=== PATIENT | male | born 1955 | race Caucasian/White ===

== ENCOUNTER 2017-06-24 13:50 | Emergency (ER) | payer OTHER ==
[~2017-06-24] VITALS: Ht 170.2 cm; Wt 62.1 kg
[~2017-06-24 13:50] MED LIST: DLN100 PO
[2017-06-24 14:05] VITALS: Ht 170.2 cm; Wt 62.1 kg
[2017-06-24 16:35] VITALS: TEMP 37.1
[2017-06-24 16:38] LABS: INFLUENZA B ANTIGEN Neg for Influ B (NEG)
[2017-06-24 16:44] LABS: ALBUMIN 3.4 gm/dl (3.4-5.0); CALCIUM 8.2 mg/dl (8.5-10.1); CREATININE 0.87 mg/dl (0.60-1.40); POTASSIUM 4.3 mmol/L (3.5-5.1); TOTAL PROTEIN 6.9 gm/dl (6.4-8.2)
--- NOTE | 2017-06-24 17:00 | DIAGNOSTIC IMAGING REPORT ---
SINGLE VIEW CHEST CLINICAL HISTORY: Cough. FINDINGS: An AP, portable, upright chest radiograph is compared to study dated 03/05/2015. Correlation is made with chest CT dated 12/24/1714. The examination is degraded by portable technique, apical lordotic positioning, and patient rotation. The cardiomediastinal silhouette is unremarkable. There is atherosclerotic calcification of the thoracic aorta. Emphysema and chronic interstitial thickening are similar to previous. No large pleural effusion is identified. Patchy airspace opacities are questioned in the right lower lung. No pneumothorax is seen. The skeletal structures are osteopenic. Chronic posttraumatic deformity and postoperative change is present in the left proximal humerus. There are numerous healed right-sided rib fractures. IMPRESSION: 1. Patchy airspace opacities are questioned at the right lung base. Correlate clinically for evidence of pneumonia. Radiographic follow-up to resolution is recommended. 2. Emphysema. Electronically signed by: Franki Merritt M.D. 06/24/2017 4:59 PM Dictated Date/Time: 06/24/2017 4:56 PM
[2017-06-24 17:19] LABS: BASO % 0.6 %; BASO ABS # 0.03 K/uL (0-0.2); EOS ABS # 0.11 K/uL (0-0.5); HEMATOCRIT 38.9 % (42-52); HEMOGLOBIN 13.3 g/dL (14.0-18.0); IG# 0.01 K/uL (0.00-0.02); LYMPH % 34.7 %; LYMPH ABS # 1.89 K/uL (1.2-3.4); MEAN CELL VOLUME 94.9 fL (80-100); MEAN CORPUSCULAR HEMOGLOBIN 32.4 pg (25-34); MEAN CORPUSCULAR HGB CONC 34.2 g/dl (32-36); MEAN PLATELET VOLUME 9.6 fL (7.4-10.4); MONO % 10.5 %; MONO ABS # 0.57 K/uL (0.11-0.59); NEUT ABS # 2.84 K/uL (1.4-6.5); PLATELET COUNT 146 K/uL (130-400); RED CELL DISTRIBUTION WIDTH CV 12.8 % (11.5-14.5); RED CELL DISTRIBUTION WIDTH SD 44.7 fL (36.4-46.3); WHITE BLOOD COUNT 5.45 K/uL (4.8-10.8)
[2017-06-24 18:23] VITALS: BP 126/77; PULSE 77; O2SAT 95
[2017-06-24] MEDS ORDERED: AZITHROMYCIN 250 MG TAB PO STA (18:30)
[2017-06-24] MEDS ORDERED: AZIT-60 PO (18:31)
[2017-06-24] MEDS ORDERED: ALBUTEROL HFA 8 GM INHALER INH ONE (18:45)
--- NOTE | 2017-06-24 22:38 | EMERGENCY ROOM VISIT NOTE ---
History Report prepared by Rosario: Bon Farnsworth Under the Supervision of: Dr. Jason Wadsworth M.D. First contact with patient: 14:37 Chief Complaint: FLU LIKE SX Stated Complaint: FLU History of Present Illness The patient is a 62 year old male who presents to the Emergency Room from [place] with complaints of persistent flu-like symptoms. The patient denies any cough recently, but is coughing persistently on exam. Pt also denies LOC, headache, fevers, chills, diaphoresis, visual changes, neck pain, chest pain, breathing difficulties, nausea, vomiting, abdominal pain, back pain, melena, hematochezia, urinary symptoms, numbness, weakness, lymphadenopathy, rash, or other complaints. The patient has a history of traumatic brain injury, and has difficulty speaking. He takes Dilantin daily and would also like to get this level tested today. Source of History: patient Position: other (Global) Quality: other (Flu-like) Timing: other (persistent) Associated Symptoms: No chest pain, No SOB, No nausea, No vomiting, No abdominal pain Review of Systems See HPI for pertinent positives and negatives. A total of ten systems were reviewed and were otherwise negative. Past Medical & Surgical Medical Problems: (1) Seizures Surgical Problems: (1) Traumatic brain injury Family History Patient reports no known family medical history. Social History Smoking Status: Current Every Day Smoker Alcohol Use: none Drug Use: none Marital Status: single Housing Status: lives alone Occupation Status: disabled Current/Historical Medications Scheduled Azithromycin (Zithromax), 250 MG PO DAILY Phenytoin Sodium (Dilantin), 100 MG PO BID Allergies Coded Allergies: No Known Allergies (Unverified , 09/21/16) Physical Exam Vital Signs Date Time Temp Pulse Resp B/P (MAP) Pulse Ox O2 Delivery O2 Flow Rate FiO2 06/24/17 18:23 77 18 126/77 95 Room Air 06/24/17 16:35 37.1 73 18 111/70 95 Room Air 06/24/17 14:05 36.7 81 18 129/91 97 Room Air Physical Exam GENERAL: Awake, alert, well-appearing, in no distress HENT: Normocephalic, atraumatic. Oropharynx unremarkable. EYES: Normal conjunctiva. Sclera non-icteric. NECK: Supple. No nuchal rigidity. FROM. No JVD. RESPIRATORY: Clear to auscultation. CARDIAC: Regular rate, normal rhythm. Extremities warm and well perfused. Pulses equal. ABDOMEN: Soft, non-distended. No tenderness to palpation. No rebound or guarding. No masses. RECTAL: Deferred. MUSCULOSKELETAL: Chest examination reveals no tenderness. The back is symmetrical on inspection without obvious abnormality. There is no CVA tenderness to palpation. No joint edema. LOWER EXTREMITIES: Calves are equal size bilaterally and non-tender. No edema. No discoloration. NEURO: Normal sensorium. No sensory or motor deficits noted. SKIN: No rash or jaundice noted. Medical Decision & Procedures ER Provider Diagnostic Interpretation: Radiology results as stated below per my review and radiologist interpretation: SINGLE VIEW CHEST CLINICAL HISTORY: Cough. FINDINGS: An AP, portable, upright chest radiograph is compared to study dated 03/05/2015. Correlation is made with chest CT dated 12/24/1714. The examination is degraded by portable technique, apical lordotic positioning, and patient rotation. The cardiomediastinal silhouette is unremarkable. There is atherosclerotic calcification of the thoracic aorta. Emphysema and chronic interstitial thickening are similar to previous. No large pleural effusion is identified. Patchy airspace opacities are questioned in the right lower lung. No pneumothorax is seen. The skeletal structures are osteopenic. Chronic posttraumatic deformity and postoperative change is present in the left proximal humerus. There are numerous healed right-sided rib fractures. IMPRESSION: 1. Patchy airspace opacities are questioned at the right lung base. Correlate clinically for evidence of pneumonia. Radiographic follow-up to resolution is recommended. 2. Emphysema. Electronically signed by: Franki Merritt M.D. 06/24/2017 4:59 PM Dictated Date/Time: 06/24/2017 4:56 PM Laboratory Results 06/24/17 16:40 Red Blood Count 4.10, Mean Corpuscular Volume 94.9, Mean Corpuscular Hemoglobin 32.4, Mean Corpuscular Hemoglobin Concent 34.2, Mean Platelet Volume 9.6, Neutrophils (%) (Auto) 52.0, Lymphocytes (%) (Auto) 34.7, Monocytes (%) (Auto) 10.5, Eosinophils (%) (Auto) 2.0, Basophils (%) (Auto) 0.6, Neutrophils # (Auto ) 2.84, Lymphocytes # (Auto) 1.89, Monocytes # (Auto) 0.57, Eosinophils # (Auto ) 0.11, Basophils # (Auto) 0.03 06/24/17 16:10 Test 06/24/17 15:00 06/24/17 16:10 06/24/17 16:40 Influenza Type A Antigen Neg for Influ A (NEG) Influenza Type B Antigen Neg for Influ B (NEG) Anion Gap 5.0 mmol/L (3-11) Est Creatinine Clear Calc Drug Dose 76.3 ml/min Estimated GFR () 106.5 Estimated GFR (Non- 91.9 BUN/Creatinine Ratio 19.6 (10-20) Calcium Level 8.2 mg/dl (8.5-10.1) Total Bilirubin 0.3 mg/dl (0.2-1) Aspartate Amino Transf (AST/SGOT) 35 U/L (15-37) Alanine Aminotransferase (ALT/SGPT) 62 U/L (12-78) Alkaline Phosphatase 112 U/L (45-117) Total Protein 6.9 gm/dl (6.4-8.2) Albumin 3.4 gm/dl (3.4-5.0) Globulin 3.5 gm/dl (2.5-4.0) Albumin/Globulin Ratio 1.0 (0.9-2) Chemistry Specimen Hemolysis Phenytoin (Dilantin) Level 25.1 mcg/mL (10-20) White Blood Count 5.45 K/uL (4.8-10.8) Red Blood Count 4.10 M/uL (4.7-6.1) Hemoglobin 13.3 g/dL (14.0-18.0) Hematocrit 38.9 % (42-52) Mean Corpuscular Volume 94.9 fL (80-100) Mean Corpuscular Hemoglobin 32.4 pg (25-34) Mean Corpuscular Hemoglobin Concent 34.2 g/dl (32-36) Platelet Count 146 K/uL (130-400) Mean Platelet Volume 9.6 fL (7.4-10.4) Neutrophils (%) (Auto) 52.0 % Lymphocytes (%) (Auto) 34.7 % Monocytes (%) (Auto) 10.5 % Eosinophils (%) (Auto) 2.0 % Basophils (%) (Auto) 0.6 % Neutrophils # (Auto) 2.84 K/uL (1.4-6.5) Lymphocytes # (Auto) 1.89 K/uL (1.2-3.4) Monocytes # (Auto) 0.57 K/uL (0.11-0.59) Eosinophils # (Auto) 0.11 K/uL (0-0.5) Basophils # (Auto) 0.03 K/uL (0-0.2) RDW Standard Deviation 44.7 fL (36.4-46.3) RDW Coefficient of Variation 12.8 % (11.5-14.5) Immature Granulocyte % (Auto) 0.2 % Immature Granulocyte # (Auto) 0.01 K/uL (0.00-0.02) Laboratory results reviewed by me Medications Administered Medications (Trade) Dose Ordered Sig/Anita Route Start Time Stop Time Status Last Admin Dose Admin Azithromycin (Zithromax Tab) 500 mg NOW STAT PO 06/24/17 18:30 06/24/17 18:31 DC 06/24/17 18:40 500 MG Albuterol (Ventolin Hfa Inhaler) 2 puffs NOW ONCE INH 06/24/17 18:45 06/24/17 18:46 DC 06/24/17 18:40 2 PUFFS ED Course 1600: The patient was evaluated in room A7. A complete history and physical exam was performed. 1829: Ordered Zithromax 50 PO. 1838: I reevaluated the patient. Discussed results and discharge instructions: He verbalized understanding and agreement. The patient is ready for discharge. Medical Decision Triage Nursing notes reviewed. The patient's presentation and history were concerning for flulike symptoms. Etiologies such as pneumonia, COPD, reactive airway disease, CHF, cardiac ischemia, pulmonary embolism, pneumothorax, musculoskeletal, infections, gastrointestinal, mood disorder as well as others were entertained. The patient was evaluated. He was concerned about his Dilantin level. This was performed and was mildly elevated. He will hold tonight and tomorrow morning. He'll resume and then have his Dilantin level rechecked. He is not exhibiting any signs of Dilantin toxicity currently. The patient has a cough. He did complain of some flulike symptoms. He was evaluated by the psychiatric he archivist. The patient is not suicidal or homicidal. He has no active psychiatric issues. The patient was found to have a mild pneumonia on chest x- ray. Blood work was unremarkable otherwise. He was given Zithromax and an albuterol MDI. A prescription was written for additional antibiotics. He was given the discharge instructions. His personal care facility was notified. Close follow-up with his primary physician was advised. If he worsens he will come back.I gave my usual and customary discussion regarding this issue. By the evaluation outlined above other emergent etiologies such as those listed in the differential, as well as others, were deemed relatively unlikely. The patient was educated about the findings as listed above. All questions were answered and the patient was pleased with the treatment. Return instructions were outlined and the patient was discharged in stable condition. The patient was referred to his PCP for follow-up for a recheck of the current condition. Blood Pressure Screening Patient's blood pressure: Normal blood pressure Impression Primary Impression: Pneumonia Additional Impression: Subtherapeutic serum dilantin level Scribe Attestation The scribe's documentation has been prepared under my direction and personally reviewed by me in its entirety. I confirm that the note above accurately reflects all work, treatment, procedures, and medical decision making performed by me. Departure Information Dispostion Home / Self-Care Prescriptions Azithromycin (ZITHROMAX) 250 Mg Tab 250 MG PO DAILY, #4 TAB Prov: Jason Wadsworth MD 06/24/17 Referrals No Doctor, Assigned (PCP) Forms HOME CARE DOCUMENTATION FORM, IMPORTANT VISIT INFORMATION Patient Instructions My [facility] Additional Instructions PNEUMONIA INSTRUCTIONS: Azithromycin(Zithromax) 250mg: Take one a day for 4 additional days. All antibiotics can cause diarrhea. If this occurs and you feel worse or it does not resolve in 1-2 days follow up with your doctor or return to the Emergency Department as this could be signs of serious underlying problems. Any medication can cause an allergic reaction, stop the pills immediately and return to the ER for rash, hives, breathing difficulties, or swelling. Hold the Dilantin today and tomorrow morning. Resume tomorrow evening as normal. Have your level rechecked on Wednesday. Albuterol Inhaler: Take 2 puffs four times daily for seven days, then as needed. Acetaminophen(Tylenol) may be used for fever or pain. Use 1000mg every six hours as needed. Avoid using more than 4000mg in a 24 hour period. AND/OR Ibuprofen(Motrin, Advil) may be used for fever or pain. Use 600mg every six hours as needed. Take with food. Avoid using more than 2400mg in a 24 hour period. Do not use 2400mg per day for more than three consecutive days without physician direction. Prolonged inappropriate use can lead to stomach upset or ulcers. Controlling your fever with Tylenol and Ibuprofen as above will make you feel better. Rest and drink plenty of fluids. Avoid strenuous activity until your symptoms resolve and your breathing returns to normal. Return to the ER for chest pain, difficulty breathing, persistent fevers, vomiting, worsening of your condition, or as needed. Follow up with your primary physician in 2-3 days for a recheck of the current condition. Problem Qualifiers
== END 2017-06-24 18:44 | disposition home or self-care (01) ==
LOC: C.EDB 13:51 → C.EDA 18:44
DX: J18.9 Pneumonia, unspecified organism (principal); R89.2 Abnormal level of other drugs, medicaments and biological substances in specimens from other organs, systems and tissues; Z87.820 Personal history of traumatic brain injury; Z79.899 Other long term (current) drug therapy; R56.9 Unspecified convulsions; F17.210 Nicotine dependence, cigarettes, uncomplicated

== ENCOUNTER 2022-01-23 16:07 | Inpatient (IN) ==
[2022-01-23] MEDS ORDERED: ONDANSETRON INJ 2 MG/ML 2 ML VIAL IV STA (16:24)
[2022-01-23] MEDS ORDERED: MoRPHine SULFATE 4 MG/ML 1 ML CARP\\VIAL IV STA (16:24)
[2022-01-23] MEDS ORDERED: SODIUM CHLORIDE 0.9% 500 ML IV STA (16:24)
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
[2022-01-23 17:35] LABS: Basophils # (auto) 0.04 K/uL (0-0.2); Basophils % (auto) 0.3 %; Eosinophils # (auto) 0.02 K/uL (0-0.50); Eosinophils % (auto) 0.2 %; Hemoglobin 13.1 g/dl (14.0-18.0); Immature Granulocytes # (auto) 0.04 K/uL (0.00-0.02); Immature Granulocytes % (auto) 0.3 %; Lymphocytes # (auto) 1.17 K/uL (1.2-3.4); Lymphocytes % (auto) 9.7 %; Mean Corpuscular Hemoglobin 31.8 pg (25.0-34.0); Mean Corpuscular Hgb Conc 32.8 g/dL (32.0-36.0); Mean Corpuscular Volume 97.1 fL (80.0-100.0); Mean Platelet Volume 9.3 fL (9.4-12.4); Monocytes # (auto) 1.18 K/uL (0.24-0.82); Monocytes % (auto) 9.8 %; Neutrophils # (auto) 9.64 K/uL (1.4-6.5); Neutrophils % (auto) 79.7 %; Platelet Count 188 K/uL (130-400); RDW Coefficient of Variation 13.4 % (11.5-14.5); RDW Standard Deviation 48.2 fL (36.4-46.3); Red Blood Count 4.12 M/uL (4.63-6.08); White Blood Count 12.09 K/ul (4.8-10.8)
[2022-01-23 17:46] LABS: Partial Thromboplastin Ratio 0.9; Partial Thromboplastin Time 24.2 Seconds (21.0-31.0); Prothrombin Time 10.8 Seconds (9.0-12.0)
--- NOTE | 2022-01-23 17:53 | XRay Report ---
SINGLE VIEW PELVIS; 2 VIEWS RIGHT HIP CLINICAL HISTORY: Fall. Right hip pain. FINDINGS: An AP portable AP views of the pelvis with AP and frog-leg views of the right hip are corre lated with pelvic CT dated 12/05/2020. The skeletal structures are heterogeneously osteopenic. There is chronic posttraumatic deformity of the right pubic ring. There is a subtle nondisplaced acute fractu re through the greater trochanter of the right femur. No additional acute fracture seen involving the hips or bony pelvis. Mild joint space narrowing is present in the hips. Degenerative change is noted in the sacroiliac joints. The overlying soft tissues are within normal limits. Heterotopic bone form ation is again seen along the right femoral shaft. IMPRESSION: Subtle nondisplaced fracture through the greater trochanter of the right femur. Electronically signed by: Franki Merritt M.D. 01/23/2022 5:51 PM
[2022-01-23 17:56] LABS: Alanine Aminotransferase 24 U/L (7-52); Albumin Globulin Ratio 1.5 (0.9-2); Albumin Level 4.2 gm/dl (3.4-5.0); Alkaline Phosphatase 91 U/L (34-104); Anion Gap 5 (3-11); Aspartate Aminotransferase 22 U/L (13-39); BUN Creatinine Ratio 32.1 (10-20); Bilirubin,Total 0.4 mg/dl (0.2-1.0); Blood Urea Nitrogen 26 mg/dl (6-23); Calcium 9.2 mg/dl (8.5-10.1); Carbon Dioxide 28 mmol/L (21-32); Chloride 106 mmol/L (98-107); Est GFR (African American) 106.6 ml/min; Globulin 2.8 gm/dl (2.5-4.0); Glucose 125 mg/dl (70-99(Fasting)); Lipase 22 U/L (11-82); Potassium 4.5 mmol/L (3.5-5.1); Sodium 139 mmol/L (136-145)
[2022-01-23 18:02] LABS: Troponin I High Sensitivity 3.1 pg/ml (0-20)
--- NOTE | 2022-01-23 18:19 | XRay Report ---
SINGLE VIEW CHEST CLINICAL HISTORY: Atypical chest pain FINDINGS: An AP, portable, upright chest radiograph is compared to study dated 12/05/2020 and correlate d with chest CT dated 12/31/2014. The cardiomediastinal silhouette is unremarkable noting atherosclero tic calcification of the thoracic aorta. There is fullness of the left hilum. Emphysema and chronic i nterstitial thickening is similar to previous. Patchy airspace opacities are present in the lower fabian gs bilaterally, left greater than right. There are foci of parenchymal scarring seen throughout both lungs. No large pleural effusion or pneumothorax is seen. The skeletal structures are osteopenic. The re are healed bilateral rib fractures. Postoperative change is noted in the left proximal humerus. IMPRESSION: 1. Emphysema. 2. Patchy airspace opacities are noted in the lower lungs bilaterally, left greater than right. Corre late clinically for evidence of an infectious/inflammatory pneumonitis. Radiographic follow-up to res olution is recommended. 3. There is fullness of the left hilum which may represent dilatation of the pulmonary artery. A none mergent contrast-enhanced chest CT is recommended to assess for underlying mass lesion or adenopathy. ACT 112: Negative or not required by law. Electronically signed by: Franki Merritt M.D. 01/23/2022 6:17 PM
[2022-01-23] MEDS ORDERED: cefTRIAXone SODIUM 2,000 MG/70 ML BAG IV STA (18:50)
--- NOTE | 2022-01-23 22:17 | History and Physical Report ---
DATE OF ADMISSION: 01/23/2022. CHIEF COMPLAINT: Fall. HISTORY OF PRESENT ILLNESS: A 66-year-old male with past medical history significant for emphysema, ongoing tobacco abuse, history of head injury, repair of the windpipe, traumatic brain injury long time back, as per the patient 1980, history of posttraumatic seizure disorder; the patient says he did not have a seizure since 1987, history of falls, comes because of fall. The patient is somewhat difficult to understand because of his surgery to the windpipe, but this seemed to be like a mechanical fall. No loss of consciousness. No hitting of the head. He was able to get up and able to walk with limping. Currently, resting comfortably, hemodynamically stable. He has scratches all over his lower extremities and upper chest and upper back, he says from the bug bites. He lives alone. 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 He says he is eating and drinking okay, he swallows okay. Denies any fever, denies any headache, denies any neck pain. He has some back pain. 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 Denies any chest pain, no shortness of breath. He has a chronic cough from his smoking. He says he can ambulate fine 2-3 miles. No nausea, no abdominal pain. Normal bowel and bladder movements. ALLERGIES: No known drug allergies. PAST MEDICAL HISTORY: As mentioned above. PAST SURGICAL HISTORY: Colonoscopy, tonsillectomy, adenoidectomy, repair of the windpipe opening related to closed head injury. MEDICATIONS: The patient is on phenytoin 100 mg p.o. b.i.d. FAMILY HISTORY: Significant for father had diabetes; mother had COPD. SOCIAL HISTORY: Single, currently smoking 1 pack a day for 25 years. Alcohol, rarely. No drug use. REVIEW OF SYSTEMS: As per HPI. Rest of the review of systems is negative. PHYSICAL EXAMINATION: GENERAL: The patient is alert and awake, not in acute distress. VITAL SIGNS: Temperature 37.7, pulse 93, respiratory rate 22, blood pressure 127/74, oxygen 97% on 2 liters. HEENT: No pallor. No icterus. Pupils equal, round and reactive to light. Oral mucosa moist. NECK: No JVD. No neck masses. CARDIOVASCULAR: S1 and S2 heard. Regular rate and rhythm. No murmur, no gallop. RESPIRATORY SYSTEM: Normal AP diameter. No accessory muscle use. No wheezing, no crackles. ABDOMEN: Soft, bowel sounds present, nontender, no distention. CENTRAL NERVOUS SYSTEM: Alert and awake. No facial droop. Obeys simple commands. Moves extremities. EXTREMITIES: Bilateral scratches. No edema seen. No external rotation of the lower extremities. SKIN: Scratch bruises seen in the lower extremities, in the upper chest and upper trunk. LABORATORY DATA: WBC 12, hemoglobin 13.1, hematocrit 40, platelets 188. PT 10.8, INR 1, APTT 24.2. Sodium 139, potassium 4.5, chloride 106, bicarbonate 28, BUN 26, creatinine 0.8, serum glucose 125, calcium 9.2, total bilirubin 0.4, AST 22, ALT 24, alkaline phosphatase 91. Troponin I high sensitivity 3.1, lipase 22, phenytoin 19.1. SARS-CoV-2 rapid test negative. IMAGING DATA: Hip and pelvic x-ray, subtle nondisplaced fracture through the greater trochanter of the right femur. Chest x-ray, emphysema, patchy airspace opacities are noted in the lower lungs bilaterally, left greater than right. Correlate clinically for evidence of infectious, inflammatory pneumonitis. Fullness in the left hilum, which may represent dilatation of the pulmonary artery and nonemergent contrast-enhanced chest CT is recommended to assess for underlying mass lesion or adenopathy. ASSESSMENT AND PLAN: This is a 66-year-old male who presents with fall. 1. Fall: Hip x-ray showing subtle nondisplaced fracture of the greater trochanter of the right femur. The patient had nonsignificant pain. He is able to ambulate after all with limp. We will get a CT scan, we will keep n.p.o. after midnight. Consult orthopedics. Pain control. We will get an EKG. If the patient's EKG is okay, the patient should be at acceptable risk to proceed with procedure. 2. History of tobacco abuse: Needs counseling. 3. Questionable pneumonia: The patient had fever and white count. Chest x-ray showing possible pneumonitis versus atelectasis, and also possible adenopathy in the hilar region. We will follow CT chest. Empirically start on Rocephin and doxycycline. 4. History of seizures: On phenytoin. The patient likes to see a neurologist. 5. Questionable bedbug bites. Antibiotics as above. We will put him on triamcinolone cream as needed. 6. Deep venous thrombosis prophylaxis: Not getting anticoagulant for possible procedure. Could not place SCD because of femur fx. DISPOSITION: Admit to medical floor. Social service to help with discharge planning. Job ID: [id number] [facility]ENTERBety
[2022-01-24] MEDS ORDERED: POLYETHYLENE (MIRALAX) 17 GM PACK PO PRN (00:39)
[2022-01-24] MEDS ORDERED: ONDANSETRON INJ 2 MG/ML 2 ML VIAL IV PRN (00:39)
[2022-01-24] MEDS: D5W AND 1/2NSS 1,000 ML IV SCH ×3 (01:13→20:51)
[2022-01-24] MEDS: DOXYCYCLINE HYCLATE 100 MG in DEXTROSE 5% 100 ML IV SCH ×2 (01:19→13:54)
[2022-01-24] MEDS: PHENYTOIN SODIUM ER 100 MG CAP PO SCH ×3 (01:19→21:06)
[2022-01-24] MEDS: MoRPHine SULFATE 4 MG/ML 1 ML CARP\\VIAL IV PRN ×3 (01:30→16:14)
[2022-01-24 06:43] LABS: Basophils # (auto) 0.03 K/uL (0-0.2); Basophils % (auto) 0.4 %; Eosinophils # (auto) 0.15 K/uL (0-0.50); Hematocrit (blood only) 34.3 % (40.1-51.0); Hemoglobin 11.1 g/dl (14.0-18.0); Immature Granulocytes # (auto) 0.02 K/uL (0.00-0.02); Immature Granulocytes % (auto) 0.3 %; Lymphocytes # (auto) 1.74 K/uL (1.2-3.4); Lymphocytes % (auto) 23.6 %; Mean Corpuscular Hemoglobin 31.3 pg (25.0-34.0); Mean Corpuscular Hgb Conc 32.4 g/dL (32.0-36.0); Mean Corpuscular Volume 96.6 fL (80.0-100.0); Mean Platelet Volume 9.8 fL (9.4-12.4); Monocytes # (auto) 0.85 K/uL (0.24-0.82); Monocytes % (auto) 11.5 %; Neutrophils # (auto) 4.57 K/uL (1.4-6.5); Neutrophils % (auto) 62.2 %; Platelet Count 162 K/uL (130-400); RDW Coefficient of Variation 13.3 % (11.5-14.5); RDW Standard Deviation 47.8 fL (36.4-46.3); Red Blood Count 3.55 M/uL (4.63-6.08); White Blood Count 7.36 K/ul (4.8-10.8)
[2022-01-24 07:07] LABS: BUN Creatinine Ratio 30.3 (10-20); Calcium 8.2 mg/dl (8.5-10.1); Creatinine Clr Calc Pharmacy 76.4 ml/min; Magnesium 1.6 mg/dl (1.7-2.4)
[2022-01-24] MEDS ORDERED: TRIAMCINOLONE ACET 0.1% OINT 454 GM EXT PRN (07:55)
[2022-01-24] MEDS: ALBUTEROL 0.083% NEBU SOLN 3 ML VIAL NEB PRN (08:35)
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
--- NOTE | 2022-01-24 12:36 | CT Scan Report ---
CT SCAN OF THE RIGHT HIP WITHOUT IV CONTRAST CLINICAL HISTORY: Fall. Right femoral fracture seen by x-ray. COMPARISON STUDY: Pelvic CT dated 12/05/2020. Radiographs through the pelvis dated 01/23/2022. TECHNIQUE: CT scan of the right hip is performed from the bony pelvis to the femoral shaft. Images ar e reviewed in the axial, sagittal, and coronal planes. IV contrast was not administered for this exam ination. A dose lowering technique was utilized adhering to the principles of ALARA. FINDINGS: The skeletal structures are osteopenic. Again seen is a nondisplaced fracture through the g reater trochanter of the right proximal femur. Overlying soft tissue edema is noted. No intertrochant kristy extension is identified. No additional acute fracture is identified. There is chronic posttrauma tic deformity of the right pubic ring. No lytic or blastic lesion is seen. Heterotopic ossification i s partially visualized along the right femoral shaft. Mild arthritic change is noted in the right hip . The bladder and prostate are normal as visualized. No free fluid is seen in the pelvis. Moderate fe carly retention is noted in the rectosigmoid. There is no right pelvic sidewall or inguinal adenopathy. IMPRESSION: Nondisplaced fracture through the greater trochanter of the right proximal femur. ACT 112: Negative or not required by law. Electronically signed by: Kristy Merritt M.D. 01/24/2022 12:33 PM
--- NOTE | 2022-01-24 12:53 | CT Scan Report ---
CT SCAN OF THE CHEST WITHOUT IV CONTRAST CLINICAL HISTORY: Left hilar fullness. Left lung consolidation. COMPARISON STUDY: Chest x-ray dated 01/23/2022. Chest CT dated 12/31/2014. TECHNIQUE: CT scan of the thorax was performed from the thoracic inlet to the upper abdomen. Images are reviewed in the axial, sagittal, and coronal planes. IV contrast was not administered for this ex amination as per the referring clinician. A dose lowering technique was utilized adhering to the rojelio Sepulveda. FINDINGS: Thyroid: Imaged portions of the thyroid gland are normal in size and attenuation. Thoracic aorta: There is mild atherosclerotic calcification of the thoracic aorta, which is normal in caliber and demonstrates standard 3-vessel arch anatomy. Heart: The heart is normal in size and without pericardial effusion. There are coronary artery calcif ications. Lungs and pleural spaces there is moderate to advanced emphysema. Foci of parenchymal scarring are se en throughout both lungs. The trachea is clear. Intraluminal secretions/debris is seen in the lower l obes bilaterally with associated peribronchial thickening. Mild consolidative changes seen in these l eft upper lobe along the major fissure. There is trace right pleural effusion with dependent consolid ation at the right lung base. Mediastinum: There is no mediastinal lymphadenopathy. Clover: Not well assessed without IV contrast. Axillae: There is no axillary lymphadenopathy. Upper abdomen: Partially visualized upper abdominal viscera is within normal limits. Skeletal structures: The skeletal structures are osteopenic. Degenerative change and hyperkyphosis ar e noted throughout the thoracic spine. There are numerous chronic appearing thoracolumbar compression deformities. There is chronic posttraumatic deformity of both clavicles. There are numerous healed b ilateral rib fractures. A cortical lag screws noted in the left proximal femur. No lytic or blastic b laron lesions are seen. IMPRESSION: 1. Emphysema. 2. Intraluminal secretions/debris fill the lower lobe airways bilaterally with associated peribronchi al thickening. Correlate clinically for evidence of aspiration. 3. There is airspace consolidation in the left upper lobe. Additionally, there is trace right pleural effusion with dependent consolidation at the right lung base. Correlate clinically for evidence of p neumonia/aspiration pneumonitis. Radiographic follow-up to resolution is recommended. 4. No left hilar abnormality is seen on this unenhanced examination. The questioned radiographic abno rmality likely corresponds to prominence of the pulmonary artery. 5. Additional findings as above. ACT 112: Negative or not required by law. Electronically signed by: Franki Merritt M.D. 01/24/2022 12:51 PM
--- NOTE | 2022-01-24 14:13 | XRay Report ---
RIGHT FEMUR 3 VIEWS CLINICAL HISTORY: Right hip pain. FINDINGS: AP, frog-leg, and crosstable lateral views of the right femur are correlated with CT scan o f the right hip performed the same day 01/24/2022 and compared to radiographs of the right hip dated . The skeletal structures are osteopenic. Again seen is a nondisplaced fracture through the g reater trochanter of the right proximal femur. The remainder of the femur as well as the visualized r ight hemipelvis are intact. Degenerative change is noted in the right hip and knee joints. Chondrocal cinosis is noted in the knee. Heterotopic ossification along the lateral cortex of the proximal femor al shaft is unchanged from previous. The soft tissues of the thigh are otherwise normal as imaged. IMPRESSION: 1. Unchanged appearance of a fracture through the greater trochanter of the right proximal femur. 2. No additional femoral fracture is identified. 3. Heterotopic ossification along the lateral femoral shaft is unchanged from prior examinations. Electronically signed by: Franki Merritt M.D. 01/24/2022 2:10 PM
--- NOTE | 2022-01-24 16:02 | Hospitalist Progress Note ---
Date of Service January 24, 2022 Assessment & Plan (1) Closed fracture of greater trochanter of right femur: Plan: Status post mechanical fall CT of the right hip showed greater trochanteric fracture Appreciate Ortho input and recommendation (2) Fall: Plan: Mechanical fall No cardiac and respiratory symptoms prior to the fall (3) Traumatic brain injury: Plan: History of traumatic brain injury in 1980 Speech impairment and seizure disorder since then (4) Seizures: Plan: Posttraumatic seizure Continue current medications (5) COPD (chronic obstructive pulmonary disease): Plan: Continues to smoke Has chronic cough with emphysematous change on CAT scan Possible infiltration bilaterally could be secondary to aspiration Has been started on intravenous ceftriaxone and doxycycline Will get speech evaluation (6) Rash and nonspecific skin eruption: Plan: Bilateral leg rash with evidence of scratching No definite infection noted Could be secondary to bug bites bitee Plan History of repair of trachea Likely cause for the speech impairment We will get a speech evaluation DVT prophylaxis SCDs for now CODE STATUS Full Admission and Anticipated Discharge Date Admission Date: January 23, 2022 Subjective 01/24/2022 The patient was seen and examined in medical floor He complains to have pain in the right hip but denies any other significant symptoms History of significant brain injury in 1980 with seizure disorder and speech impairment Has had a mechanical fall with fracture of the right hip Review of Systems Review of Systems: All systems reviewed and are unremarkable except as noted below Neurologic: Significant speech impairment secondary to brain injury 1980 Physical Exam Physical Exam: Lying in bed comfortably Constitutional: + ill appearing and + thin Eyes: PERRL, conjunctivae normal, anicteric sclerae ENMT: external ear and nose normal, oropharynx normal Neck: trachea midline, no thyromegaly Respiratory: no respiratory distress Auscultation: + diminished lung sounds, + crackles (Minimal bibasilar crackles) and + wheezes (Minimal wheezing anteriorly) Cardiovascular: Rate/Rhythm: regular rate and regular rhythm; not tachycardic Heart Sounds: normal S1 and normal S2; no murmur Extremities: no edema Gastrointestinal (Abdomen): Inspection/Auscultation: normal bowel sounds; abdomen not distended Percussion/Palpation: abdomen soft; abdomen nontender Musculoskeletal: Any movement of the right lower extremity is painful at the hip Neurologic: Alert, awake and oriented x3. Generally weak. Significant speech impairment due to old brain injury Lymphatic: no cervical or axillary lymphadenopathy Results & Data Results & Data ([facility]) Vital Signs (Past 12 Hours) Vital Signs Temp Pulse Pulse Resp BP Pulse Ox O2 Del Method 01/24/22 14:00 37 C 71 20 105/66 93 Nasal Cannula 01/24/22 07:30 Nasal Cannula 01/24/22 08:35 73 18 95 Nasal Cannula 01/24/22 08:18 36.9 C 82 16 115/71 91 Nasal Cannula O2 Flow Rate 01/24/22 14:00 2 01/24/22 07:30 2 01/24/22 08:35 2 01/24/22 08:18 2 Laboratory Results Short CBC 01/23/22 01/24/22 Range/Units 17:05 05:29 WBC 12.09 H 7.36 (4.8-10.8) K/ul Hgb 13.1 L 11.1 L (14.0-18.0) g/dl Hct 40.0 L 34.3 L (40.1-51.0) % Plt Count 188 162 (130-400) K/uL BMP 01/23/22 01/24/22 17:05 05:29 Sodium 139 136 Potassium 4.5 4.0 Chloride 106 104 Carbon Dioxide 28 28 BUN 26 H 20 Creatinine 0.81 0.66 Glucose 125 H 92 Calcium 9.2 8.2 L Liver Function 01/23/22 Range/Units 17:05 Total Bilirubin 0.4 (0.2-1.0) mg/dl AST 22 (13-39) U/L ALT 24 (7-52) U/L Alkaline Phosphatase 91 (34-104) U/L Albumin 4.2 (3.4-5.0) gm/dl Medications Administered Current Inpatient Medications Acetaminophen (Acetaminophen 325 Mg Tab) 650 mg PO Q4H PRN PRN Reason: pain/fever Stop: 02/23/22 00:38 Albuterol (Albuterol 0.083% Nebu Soln 3 Ml Vial) 2.5 mg NEB Q6R PRN; Protocol PRN Reason: Shortness Of Breath Or Wheezing Stop: 02/23/22 07:57 Last Admin: 01/24/22 08:35 Dose: 2.5 mg Ceftriaxone Sodium 1,000 mg/ (Dextrose) 60 mls @ 100 mls/hr IV Q24H RAFAEL; Protocol Stop: 01/31/22 20:59 Doxycycline Hyclate 100 mg/ (Dextrose) 110 mls @ 50 mls/hr IV Q12H RAFAEL Stop: 01/31/22 00:59 Last Admin: 01/24/22 13:54 Dose: 50 mls/hr Dextrose/Sodium Chloride (D5w And 1/2nss) 1,000 mls @ 100 mls/hr IV .Q10H RAFAEL Stop: 02/23/22 00:38 Last Infusion: 01/24/22 11:33 Dose: 100 mls/hr Morphine Sulfate (Morphine Sulfate 4 Mg/Ml 1 Ml Carp\Vial) 3 mg IV Q4H PRN PRN Reason: Pain Stop: 02/07/22 00:38 Last Admin: 01/24/22 10:50 Dose: 3 mg Ondansetron HCl (Ondansetron Inj 2 Mg/Ml 2 Ml Vial) 4 mg IV Q6H PRN PRN Reason: Nausea Stop: 02/23/22 00:38 Phenytoin Sodium (Phenytoin Sodium Er 100 Mg Cap) 100 mg PO BID RAFAEL Stop: 02/23/22 00:38 Last Admin: 01/24/22 09:27 Dose: 100 mg Polyethylene Glycol (Polyethylene (Miralax) 17 Gm Pack) 17 gm PO DAILY PRN PRN Reason: Constipation Stop: 02/23/22 00:38 Triamcinolone Acetonide (Triamcinolone Acet 0.1% Oint 454 Gm) 1 appln EXT BID PRN PRN Reason: Itching Stop: 02/23/22 07:54 (1) Closed fracture of greater trochanter of right femur Encounter type: initial encounter Fracture alignment: displaced Qualified Code(s): S72.111A - Displaced fracture of greater trochanter of right femur, initial encounter for closed fracture (2) Fall Encounter type: initial encounter Qualified Code(s): W19.XXXA - Unspecified fall, initial encounter
--- NOTE | 2022-01-24 17:43 | Magnetic Resonance Report ---
MRI OF THE RIGHT HIP WITHOUT IV CONTRAST CLINICAL HISTORY: Trochanteric fracture of the right femur. COMPARISON STUDY: CT scan of the right hip dated 01/24/2022. Radiographs of the right hip dated 022. TECHNIQUE: MRI of the right hip and bony pelvis is performed utilizing various T1 and T2-weighted seq uences in the axial, sagittal, and coronal planes. IV contrast was not administered for this examinat ion. The examination is degraded by motion artifact. FINDINGS: There is significant marrow edema identified within the greater trochanter of the right fem ur with a nondisplaced comminuted greater trochanteric fracture. This extends inferiorly involving th e posterior cortex of the intertrochanteric femur as seen on axial image #20 and coronal image #18. T his involves approximately 50% of the cortical thickness of the intertrochanteric region. No addition al acute fracture is identified. The left proximal femur and the visualized bony pelvis appear intact . There is chronic posttraumatic deformity of the right pubic ring. Significant soft tissue edema and hemorrhage overlies the fracture and the right proximal femur. There is generalized atrophy of the r egional musculature. Intramuscular edema is seen within the right gluteus medius and minimus muscles. The gluteus medius tendon appears intact. There is also edema of the right proximal thigh musculatur e. The origin of the hamstrings tendons are maintained. Degenerative change is present both hips. The re are small hip joint effusions. There is no evidence of avascular necrosis of the femoral heads. Th e bladder, prostate, and seminal vesicles are normal as imaged. There is no free fluid in the pelvis. No pelvic sidewall or inguinal adenopathy is identified. Heterotopic ossification is partially visua lized on the lateral cortex of the right proximal femur. IMPRESSION: 1. Comminuted fracture of the greater trochanter of the right proximal femur as above with associated marrow edema. 2. Fracture extends inferiorly involving the posterior cortex of the intertrochanteric femur as above . 3. No additional fracture is seen. 4. Significant soft tissue and intramuscular edema overlies the right proximal femur as above. Electronically signed by: Franki Merritt M.D. 01/24/2022 5:41 PM
[2022-01-24] MEDS ORDERED: MoRPHine SULFATE 4 MG/ML 1 ML CARP\\VIAL IV PRN (18:02)
[2022-01-24] MEDS ORDERED: TRIAMCINOLONE ACET 0.1% OINT 15 GM TUBE EXT PRN (19:15)
[2022-01-24] MEDS ORDERED: MAGNESIUM SULFATE / D5W 1 GM/100 ML BAG IV ONE (19:21)
[2022-01-24] MEDS: cefTRIAXone SODIUM 1,000 MG in DEXTROSE 5% 50 ML IV SCH (20:51)
[2022-01-25] MEDS: DOXYCYCLINE HYCLATE 100 MG in DEXTROSE 5% 100 ML IV SCH ×2 (00:24→12:25)
[2022-01-25] MEDS: ACETAMINOPHEN 325 MG TAB PO PRN ×2 (00:36→14:21)
[2022-01-25] MEDS: D5W AND 1/2NSS 1,000 ML IV SCH (06:25)
[2022-01-25 06:27] LABS: Basophils # (auto) 0.03 K/uL (0-0.2); Basophils % (auto) 0.3 %; Eosinophils # (auto) 0.26 K/uL (0-0.50); Eosinophils % (auto) 2.7 %; Hematocrit (blood only) 38.3 % (40.1-51.0); Hemoglobin 12.5 g/dl (14.0-18.0); Immature Granulocytes # (auto) 0.03 K/uL (0.00-0.02); Immature Granulocytes % (auto) 0.3 %; Lymphocytes # (auto) 1.31 K/uL (1.2-3.4); Lymphocytes % (auto) 13.5 %; Mean Corpuscular Hemoglobin 31.4 pg (25.0-34.0); Mean Corpuscular Hgb Conc 32.6 g/dL (32.0-36.0); Mean Corpuscular Volume 96.2 fL (80.0-100.0); Mean Platelet Volume 9.1 fL (9.4-12.4); Monocytes # (auto) 1.12 K/uL (0.24-0.82); Monocytes % (auto) 11.6 %; Neutrophils # (auto) 6.94 K/uL (1.4-6.5); Neutrophils % (auto) 71.6 %; Platelet Count 159 K/uL (130-400); RDW Standard Deviation 46.4 fL (36.4-46.3); Red Blood Count 3.98 M/uL (4.63-6.08); White Blood Count 9.69 K/ul (4.8-10.8)
[2022-01-25 07:00] LABS: BUN Creatinine Ratio 25.8 (10-20); Calcium 8.9 mg/dl (8.5-10.1); Creatinine Clr Calc Pharmacy 76.4 ml/min; Magnesium 1.8 mg/dl (1.7-2.4); Potassium 4.3 mmol/L (3.5-5.1)
[2022-01-25] MEDS ORDERED: ePHEDrine sulfate 50 MG/ML AMP IV PRN (07:16)
[2022-01-25] MEDS ORDERED: ATROPINE SULFATE 0.1 MG/ML 10ML SYR IV PRN (07:16)
[2022-01-25] MEDS ORDERED: ONDANSETRON INJ 2 MG/ML 2 ML VIAL IV PRN (07:16)
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
[2022-01-25] MEDS ORDERED: MIDAZOLAM HCL 1 MG/ML 2ML VIAL ONE (07:19)
[2022-01-25] MEDS ORDERED: fentaNYL citrate 100 MCG/2 ML VIAL ONE ×2 (07:19→09:41)
--- NOTE | 2022-01-25 07:21 | Electrocardiogram Report ---
Test Reason : Blood Pressure : / mmHG Vent. Rate : 083 BPM Atrial Rate : 083 BPM P-R Int : 152 ms QRS Dur : 092 ms QT Int : 388 ms P-R-T Axes : 073 050 069 degrees QTc Int : 455 ms Normal sinus rhythm Normal ECG When compared with ECG of 08-AUG-2019 16:01, No significant change was found Confirmed by Jin Shetty ([id number]) on 01/25/2022 7:21:00 AM Referred By: REFERRED SELF Confirmed By:Jin Shetty
--- NOTE | 2022-01-25 07:51 | History & Physical Bridge Note ---
Date of Service January 25, 2022 History & Physical Bridge Note I have examined the patient, reviewed the History & Physical and in the interval since the performance of the History & Physical I have noted the following changes of clinical significance: no changes noted
[2022-01-25] MEDS ORDERED: BUPIVACAINE 0.5 % 5 MG/1 ML MPF 30ML VIAL ONE (08:17)
[2022-01-25] MEDS ORDERED: ceFAZolin 1000MG 1,000 MG/7.5 ML SYR IV ONE (08:43)
[2022-01-25] MEDS ORDERED: LIDOCAINE 2% MPF LOCAL 5 ML VIAL INFIL ONE (08:57)
[2022-01-25] MEDS ORDERED: PROPOFOL IV EMULSION 10 MG/ML 20 ML VIAL IV ONE (08:57)
[2022-01-25] MEDS ORDERED: ePHEDrine sulfate 50 MG/ML SYR ONE (08:57)
[2022-01-25] MEDS ORDERED: ONDANSETRON INJ 2 MG/ML 2 ML VIAL ONE (08:57)
[2022-01-25] MEDS ORDERED: ceFAZolin 330 MG/ML 1 GM VIAL ONE (08:57)
[2022-01-25] MEDS ORDERED: PHENYLEPHRINE 100MCG/ML 5ML SYR ONE (08:57)
--- NOTE | 2022-01-25 09:16 | Post Operative Brief Note ---
Immediate Post Op Note v1 Date of Surgery January 25, 2022 Pre & Post Diagnosis Operation Date: 01/25/22 10:00 Pre-Op Diagnosis: Right intertrochanteric hip fracture Post-Op Diagnosis: Right intertrochanteric hip fracture I identified the patient and participated in the time-out.: Yes Procedure Operation Date: 01/25/22 10:00 Actual Procedures p Open Reduction Internal Fixation Right Intertrochanteric Fracture with Synthes titanium cannulated trochanteric nail 12 mm x 130 degrees x 170 mm, 11 mm x 95 mm helical blade, 5 mm x 50 mm locking screw (Right) - Antonio Llanes DO Surgeon Antonio Llanes DO [employer] Williams Syed PA-C Estimated Blood Loss 5 Findings Consistent with Post-Op Diagnosis Drains Mireles Catheter Anesthesia Type General Regional Complications none Disposition Accompanied Patient To Recovery: No
[2022-01-25] MEDS: fentaNYL citrate 100 MCG/2 ML VIAL IV PRN ×2 (09:42→09:52)
--- NOTE | 2022-01-25 10:00 | Anesthesiology Progress Note ---
Date of Service January 25, 2022 Anesthesia Post Procedure Vital Signs Vital Signs: Temp Pulse Pulse Resp BP Pulse Ox O2 Del Method 01/25/22 09:30 95 H 18 113/65 98 Oxymask 01/25/22 09:22 97.5 F L 86 16 174/82 H 96 Oxymask 01/25/22 07:29 92 Nasal Cannula 01/25/22 07:08 98.2 F 81 18 120/80 90 Nasal Cannula 01/24/22 23:45 98.8 F 71 18 126/76 93 Nasal Cannula 01/24/22 19:45 Nasal Cannula 01/24/22 14:00 98.6 F 71 20 105/66 93 Nasal Cannula O2 Flow Rate 01/25/22 09:30 10 01/25/22 09:22 10 01/25/22 07:29 2.5 01/25/22 07:08 2.5 01/24/22 23:45 2 01/24/22 19:45 2 01/24/22 14:00 2 Pain Intensity Right Hip: Pain Intensity: 10 Transfer of Care Handoff Completed per policy Notes Mental Status: alert / awake / arousable and participated in evaluation Patient Amnestic to Procedure: Yes Nausea / Vomiting: adequately controlled Pain: adequately controlled Airway Patency, RR, SpO2: stable & adequate BP & HR: stable & adequate Hydration State: stable & adequate Anesthetic Complications: no major complications apparent and Pt Satisfied with anesthetic care
--- NOTE | 2022-01-25 10:03 | Fluoroscopy Report ---
FL hip RT 2-3V CLINICAL HISTORY: Right troch nail COMPARISON STUDY: MR right hip 01/24/2022. FLUOROSCOPY TIME: 1 minute and 9 seconds. FINDINGS: 4 fluoroscopic spot images of the right hip demonstrates internal fixation of a right inter trochanteric fracture with an intramedullary popeye and femoral neck pin. The hardware appears intact. A lignment appears anatomic. IMPRESSION: Fluoroscopic assistance provided for internal fixation of a right intertrochanteric femor al fracture. ACT 112: Negative or not required by law. Electronically signed by: Ganesh Chen M.D. 01/25/2022 10:00 AM
--- NOTE | 2022-01-25 10:04 | Operative Report (OR) ---
DATE OF PROCEDURE: 01/25/2022. PREOPERATIVE DIAGNOSIS: Right hip intertrochanteric fracture. POSTOPERATIVE DIAGNOSIS: Right hip intertrochanteric fracture. PROCEDURE: Open reduction and internal fixation of right intertrochanteric hip fracture with a Synth es titanium cannulated trochanteric nail, 12 mm x 130 degrees x 170 mm, 11 mm x 95 mm helical blade, 5 mm x 50 mm locking screw. SURGEON: Antonio Llanes DO. AQUATIC PHYSIOTHERAPIST: Williams Syed PA-C who was present for patient positioning, sterile prep and drape, m anagement of retractors and instruments. He was present through the critical portions of the case inc luding wound closure, application of sterile dressing and transport of the patient to recovery. ANESTHESIA: General, regional. SPECIMENS: None. DRAINS: None. COMPLICATIONS: None. BLOOD LOSS: 5 mL. PERTINENT HISTORY: This is a 66-year-old gentleman who sustained a fall onto his right hip. He was transferred to [facility] due to difficulty with ambulation. Pain in the hip. He was admitted to the hospitalist service. Radiographs and CT scans were obtained, which were inconclu sive for intertrochanteric fracture. He was noted to have a superior greater trochanter fracture; ho herb, then an MRI was performed and noted to have an intertrochanteric fracture of the right hip wit h extension involving 50% or more of the intertrochanteric region. The patient was then scheduled fo r surgery as indicated. All potential risks, benefits, complications, alternatives, rehab potential for incomplete relief of symptoms, need for further surgery, DVT, PE, , persistent pain, swelling, scarring, weakness, ne urovascular injury, wound complications, hardware failure, nonunion, malunion, bone fracture were dis cussed with the patient. The patient decided to proceed with the procedure as indicated. PROCEDURE: The patient was transferred to the operative suite. The proper site was identified. The co nsent was reviewed, the patient was then administered sedation and spinal anesthetic. Once appropriat e, the patient then transferred to the fracture table where the lower extremity was placed in fractur e table traction and the nonoperative leg was placed in the well leg [place]. All bony prominences wer e properly padded and protected. The padded post was placed in the peroneal and the patient was posit ioned appropriately. Next the left leg was placed on traction and reduction of the fracture was perfo rmed under fluoroscopic control. Next the operative hip was then sterilely prepped and draped in the usual fashion. Next a 10-blade scalpel incision was used to make an incision proximal to the greater trochanter. The incision was deep in the subcutaneous tissue and fascia and the tip of the greater tr ochanter was then palpated followed by placement of a guide pin under fluoroscopic control driven int o the greater trochanter down to the level of the less trochanter. This was confirmed in AP and later al projections followed by placement of the proximal reamer over the cannulated guide pin. Next the r eamer was then removed using the soft tissue protector, which was also removed. Next the ball tip judy de popeye was placed into the proximal femur under fluoroscopic control confirmed with AP and lateral fl uoroscope projections. Next the trochanteric nail was then passed over the guide popeye into the femur, the guide popeye was removed and then under fluoroscopic control appropriate level of the femoral nail w as then placed in AP projections. Next the targeting device was then fixed to the driving handle and 10-blade scalpel incision was made in the lateral aspect of the thigh. Next the tissue protector and cannulated guide system was then passed into the soft tissue until it was securely fixed against a la teral aspect of the femoral cortex. This was also confirmed under C-arm. Next the guide pin for the s piral blade was driven into the lateral aspect of the femur confirming this with AP lateral projectio ns until the guide pin was in the center of the femoral neck and head approximately 5 mm from the sub cortical bone of the femur. Next the spiral blade was then measured and then the lateral cortex was t hen drilled with the cortex reamer followed by use of the triple reamer with the depth stop set at ap propriate depth. In this case a 11 mm x 95 mm helical, blade was then inserted over the cannulated gu wilfred popeye under fluoroscopic control. This was seated appropriately then traction was reduced from the limb and the fracture was then gently compressed and then locked proximally with the flexible screwdr iver. Next the helical blade was then disengaged from its insertion handle, insertion handle was then removed and the guide pin was removed from the femoral neck and head. Next the lateral targeting arm was used to insert the distal locking screw. First a 10-blade scalpel incision was made in the later al aspect of the thigh, captured drill sleeves were then tamped gently to the lateral aspect of the f emoral cortex then the locking screw hole was then drilled, measured and then an 5 mm x 50 mm locking screw was placed to lock the distal aspect of the nail. Next targeting sleeves were then removed. Th e insertion arm was then removed from the nail and final x-rays were obtained in AP and lateral proje ctions. All incisions were then copiously irrigated with sterile normal saline. The proximal gluteus fascia was then closed using interrupted #1 Vicryl, the dermis was closed using buried interrupted 2- 0 Vicryl sutures in all three incisions and the skin was then closed using skin evelio. A sterile co mpressive dressing consisting of Xeroform gauze, sterile 4 x 4's and Tegaderm was applied. The patien t was then awakened and taken to recovery in stable condition. Job ID: [id number]
[2022-01-25] MEDS: PHENYTOIN SODIUM ER 100 MG CAP PO SCH ×2 (10:35→21:37)
[2022-01-25] MEDS: SODIUM CHLORIDE 0.9% 1000ML 1,000 ML IV SCH (10:47)
[2022-01-25] MEDS: ALBUTEROL 0.083% NEBU SOLN 3 ML VIAL NEB PRN ×2 (10:55→22:20)
[2022-01-25] MEDS: oxyCODONE HCL IR 5 MG TAB (IMMEDIATE RELEASE) PO PRN ×2 (11:10→15:56)
[2022-01-25] MEDS: MoRPHine SULFATE 2 MG/ML CARP IV PRN ×2 (12:37→17:14)
--- NOTE | 2022-01-25 14:00 | Hospitalist Progress Note ---
Date of Service January 25, 2022 Assessment & Plan (1) Closed fracture of greater trochanter of right femur: Plan: Status post mechanical fall CT of the right hip showed greater trochanteric fracture Appreciate Ortho input and recommendation Status post open reduction and internal fixation right intertrochanteric fracture on 01/25/2022 Complains pain in the right hip and a little drowsy Will observe for now and recheck labs (2) Fall: Plan: Mechanical fall No cardiac and respiratory symptoms prior to the fall (3) Traumatic brain injury: Plan: History of traumatic brain injury in 1980 Speech impairment and seizure disorder since then (4) Seizures: Plan: Posttraumatic seizure Continue current medications (5) COPD (chronic obstructive pulmonary disease): Plan: Continues to smoke Has chronic cough with emphysematous change on CAT scan Possible infiltration bilaterally could be secondary to aspiration Has been started on intravenous ceftriaxone and doxycycline Will get speech evaluation Has been requiring 5 L since surgery-expected to improve (6) Rash and nonspecific skin eruption: Plan: Bilateral leg rash with evidence of scratching No definite infection noted Could be secondary to bug bites bitee Plan History of repair of trachea Likely cause for the speech impairment We will get a speech evaluation DVT prophylaxis SCDs for now CODE STATUS Full Admission and Anticipated Discharge Date Admission Date: January 23, 2022 Subjective 01/24/2022 The patient was seen and examined in medical floor He complains to have pain in the right hip but denies any other significant symptoms History of significant brain injury in 1980 with seizure disorder and speech impairment Has had a mechanical fall with fracture of the right hip 01/25/2022 He is a status post open reduction and internal fixation of right intertrochanteric fracture on 01/25/2022 Complains pain and remains drowsy from use of anesthetics medication Denies any other significant symptoms Review of Systems Review of Systems: All systems reviewed and are unremarkable except as noted b elow Neurologic: Significant speech impairment secondary to brain injury 1980 Physical Exam Physical Exam: Lying in bed comfortably but a little drowsy likely secondary to effects of anesthetics and pain medication Constitutional: + ill appearing and + thin Eyes: PERRL, conjunctivae normal, anicteric sclerae ENMT: external ear and nose normal, oropharynx normal Neck: trachea midline, no thyromegaly Respiratory: no respiratory distress Auscultation: + diminished lung sounds, + crackles (Minimal bibasilar crackles) and + wheezes (Minimal wheezing anteriorly) Cardiovascular: Rate/Rhythm: regular rate and regular rhythm; not tachycardic Heart Sounds: normal S1 and normal S2; no murmur Extremities: no edema Gastrointestinal (Abdomen): Inspection/Auscultation: normal bowel sounds; abdomen not distended Percussion/Palpation: abdomen soft; abdomen nontender Musculoskeletal: Pain with movement of the right hip Neurologic: Alert, awake and oriented x3. Has speech abnormality secondary to head injury years before Lymphatic: no cervical or axillary lymphadenopathy Results & Data Results & Data ([facility]) Vital Signs (Past 12 Hours) Vital Signs Temp Pulse Pulse Resp BP Pulse Ox O2 Del Method 01/25/22 13:24 36.4 C L 86 18 115/76 96 Nasal Cannula 01/25/22 10:25 Oxymask 01/25/22 12:43 94 Nasal Cannula 01/25/22 12:25 36.4 C L 89 20 116/75 96 Nasal Cannula 01/25/22 11:24 36.1 C L 93 H 20 112/73 92 Nasal Cannula 01/25/22 10:56 90 18 90 Oxymask 01/25/22 10:53 36.4 C L 91 H 16 110/85 90 Oxymask 01/25/22 10:36 91 Oxymask 01/25/22 10:25 36.4 C L 20 107/70 91 Oxymask 01/25/22 10:00 36.2 C L 77 14 125/60 94 Oxymask 01/25/22 09:50 79 17 115/71 94 Oxymask 01/25/22 09:30 95 H 18 113/65 98 Oxymask 01/25/22 10:10 76 17 111/72 93 Oxymask 01/25/22 09:40 92 H 17 117/84 96 Oxymask 01/25/22 09:22 36.4 C L 86 16 174/82 H 96 Oxymask 01/25/22 07:29 92 Nasal Cannula 01/25/22 07:08 36.8 C 81 18 120/80 90 Nasal Cannula O2 Flow Rate 01/25/22 13:24 5 01/25/22 10:25 01/25/22 12:43 5 01/25/22 12:25 4 01/25/22 11:24 5 01/25/22 10:56 5 01/25/22 10:53 5 01/25/22 10:36 5 01/25/22 10:25 4 01/25/22 10:00 3 01/25/22 09:50 3 01/25/22 09:30 10 01/25/22 10:10 3 01/25/22 09:40 6 01/25/22 09:22 10 01/25/22 07:29 2.5 01/25/22 07:08 2.5 Laboratory Results Short CBC 01/25/22 Range/Units 06:16 WBC 9.69 (4.8-10.8) K/ul Hgb 12.5 L (14.0-18.0) g/dl Hct 38.3 L (40.1-51.0) % Plt Count 159 (130-400) K/uL BMP 01/25/22 06:16 Sodium 136 Potassium 4.3 Chloride 103 Carbon Dioxide 28 BUN 17 Creatinine 0.66 Glucose 108 H Calcium 8.9 Medications Administered Current Inpatient Medications Acetaminophen (Acetaminophen 325 Mg Tab) 650 mg PO Q4H PRN PRN Reason: Mild pain/fever Stop: 02/23/22 00:38 Last Admin: 01/25/22 00:36 Dose: 650 mg Albuterol (Albuterol 0.083% Nebu Soln 3 Ml Vial) 2.5 mg NEB Q6R PRN; Protocol PRN Reason: Shortness Of Breath Or Wheezing Stop: 02/23/22 07:57 Last Admin: 01/25/22 10:55 Dose: 2.5 mg Aspirin (Aspirin 81 Mg Ectab) 81 mg PO BID [facility] Stop: 02/24/22 20:59 Ceftriaxone Sodium 1,000 mg/ (Dextrose) 60 mls @ 100 mls/hr IV Q24H RAFAEL; Protocol Stop: 01/31/22 20:59 Last Infusion: 01/24/22 21:33 Dose: Infused Doxycycline Hyclate 100 mg/ (Dextrose) 110 mls @ 50 mls/hr IV Q12H RAFAEL Stop: 01/31/22 00:59 Last Admin: 01/25/22 12:25 Dose: 50 mls/hr Sodium Chloride (Nss 1000ml) 1,000 mls @ 80 mls/hr IV .[id number] [facility] Stop: 01/26/22 11:29 Last Admin: 01/25/22 10:47 Dose: 80 mls/hr Morphine Sulfate (Morphine Sulfate 2 Mg/Ml Carp) 2 mg IV Q4H PRN PRN Reason: Pain Stop: 02/08/22 11:18 Last Admin: 01/25/22 12:37 Dose: 2 mg Ondansetron HCl (Ondansetron Inj 2 Mg/Ml 2 Ml Vial) 4 mg IV Q6H PRN PRN Reason: Nausea Stop: 02/23/22 00:38 Oxycodone HCl (Oxycodone Hcl Ir 5 Mg Tab (Immediate Release)) 5 - 10 mg PO Q4H PRN PRN Reason: Pain Stop: 02/08/22 10:29 Last Admin: 01/25/22 11:10 Dose: 10 mg Phenytoin Sodium (Phenytoin Sodium Er 100 Mg Cap) 100 mg PO BID RAFAEL Stop: 02/23/22 00:38 Last Admin: 01/25/22 10:35 Dose: Not Given Polyethylene Glycol (Polyethylene (Miralax) 17 Gm Pack) 17 gm PO DAILY PRN PRN Reason: Constipation Stop: 02/23/22 00:38 Triamcinolone Acetonide (Triamcinolone Acet 0.1% Oint 15 Gm Tube) 1 appln EXT BID PRN PRN Reason: Itching Stop: 02/23/22 18:58 (1) Closed fracture of greater trochanter of right femur Encounter type: initial encounter Fracture alignment: displaced Qualified Code(s): S72.111A - Displaced fracture of greater trochanter of right femur, initial encounter for closed fracture (2) Fall Encounter type: initial encounter Qualified Code(s): W19.XXXA - Unspecified fall, initial encounter
[2022-01-25] MEDS: NICOTINE 14 MG/24 HR PATCH TD SCH (15:56)
[2022-01-25] MEDS: guaiFENesin 600 MG TABCR PO SCH (21:37)
[2022-01-25] MEDS: cefTRIAXone SODIUM 1,000 MG in DEXTROSE 5% 50 ML IV SCH (21:38)
[2022-01-25] MEDS: ASPIRIN 81 MG ECTAB PO SCH (21:38)
[2022-01-26] MEDS: DOXYCYCLINE HYCLATE 100 MG in DEXTROSE 5% 100 ML IV SCH ×2 (00:23→12:19)
[2022-01-26] MEDS: SODIUM CHLORIDE 0.9% 1000ML 1,000 ML IV SCH (04:06)
[2022-01-26 08:33] LABS: Basophils # (auto) 0.02 K/uL (0-0.2); Basophils % (auto) 0.2 %; Eosinophils # (auto) 0.11 K/uL (0-0.50); Eosinophils % (auto) 0.8 %; Hemoglobin 11.3 g/dl (14.0-18.0); Immature Granulocytes # (auto) 0.04 K/uL (0.00-0.02); Immature Granulocytes % (auto) 0.3 %; Lymphocytes # (auto) 1.07 K/uL (1.2-3.4); Lymphocytes % (auto) 8.1 %; Mean Corpuscular Hemoglobin 31.7 pg (25.0-34.0); Mean Corpuscular Hgb Conc 33.2 g/dL (32.0-36.0); Mean Corpuscular Volume 95.5 fL (80.0-100.0); Mean Platelet Volume 9.6 fL (9.4-12.4); Monocytes # (auto) 1.21 K/uL (0.24-0.82); Monocytes % (auto) 9.1 %; Neutrophils # (auto) 10.82 K/uL (1.4-6.5); Neutrophils % (auto) 81.5 %; Platelet Count 159 K/uL (130-400); RDW Coefficient of Variation 12.8 % (11.5-14.5); RDW Standard Deviation 44.6 fL (36.4-46.3); Red Blood Count 3.56 M/uL (4.63-6.08); White Blood Count 13.27 K/ul (4.8-10.8)
[2022-01-26] MEDS: oxyCODONE HCL IR 5 MG TAB (IMMEDIATE RELEASE) PO PRN ×2 (08:42→14:14)
[2022-01-26] MEDS: NICOTINE 14 MG/24 HR PATCH TD SCH (08:43)
[2022-01-26] MEDS: ASPIRIN 81 MG ECTAB PO SCH ×2 (08:44→20:24)
[2022-01-26] MEDS: PHENYTOIN SODIUM ER 100 MG CAP PO SCH ×2 (08:44→20:25)
[2022-01-26] MEDS: guaiFENesin 600 MG TABCR PO SCH ×2 (08:44→20:24)
[2022-01-26 09:00] LABS: BUN Creatinine Ratio 24.1 (10-20); Calcium 8.3 mg/dl (8.5-10.1); Creatinine Clr Calc Pharmacy 63.8 ml/min; Est GFR (African American) 107.7 ml/min; Est GFR (Non-African American) 92.9 ml/min; Potassium 4.3 mmol/L (3.5-5.1)
--- NOTE | 2022-01-26 09:39 | Electrocardiogram Report ---
Test Reason : Blood Pressure : / mmHG Vent. Rate : 083 BPM Atrial Rate : 083 BPM P-R Int : 152 ms QRS Dur : 092 ms QT Int : 388 ms P-R-T Axes : 073 050 069 degrees QTc Int : 455 ms Normal sinus rhythm Normal ECG When compared with ECG of 23-JAN-2022 16:49, No significant change was found Confirmed by Rob Cortes ([id number]) on 01/26/2022 9:39:07 AM Referred By: REFERRED SELF Confirmed By:Rob Cortes
[2022-01-26] MEDS: MoRPHine SULFATE 2 MG/ML CARP IV PRN ×3 (12:18→17:31)
--- NOTE | 2022-01-26 12:45 | Orthopedic Progress Note ---
Date of Service January 26, 2022 Assessment & Plan (1) Fracture, intertrochanteric, right femur: Plan: POD #1 s/p right troch nail WBAT RLE with walker or crutches. PT/OT DVT prophylaxis--ASA 81 mg BID x 4 weeks, TEDs, SCDs. D/C planning--probably will require a SNF vs. rehab. Admission and Anticipated Discharge Date Admission Date: January 23, 2022 Subjective Right hip pain is controlled. States the hip is still painful this morning. No other complaints. Physical Exam Constitutional: WD/WN, vitals as above no acute distress (sitting comfortably in bed.) Musculoskeletal: Hip: + surgical incision (right lateral hip dressings C/D/I. Thigh is soft.); no skin erythema and no ecchymosis Skin: no rashes, warm and dry Trauma: no evidence of skin trauma Neurologic: normal touch/pain/proprioception (Active dorsiflexion/plantarflexion intact RLE) Psychiatric: A+Ox3, euthymic affect Speech: normal rate/rhythm/volume of speech Results & Data ([facility]) Vital Signs (Past 12 Hours) Vital Signs Temp Pulse Resp BP Pulse Ox O2 Del Method O2 Flow Rate 01/26/22 07:25 36.8 C 95 H 16 105/69 92 Nasal Cannula 5 01/26/22 03:03 37 C 99 H 14 108/76 91 Nasal Cannula 5
[2022-01-26] MEDS: ACETAMINOPHEN 325 MG TAB PO PRN (14:14)
--- NOTE | 2022-01-26 15:57 | Hospitalist Progress Note ---
Date of Service January 26, 2022 Assessment & Plan (1) Closed fracture of greater trochanter of right femur: Plan: Status post mechanical fall CT of the right hip showed greater trochanteric fracture Appreciate Ortho input and recommendation Status post open reduction and internal fixation right intertrochanteric fracture on 01/25/2022 Complains pain in the right hip and a little drowsy Will observe for now and recheck labs CBC and PRP unremarkable except sodium was noted to be 131 (2) Fall: Plan: Mechanical fall No cardiac and respiratory symptoms prior to the fall (3) Traumatic brain injury: Plan: History of traumatic brain injury in 1980 Speech impairment and seizure disorder since then No acute findings (4) Seizures: Plan: Posttraumatic seizure Continue current medications (5) COPD (chronic obstructive pulmonary disease): Plan: Continues to smoke Has chronic cough with emphysematous change on CAT scan Possible infiltration bilaterally could be secondary to aspiration Has been started on intravenous ceftriaxone and doxycycline Will get speech evaluation Has been requiring 5 L since surgery-expected to improve Cough is improved (6) Rash and nonspecific skin eruption: Plan: Bilateral leg rash with evidence of scratching No definite infection noted Could be secondary to bug bites bitee Plan History of repair of trachea Likely cause for the speech impairment We will get a speech evaluation-speech evaluation is not needed due to chronic speech impairment without any deterioration in the swallowing is fine DVT prophylaxis SCDs for now CODE STATUS Full Admission and Anticipated Discharge Date Admission Date: January 23, 2022 Subjective 01/24/2022 The patient was seen and examined in medical floor He complains to have pain in the right hip but denies any other significant symptoms History of significant brain injury in 1980 with seizure disorder and speech impairment Has had a mechanical fall with fracture of the right hip 01/25/2022 He is a status post open reduction and internal fixation of right intertrochanteric fracture on 01/25/2022 Complains pain and remains drowsy from use of anesthetics medication Denies any other significant symptoms 01/26/2022 The patient was seen and examined in medical floor He complains to have a lot of pain in the lateral right hip at the site of operation Denies any shortness of breath and the cough seems to be improved No chest pain and/or palpitation Review of Systems Review of Systems: All systems reviewed and are unremarkable except as noted below Neurologic: Significant speech impairment secondary to brain injury 1980 Physical Exam Physical Exam: Lying in bed comfortably but a little drowsy likely secondary to effects of anesthetics and pain medication Constitutional: + ill appearing and + thin Eyes: PERRL, conjunctivae normal, anicteric sclerae ENMT: external ear and nose normal, oropharynx normal Neck: trachea midline, no thyromegaly Respiratory: no respiratory distress Auscultation: + diminished lung sounds, + crackles (Minimal bibasilar crackles) and + wheezes (Minimal wheezing anteriorly) Cardiovascular: Rate/Rhythm: regular rate and regular rhythm; not tachycardic Heart Sounds: normal S1 and normal S2; no murmur Extremities: no edema Gastrointestinal (Abdomen): Inspection/Auscultation: normal bowel sounds; abdomen not distended Percussion/Palpation: abdomen soft; abdomen nontender Musculoskeletal: Any movement of the left lower extremity produces much pain in the left hip Neurologic: normal touch/pain/proprioception and moves all extremities; no focal motor deficits Speech / Cognition: + abnormal speech (Secondary to traumatic brain injury years before) Lymphatic: no cervical or axillary lymphadenopathy Results & Data Results & Data ([facility]) Vital Signs (Past 12 Hours) Vital Signs Temp Pulse Resp BP Pulse Ox O2 Del Method O2 Flow Rate 01/26/22 15:16 37.3 C 106 H 16 112/73 94 Nasal Cannula 5 01/26/22 07:25 36.8 C 95 H 16 105/69 92 Nasal Cannula 5 Laboratory Results Short CBC 01/26/22 Range/Units 08:17 WBC 13.27 H (4.8-10.8) K/ul Hgb 11.3 L (14.0-18.0) g/dl Hct 34.0 L (40.1-51.0) % Plt Count 159 (130-400) K/uL BMP 01/26/22 08:17 Sodium 131 L Potassium 4.3 Chloride 98 Carbon Dioxide 28 BUN 19 Creatinine 0.79 Glucose 111 H Calcium 8.3 L Medications Administered Current Inpatient Medications Acetaminophen (Acetaminophen 325 Mg Tab) 650 mg PO Q4H PRN PRN Reason: Mild pain/fever Stop: 02/23/22 00:38 Last Admin: 01/26/22 14:14 Dose: 650 mg Albuterol (Albuterol 0.083% Nebu Soln 3 Ml Vial) 2.5 mg NEB Q6R PRN; Protocol PRN Reason: Shortness Of Breath Or Wheezing Stop: 02/23/22 07:57 Last Admin: 01/25/22 22:20 Dose: 2.5 mg Aspirin (Aspirin 81 Mg Ectab) 81 mg PO BID [facility] Stop: 02/24/22 20:59 Last Admin: 01/26/22 08:44 Dose: 81 mg Doxycycline Hyclate (Doxycycline Hyclate 100 Mg Cap) 100 mg PO BID [facility] Stop: 01/30/22 23:59 Guaifenesin (Guaifenesin 600 Mg Tabcr) 600 mg PO Q12 [facility] Stop: 02/24/22 20:59 Last Admin: 01/26/22 08:44 Dose: 600 mg Ceftriaxone Sodium 1,000 mg/ (Dextrose) 60 mls @ 100 mls/hr IV Q24H [facility]; Protocol Stop: 01/31/22 20:59 Last Infusion: 01/25/22 22:14 Dose: Infused Miscellaneous (Remove Nicoderm Patch) 1 each N/A DAILY@0859 [facility] Stop: 02/25/22 08:58 Last Admin: 01/26/22 08:00 Dose: 1 each Morphine Sulfate (Morphine Sulfate 2 Mg/Ml Carp) 4 mg IV Q4H PRN PRN Reason: Pain Stop: 02/08/22 11:18 Last Admin: 01/26/22 13:13 Dose: 4 mg Nicotine (Nicotine 14 Mg/24 Hr Patch) 14 mg TD QAM [facility] Stop: 02/24/22 14:59 Last Admin: 01/26/22 08:43 Dose: 14 mg Ondansetron HCl (Ondansetron Inj 2 Mg/Ml 2 Ml Vial) 4 mg IV Q6H PRN PRN Reason: Nausea Stop: 02/23/22 00:38 Oxycodone HCl (Oxycodone Hcl Ir 5 Mg Tab (Immediate Release)) 5 - 10 mg PO Q4H PRN PRN Reason: Pain Stop: 02/08/22 10:29 Last Admin: 01/26/22 14:14 Dose: 10 mg Phenytoin Sodium (Phenytoin Sodium Er 100 Mg Cap) 100 mg PO BID [facility] Stop: 02/23/22 00:38 Last Admin: 01/26/22 08:44 Dose: 100 mg Polyethylene Glycol (Polyethylene (Miralax) 17 Gm Pack) 17 gm PO DAILY PRN PRN Reason: Constipation Stop: 02/23/22 00:38 Triamcinolone Acetonide (Triamcinolone Acet 0.1% Oint 15 Gm Tube) 1 appln EXT BID PRN PRN Reason: Itching Stop: 02/23/22 18:58 Last Admin: 01/25/22 17:26 Dose: 1 appln (1) Closed fracture of greater trochanter of right femur Encounter type: initial encounter Fracture alignment: displaced Qualified Code(s): S72.111A - Displaced fracture of greater trochanter of right femur, initial encounter for closed fracture (2) Fall Encounter type: initial encounter Qualified Code(s): W19.XXXA - Unspecified fall, initial encounter
[2022-01-26] MEDS: ALBUTEROL 0.083% NEBU SOLN 3 ML VIAL NEB PRN (18:22)
[2022-01-26] MEDS: cefTRIAXone SODIUM 1,000 MG in DEXTROSE 5% 50 ML IV SCH (20:25)
[2022-01-26] MEDS: DOXYCYCLINE HYCLATE 100 MG CAP PO SCH (20:25)
[2022-01-27] MEDS: ALBUTEROL 0.083% NEBU SOLN 3 ML VIAL NEB PRN (07:10)
[2022-01-27] MEDS: PHENYTOIN SODIUM ER 100 MG CAP PO SCH ×2 (07:33→21:29)
[2022-01-27] MEDS: oxyCODONE HCL IR 5 MG TAB (IMMEDIATE RELEASE) PO PRN (07:33)
[2022-01-27] MEDS: ASPIRIN 81 MG ECTAB PO SCH ×2 (07:34→21:39)
[2022-01-27] MEDS: NICOTINE 14 MG/24 HR PATCH TD SCH (07:34)
[2022-01-27] MEDS: guaiFENesin 600 MG TABCR PO SCH ×2 (07:34→21:39)
[2022-01-27] MEDS: DOXYCYCLINE HYCLATE 100 MG CAP PO SCH ×2 (07:34→21:39)
[2022-01-27] MEDS: methylPREDNISolone 40 MG in SYRINGE 0 ML IV SCH ×2 (11:06→21:39)
--- NOTE | 2022-01-27 11:24 | Hospitalist Progress Note ---
Date of Service January 27, 2022 Assessment & Plan (1) Closed fracture of greater trochanter of right femur: Plan: Status post mechanical fall CT of the right hip showed greater trochanteric fracture Appreciate Ortho input and recommendation Status post open reduction and internal fixation right intertrochanteric fracture on 01/25/2022 Complains pain in the right hip and a little drowsy Will observe for now and recheck labs CBC and PRP unremarkable except sodium was noted to be 131 Remains weak and lethargic We will continue PT and OT He will need very small dose of narcotic pain medications to control pain (2) Fall: Plan: Mechanical fall No cardiac and respiratory symptoms prior to the fall (3) Traumatic brain injury: Plan: History of traumatic brain injury in 1980 Speech impairment and seizure disorder since then No acute findings-remains stable (4) Seizures: Plan: Posttraumatic seizure Continue current medications (5) COPD (chronic obstructive pulmonary disease): Plan: Continues to smoke Has chronic cough with emphysematous change on CAT scan Possible infiltration bilaterally could be secondary to aspiration Has been started on intravenous ceftriaxone and doxycycline Will get speech evaluation Has been requiring 5 L since surgery-expected to improve Cough is improved We will start a small dose of Solu-Medrol to treat possible exacerbation (6) Rash and nonspecific skin eruption: Plan: Bilateral leg rash with evidence of scratching No definite infection noted Could be secondary to bug bites bitee Plan History of repair of trachea Likely cause for the speech impairment We will get a speech evaluation-speech evaluation is not needed due to chronic speech impairment without any deterioration in the swallowing is fine DVT prophylaxis SCDs for now CODE STATUS Full Admission and Anticipated Discharge Date Admission Date: January 23, 2022 Subjective 01/24/2022 The patient was seen and examined in medical floor He complains to have pain in the right hip but denies any other significant symptoms History of significant brain injury in 1980 with seizure disorder and speech impairment Has had a mechanical fall with fracture of the right hip 01/25/2022 He is a status post open reduction and internal fixation of right intertrochanteric fracture on 01/25/2022 Complains pain and remains drowsy from use of anesthetics medication Denies any other significant symptoms 01/26/2022 The patient was seen and examined in medical floor He complains to have a lot of pain in the lateral right hip at the site of operation Denies any shortness of breath and the cough seems to be improved No chest pain and/or palpitation 01/27/2022 The patient was seen and examined in medical floor He has been feeling well today Denies any significant pain but has more weakness Denies any increasing shortness of breath but has been requiring 4 to 5 L of oxygen to maintain saturation No fever and or chills Review of Systems Review of Systems: All systems reviewed and are unremarkable except as noted below Neurologic: Significant speech impairment secondary to brain injury 1981 Physical Exam Physical Exam: Lying in bed comfortably but a little drowsy likely secondary to effects of anesthetics and pain medication Constitutional: + ill appearing and + thin Eyes: PERRL, conjunctivae normal, anicteric sclerae ENMT: external ear and nose normal, oropharynx normal Neck: trachea midline, no thyromegaly Respiratory: no respiratory distress Auscultation: + diminished lung sounds, + crackles (Minimal bibasilar crackles) and + wheezes (Minimal wheezing anteriorly) Cardiovascular: Rate/Rhythm: regular rate and regular rhythm; not tachycardic Heart Sounds: normal S1 and normal S2; no murmur Extremities: no edema Gastrointestinal (Abdomen): Inspection/Auscultation: normal bowel sounds; abdomen not distended Percussion/Palpation: abdomen soft; abdomen nontender Musculoskeletal: Has hip pain with movement of the right lower extremity Neurologic: normal touch/pain/proprioception and moves all extremities; no focal motor deficits Speech / Cognition: + abnormal speech (Secondary to traumatic brain injury years before) Lymphatic: no cervical or axillary lymphadenopathy Results & Data Results & Data ([facility]) Vital Signs (Past 12 Hours) Vital Signs Temp Pulse Resp BP Pulse Ox O2 Del Method O2 Flow Rate 01/27/22 07:15 Nasal Cannula 4 01/27/22 07:19 37.1 C 92 H 20 109/71 96 01/27/22 07:10 95 H 20 92 Nasal Cannula 4 Medications Administered Current Inpatient Medications Acetaminophen (Acetaminophen 325 Mg Tab) 650 mg PO Q4H PRN PRN Reason: Mild pain/fever Stop: 02/23/22 00:38 Last Admin: 01/26/22 14:14 Dose: 650 mg Albuterol (Albuterol 0.083% Nebu Soln 3 Ml Vial) 2.5 mg NEB Q6R PRN; Protocol PRN Reason: Shortness Of Breath Or Wheezing Stop: 02/23/22 07:57 Last Admin: 01/27/22 07:10 Dose: 2.5 mg Aspirin (Aspirin 81 Mg Ectab) 81 mg PO BID [facility] Stop: 02/24/22 20:59 Last Admin: 01/27/22 07:34 Dose: 81 mg Doxycycline Hyclate (Doxycycline Hyclate 100 Mg Cap) 100 mg PO BID [facility] Stop: 01/30/22 23:59 Last Admin: 01/27/22 07:34 Dose: 100 mg Guaifenesin (Guaifenesin 600 Mg Tabcr) 600 mg PO Q12 [facility] Stop: 02/24/22 20:59 Last Admin: 01/27/22 07:34 Dose: 600 mg Ceftriaxone Sodium 1,000 mg/ (Dextrose) 60 mls @ 100 mls/hr IV Q24H [facility]; Protocol Stop: 01/31/22 20:59 Last Infusion: 01/26/22 21:01 Dose: Infused Methylprednisolone 40 mg/ (Syringe) 0.64 mls @ 1.5 mls/min IV BID [facility] Stop: 02/26/22 10:29 Last Admin: 01/27/22 11:06 Dose: 1.5 mls/min Miscellaneous (Remove Nicoderm Patch) 1 each N/A DAILY@0859 [facility] Stop: 02/25/22 08:58 Last Admin: 01/27/22 07:34 Dose: 1 each Morphine Sulfate (Morphine Sulfate 2 Mg/Ml Carp) 4 mg IV Q4H PRN PRN Reason: Pain Stop: 02/08/22 11:18 Last Admin: 01/26/22 17:31 Dose: 4 mg Nicotine (Nicotine 14 Mg/24 Hr Patch) 14 mg TD QAM [facility] Stop: 02/24/22 14:59 Last Admin: 01/27/22 07:34 Dose: 14 mg Ondansetron HCl (Ondansetron Inj 2 Mg/Ml 2 Ml Vial) 4 mg IV Q6H PRN PRN Reason: Nausea Stop: 02/23/22 00:38 Oxycodone HCl (Oxycodone Hcl Ir 5 Mg Tab (Immediate Release)) 5 - 10 mg PO Q4H PRN PRN Reason: Pain Stop: 02/08/22 10:29 Last Admin: 01/27/22 07:33 Dose: 10 mg Phenytoin Sodium (Phenytoin Sodium Er 100 Mg Cap) 100 mg PO BID [facility] Stop: 02/23/22 00:38 Last Admin: 01/27/22 07:33 Dose: 100 mg Polyethylene Glycol (Polyethylene (Miralax) 17 Gm Pack) 17 gm PO DAILY PRN PRN Reason: Constipation Stop: 02/23/22 00:38 Triamcinolone Acetonide (Triamcinolone Acet 0.1% Oint 15 Gm Tube) 1 appln EXT BID PRN PRN Reason: Itching Stop: 02/23/22 18:58 Last Admin: 01/25/22 17:26 Dose: 1 appln (1) Closed fracture of greater trochanter of right femur Encounter type: initial encounter Fracture alignment: displaced Qualified Code(s): S72.111A - Displaced fracture of greater trochanter of right femur, initial encounter for closed fracture (2) Fall Encounter type: initial encounter Qualified Code(s): W19.XXXA - Unspecified fall, initial encounter
[2022-01-27] MEDS ORDERED: ERGOCALCIFEROL 50,000 UNITS 1250 MCG CAP PO SCH (11:30)
[2022-01-27] MEDS: ACETAMINOPHEN 325 MG TAB PO PRN (12:36)
--- NOTE | 2022-01-27 14:32 | Orthopedic Progress Note ---
Date of Service January 27, 2022 Assessment & Plan (1) Fracture, intertrochanteric, right femur: Plan: POD #2 s/p right troch nail WBAT RLE with walker or crutches. PT/OT DVT prophylaxis--ASA 81 mg BID x 4 weeks, TEDs, SCDs. D/C planning--probably will require a SNF vs. rehab. Ortho will sign off at this time. Instructions placed in chart. Please call with any questions. Admission and Anticipated Discharge Date Admission Date: January 23, 2022 Subjective POD 2 Pt getting bathed by nursing staff. No complaints. Pain controlled Physical Exam Physical Exam: Dressings C/D/I. Thigh soft. Calves soft,NT. NV intact. Results & Data ([facility]) Vital Signs (Past 12 Hours) Vital Signs Temp Pulse Resp BP Pulse Ox O2 Del Method O2 Flow Rate 01/27/22 07:15 Nasal Cannula 4 01/27/22 07:19 37.1 C 92 H 20 109/71 96 01/27/22 07:10 95 H 20 92 Nasal Cannula 4
[2022-01-27] MEDS: cefTRIAXone SODIUM 1,000 MG in DEXTROSE 5% 50 ML IV SCH (21:29)
[2022-01-28 07:54] LABS: Basophils # (auto) 0.02 K/uL (0-0.2); Basophils % (auto) 0.2 %; Eosinophils % (auto) 2.2 %; Hematocrit (blood only) 34.7 % (40.1-51.0); Hemoglobin 11.5 g/dl (14.0-18.0); Immature Granulocytes # (auto) 0.05 K/uL (0.00-0.02); Immature Granulocytes % (auto) 0.6 %; Lymphocytes % (auto) 17.7 %; Mean Corpuscular Hgb Conc 33.1 g/dL (32.0-36.0); Mean Corpuscular Volume 96.7 fL (80.0-100.0); Mean Platelet Volume 9.8 fL (9.4-12.4); Monocytes # (auto) 0.98 K/uL (0.24-0.82); Monocytes % (auto) 10.9 %; Neutrophils # (auto) 6.17 K/uL (1.4-6.5); Neutrophils % (auto) 68.4 %; Platelet Count 221 K/uL (130-400); RDW Coefficient of Variation 12.7 % (11.5-14.5); RDW Standard Deviation 45.5 fL (36.4-46.3); Red Blood Count 3.59 M/uL (4.63-6.08); White Blood Count 9.02 K/ul (4.8-10.8)
[2022-01-28 08:16] LABS: BUN Creatinine Ratio 43.1 (10-20); Creatinine Clr Calc Pharmacy 77.5 ml/min; Est GFR (African American) 116.7 ml/min; Est GFR (Non-African American) 100.7 ml/min; Potassium 4.2 mmol/L (3.5-5.1)
[2022-01-28] MEDS: ASPIRIN 81 MG ECTAB PO SCH ×2 (08:19→20:26)
[2022-01-28] MEDS: PHENYTOIN SODIUM ER 100 MG CAP PO SCH ×2 (08:19→20:27)
[2022-01-28] MEDS: methylPREDNISolone 40 MG in SYRINGE 0 ML IV SCH ×2 (08:20→20:26)
[2022-01-28] MEDS: guaiFENesin 600 MG TABCR PO SCH ×2 (08:20→20:26)
[2022-01-28] MEDS: DOXYCYCLINE HYCLATE 100 MG CAP PO SCH ×2 (08:20→20:28)
[2022-01-28] MEDS: NICOTINE 14 MG/24 HR PATCH TD SCH (08:21)
--- NOTE | 2022-01-28 12:48 | Hospitalist Progress Note ---
Date of Service January 28, 2022 Assessment & Plan (1) Closed fracture of greater trochanter of right femur: Plan: Status post mechanical fall CT of the right hip showed greater trochanteric fracture Appreciate Ortho input and recommendation Status post open reduction and internal fixation right intertrochanteric fracture on 01/25/2022, POD # 3 continue PT/OT plan to go to [facility] (2) Fall: Plan: Mechanical fall No cardiac and respiratory symptoms prior to the fall (3) Traumatic brain injury: Plan: History of traumatic brain injury in 1981 Speech impairment and seizure disorder since then No acute findings-remains stable (4) Seizures: Plan: Posttraumatic seizure Continue current medications (5) COPD (chronic obstructive pulmonary disease): Plan: Hypoxia Continues to smoke Has chronic cough with emphysematous change on CAT scan Possible infiltration bilaterally could be secondary to aspiration Has been started on intravenous ceftriaxone Day #5 and doxycycline Day 3 Oxygen requirement improving, down to 3 liters Cough is improved On IV solumedrol, day 2, consider reducing to daily starting tomorrow then complete oral pred lungs sound clear (6) Rash and nonspecific skin eruption: Plan: Bilateral leg rash with evidence of scratching No definite infection noted place on steroid cream x 1 week Plan DVT prophylaxis SCDs for now, ASA BID per ortho Dispo: Plan to discharge to [facility] when able CODE STATUS Full pt was seen and examined in collaboration with Dr. Schaffer, please see addendum Admission and Anticipated Discharge Date Admission Date: January 23, 2022 Supervising Physician Co-Signing Physician Notes Patient seen and examined at bedside as a follow-up of closed fracture of greater trochanter of right femur status post repair on 01/25/2022, after mechanical fall and history of traumatic brain injury [speech impairment and seizure disorder since then], and possible copd exacerbation vs pneumonia. Patient was lying in bed, on 3 L nasal cannula oxygen, NAD, was lying across the bed diagonally. Per RN, no new acute events overnight. ROS not obtainable due to cognition status of the patient. Upon examination: Patient ill-appearing, speech impairment noted, overlying diagnoses across the plate, sleepy/easily arousable, confused, heart lungs and abdomen examination within normal limit, no BLE edema. No open skin wound noted. I have seen and examined the patient and have discussed the case with the provider above. I agree with the assessment and plan as stated. Subjective Pt was seen and examined in room 350-2. Follow up hip fracture and possible PNA. He denies any pain but states he just wants, "rest." He denies f/c/s, chest pain, sob, cough, n/v/d, abd pain. ROS limited/unreliable given pt underlying speech impairment and cognition. Review of Systems Review of Systems: All systems reviewed & are unremarkable except as noted in HPI & below Physical Exam Physical Exam: Gen: Elderly appearing male, lying sideways in bed, ill appearing, thin, NAD, A&O x3 basics, speech impairment HEENT: Normocephalic, atraumatic, conjunctivae moist, sclerae anicteric, mucous membranes moist. Lung: Clear to Auscultation bilaterally, no wheezes/rales/rhonchi Heart: Regular rate, regular rhythm, no murmurs, rubs, or gallops Abdomen: Soft, NT, ND +BS x 4 Extremities: No edema, R hip dressing cdi Skin: Warm, no rash, negative turgor. Results & Data Results & Data ([facility]) Vital Signs (Past 12 Hours) Vital Signs Temp Pulse Resp BP Pulse Ox O2 Del Method O2 Flow Rate 01/28/22 09:02 Nasal Cannula 3 01/28/22 06:21 36.4 C L 78 17 104/68 94 Nasal Cannula 3 Laboratory Results Short CBC 01/28/22 Range/Units 07:14 WBC 9.02 (4.8-10.8) K/ul Hgb 11.5 L (14.0-18.0) g/dl Hct 34.7 L (40.1-51.0) % Plt Count 221 (130-400) K/uL BMP 01/28/22 07:14 Sodium 136 Potassium 4.2 Chloride 101 Carbon Dioxide 30 BUN 28 H Creatinine 0.65 Glucose 114 H Calcium 9.0 Medications Administered Current Inpatient Medications Acetaminophen (Acetaminophen 325 Mg Tab) 650 mg PO Q4H PRN PRN Reason: Mild pain/fever Stop: 02/23/22 00:38 Last Admin: 01/27/22 12:36 Dose: 650 mg Albuterol (Albuterol 0.083% Nebu Soln 3 Ml Vial) 2.5 mg NEB Q6R PRN; Protocol PRN Reason: Shortness Of Breath Or Wheezing Stop: 02/23/22 07:57 Last Admin: 01/27/22 07:10 Dose: 2.5 mg Aspirin (Aspirin 81 Mg Ectab) 81 mg PO BID [facility] Stop: 02/24/22 20:59 Last Admin: 01/28/22 08:19 Dose: 81 mg Doxycycline Hyclate (Doxycycline Hyclate 100 Mg Cap) 100 mg PO BID [facility] Stop: 01/30/22 23:59 Last Admin: 01/28/22 08:20 Dose: 100 mg Ergocalciferol (Ergocalciferol 50,000 Units 1250 Mcg Cap) 50,000 units PO Q7D [facility] Stop: 02/26/22 11:29 Last Admin: 01/27/22 12:34 Dose: 50,000 units Guaifenesin (Guaifenesin 600 Mg Tabcr) 600 mg PO Q12 [facility] Stop: 02/24/22 20:59 Last Admin: 01/28/22 08:20 Dose: 600 mg Ceftriaxone Sodium 1,000 mg/ (Dextrose) 60 mls @ 100 mls/hr IV Q24H [facility]; Protocol Stop: 01/31/22 20:59 Last Infusion: 01/27/22 22:05 Dose: Infused Methylprednisolone 40 mg/ (Syringe) 0.64 mls @ 1.5 mls/min IV BID [facility] Stop: 02/26/22 10:29 Last Admin: 01/28/22 08:20 Dose: 1.5 mls/min Miscellaneous (Remove Nicoderm Patch) 1 each N/A DAILY@0859 [facility] Stop: 02/25/22 08:58 Last Admin: 01/28/22 08:39 Dose: 1 each Morphine Sulfate (Morphine Sulfate 2 Mg/Ml Carp) 4 mg IV Q4H PRN PRN Reason: Pain Stop: 02/08/22 11:18 Last Admin: 01/26/22 17:31 Dose: 4 mg Nicotine (Nicotine 14 Mg/24 Hr Patch) 14 mg TD QAM [facility] Stop: 02/24/22 14:59 Last Admin: 01/28/22 08:21 Dose: 14 mg Ondansetron HCl (Ondansetron Inj 2 Mg/Ml 2 Ml Vial) 4 mg IV Q6H PRN PRN Reason: Nausea Stop: 02/23/22 00:38 Oxycodone HCl (Oxycodone Hcl Ir 5 Mg Tab (Immediate Release)) 5 - 10 mg PO Q4H PRN PRN Reason: Pain Stop: 02/08/22 10:29 Last Admin: 01/27/22 07:33 Dose: 10 mg Phenytoin Sodium (Phenytoin Sodium Er 100 Mg Cap) 100 mg PO BID [facility] Stop: 02/23/22 00:38 Last Admin: 01/28/22 08:19 Dose: 100 mg Polyethylene Glycol (Polyethylene (Miralax) 17 Gm Pack) 17 gm PO DAILY PRN PRN Reason: Constipation Stop: 02/23/22 00:38 Triamcinolone Acetonide (Triamcinolone Acet 0.1% Oint 15 Gm Tube) 1 appln EXT BID PRN PRN Reason: Itching Stop: 02/23/22 18:58 Last Admin: 01/25/22 17:26 Dose: 1 appln (1) Closed fracture of greater trochanter of right femur Encounter type: initial encounter Fracture alignment: displaced Qualified Code(s): S72.111A - Displaced fracture of greater trochanter of right femur, initial encounter for closed fracture (2) Fall Encounter type: initial encounter Qualified Code(s): W19.XXXA - Unspecified fall, initial encounter
[2022-01-28] MEDS: cefTRIAXone SODIUM 1,000 MG in DEXTROSE 5% 50 ML IV SCH (20:26)
[2022-01-28] MEDS: TRIAMCINOLONE ACET 0.1% OINT 15 GM TUBE EXT SCH (20:28)
[2022-01-28] MEDS: oxyCODONE HCL IR 5 MG TAB (IMMEDIATE RELEASE) PO PRN (23:00)
[2022-01-29 07:09] VITALS: BP 139/80; TEMP 97.5
[2022-01-29] MEDS: NICOTINE 14 MG/24 HR PATCH TD SCH (07:28)
[2022-01-29] MEDS: PHENYTOIN SODIUM ER 100 MG CAP PO SCH (07:29)
[2022-01-29] MEDS: ASPIRIN 81 MG ECTAB PO SCH (07:29)
[2022-01-29] MEDS: methylPREDNISolone 40 MG in SYRINGE 0 ML IV SCH (07:29)
[2022-01-29] MEDS: guaiFENesin 600 MG TABCR PO SCH (07:30)
[2022-01-29] MEDS: DOXYCYCLINE HYCLATE 100 MG CAP PO SCH (07:30)
[2022-01-29] MEDS: TRIAMCINOLONE ACET 0.1% OINT 15 GM TUBE EXT SCH (07:31)
[2022-01-29] MEDS ORDERED: methylPREDNISolone 4 MG TAB, 6 DAY TAPER PO SCH (11:45)
[2022-01-29] MEDS ORDERED: methylPREDNISolone 4 MG TAB PO SCH ×2 (13:00→21:00)
[2022-01-29] MEDS: oxyCODONE HCL IR 5 MG TAB (IMMEDIATE RELEASE) PO PRN (13:08)
[2022-01-29 14:33] VITALS: PULSE 80
[2022-01-29 14:39] VITALS: O2SAT 93
--- NOTE | 2022-01-29 15:13 | Discharge Summary ---
Date of Service January 29, 2022 Admission HPI Per Admitting Provider A 66-year-old male with past medical history significant for emphysema, ongoing tobacco abuse, history of head injury, repair of the windpipe, traumatic brain injury long time back, as per the patient 1980, history of posttraumatic seizure disorder; the patient says he did not have a seizure since 1987, history of falls, comes because of fall. The patient is somewhat difficult to understand because of his surgery to the windpipe, but this seemed to be like a mechanical fall. No loss of consciousness. No hitting of the head. He was able to get up and able to walk with limping. Currently, resting comfortably, hemodynamically stable. He has scratches all over his lower extremities and upper chest and upper back, he says from the bug bites. He lives alone. 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 He says he is eating and drinking okay, he swallows okay. Denies any fever, denies any headache, denies any neck pain. He has some back pain. 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 Denies any chest pain, no shortness of breath. He has a chronic cough from his smoking. He says he can ambulate fine 2-3 miles. No nausea, no abdominal pain. Normal bowel and bladder movements. Admission Exam Per Admitting Provider GENERAL: The patient is alert and awake, not in acute distress. VITAL SIGNS: Temperature 37.7, pulse 93, respiratory rate 22, blood pressure 127/74, oxygen 97% on 2 liters. HEENT: No pallor. No icterus. Pupils equal, round and reactive to light. Oral mucosa moist. NECK: No JVD. No neck masses. CARDIOVASCULAR: S1 and S2 heard. Regular rate and rhythm. No murmur, no gallop. RESPIRATORY SYSTEM: Normal AP diameter. No accessory muscle use. No wheezing, no crackles. ABDOMEN: Soft, bowel sounds present, nontender, no distention. CENTRAL NERVOUS SYSTEM: Alert and awake. No facial droop. Obeys simple commands. Moves extremities. EXTREMITIES: Bilateral scratches. No edema seen. No external rotation of the lower extremities. SKIN: Scratch bruises seen in the lower extremities, in the upper chest and upper trunk. Principal Diagnosis Right intertrochanteric femur fracture Discharge Exam Gen: Elderly appearing male, lying sideways in bed, ill appearing, thin, NAD, A&O x3 basics, speech impairment HEENT: Normocephalic, atraumatic, conjunctivae moist, sclerae anicteric, mucous membranes moist Lung: Clear to Auscultation bilaterally, no wheezes/rales/rhonchi Heart: Regular rate, regular rhythm, no murmurs, rubs, or gallops Abdomen: Soft, NT, ND +BS x 4 Extremities: No edema, R hip dressing clean/dry/intact Skin: Warm, no rash Discharge Data Allergies Allergy/AdvReac Type Severity Reaction Status Date / Time No Known Allergies Allergy Unknown Unverified 01/23/22 16:40 Consultations 01/23/22 19:13 ED Decision to Admit Stat 01/24/22 07:25 Consult Orthopedic Surgery Routine Procedures Performed Operation Date: 01/25/22 10:00 Actual Procedures p Open Reduction Internal Fixation Right Intratrochanteric Fracture (Right) - Antonio Llanes DO Ordered Studies 01/24/22 00:39 CT chest diagnostic wo con Urgent CT hip RT wo con Urgent 01/24/22 15:16 MR hip RT wo con Urgent 01/25/22 FL hip RT 2-3V Routine Hospital Course (1) Closed fracture of greater trochanter of right femur: (2) Fall: (3) Traumatic brain injury: (4) Seizures: (5) COPD (chronic obstructive pulmonary disease): (6) Rash and nonspecific skin eruption: Plan This is a 66-year-old male with past medical history significant for emphysema, ongoing tobacco abuse, history of head injury, repair of the windpipe, traumatic brain injury long time back, as per the patient 1981, history of posttraumatic seizure disorder; the patient says he did not have a seizure since 1987, history of falls, comes because of fall and found to have closed fracture of greater trochanter of right femur. Status post open reduction and internal fixation right intertrochanteric fracture on 01/25/2022, postop day #4. Recovering well postoperatively and going to [facility] for rehab. Was found to be hypoxic during admission with emphysematous change on CAT scan and possible infiltration bilaterally that could be due to to aspiration. Is completing antibiotic course for this. Oxygen requirement has been weaned and patient now saturating at 93% on room air. Cough improved with IV Solu-medrol. Transitioned to Medrol Dosepak today. Also found to have BLE pruritic rash. Complete 1 week of topical steroid cream. Patient hemodynamically stable at time of discharge to [facility]. Total Time Total Time Spent Total Time Spent (In Minutes): 55 Discharge Plan Discharge Items Patient Disposition: Transfer Inpatient Rehab Fac Reason For Visit: FALL Discharge Diagnosis: Right intertrochanteric femur fracture Activity: Per Instructions section Weightbearing: Right weightbearing Weightbearing Comment: as tolerated with walker Non-emergency contact: Primary Care Provider Call non-emergency contact if: you have any medication questions, your symptoms worsen, your pain is not controlled and you have a fever Follow-up/Referrals: Antonio Llanes DO [Surgeon] - (Follow up with Dr Llanes in 2 weeks from the day of your surgery for your first post operative check up.) PCP,NO [Physician] - Diet: Regular Addtl Attending Provider Instructions: You were admitted after fall and found to have closed fracture of greater trochanter of right femur. Status post open reduction and internal fixation right intertrochanteric fracture on 01/25/2022, postop day #4 Orthopedic surgery instructions as below Found to be hypoxic during admission with emphysematous change on CAT scan Complete antibiotics for possible infiltration bilaterally could be secondary to aspiration Initially requiring oxygen but now saturating at 93% on room air Cough improved with IV Solu-medrol. Transitioned to Medrol dosepak today BLE pruritic rash. Complete 1 week of topical steroid cream MEDICATION CHANGES: Continue Cefdinir BID on 01/30/22 to complete course Continue doxycycline BID until course completed Continue Medrol dosepack until course completed Continue Triamcinolone acetonide cream twice daily x 1 week See below for aspirin instructions per ortho RECOMMENDATIONS FOR FOLLOW-UP: Follow up with PCP and orthopedic surgery OTHER INSTRUCTIONS: Seek medical attention if you have: * temperature above 101 * chest pain or trouble breathing * abdominal pain, nausea, vomiting * diarrhea, dark stools or bloody stools * any unanswered questions or concerns Call 911 if symptoms are severe. Please take good care of yourself. Call if you have any questions or problems. You can reach a [facility] hospitalist on duty at [facility] 24 hours a day by calling [phone]. Addtl [employer] Provider Instructions: [facility] DISCHARGE INSTRUCTIONS: HIP FRACTURE SELF CARE INSTRUCTIONS: A. You are to ambulate with a walker or crutches for approximately 6 weeks. B. You are WEIGHT BEARING TOLERATED with walker on your operative lower extremity for at least 6 weeks. C. Wear low heeled shoes with non-slip soles D. Be sure that your floors are free of things that could trip you throw rugs, electrical cords, and small objects. Avoid wet and waxed floors, especially with crutches/walker/cane. E. Try to walk several times a day with rest periods between. F. You may shower 48 hours after surgery and get the incision area wet, but DO NOT soak or submerge incision area in water. (No baths, swimming pools, hot tubs) G. You may have a large, band-aid like dressing over your incision (Aquacel). This will remain on your incision for 7 days, and then can be removed. You CAN shower with this on. If incision is leaking through the dressing, please call the office . H. Do NOT apply soap or any ointment/lotions directly over incision. I. You may use ice as needed to operative site. SPECIAL CARE INSTRUCTIONS: VERY IMPORTANT TO READ AND REVIEW A. You may be at risk for phlebitis or blood clots. a. Wear surgical stockings (CALEB hose) for 2 weeks after surgery to improve circulation and reduce swelling. b. Take ASPIRIN 81mg orally twice daily for 4 weeks or as directed. This is your blood thinner. c. If you are on Coumadin- you will have daily/weekly blood work to monitor your levels. This will be done by either your family physician/galley hand (if you are on Coumadin chronically) versus your orthopedic surgeon. Expect a phone call the day of or the day after your blood work is drawn to adjust your dose accordingly. B. There are a few signs you need to watch for after you are home. Call [facility] at [phone] if you experience any of the following: a. If you have a temperature of 101 degrees or higher. b. Sudden increase in pain in your hip not relieved by rest or pain medication. c. Any fluid or drainage from the incision; redness of the incision. d. Shortness of breath or chest pain. C. Call your physician if: a. Temperature is greater than 101 degrees (F). b. Pain is not relieved by prescribed pain medications. c. Increase drainage or redness from incision. d. Unanswered questions or concerns. D. Pain Medication: a. You will be prescribed pain medication upon discharge that should last till your first post-operative appointment. b. If you experience nausea and/or skin rash, discontinue this medication and contact our office for an alternative medication. c. Caution- narcotic pain medication can cause constipation. FOLLOW UP VISIT: Please call [facility] [place] at [phone] to schedule a follow up appointment 10-14 days from the date of your surgery date. Pending Studies at Discharge: No Stand-Alone Forms: My [facility] Skilled Items Patient informed of condition?: Yes DNR: No Discharge Level of Care: Acute rehab Communicable Disease: No Discharge Prognosis: Stable Lines: None Urinary Catheter: No Medications and DC Order Prescriptions: New doxycycline hyclate 100 mg Capsule 100 mg PO BID Qty: 8 0RF triamcinolone acetonide 0.1 % Ointment 1 applic EXT BID Qty: 15 0RF Rx Instructions: Use twice daily for 1 week methylprednisolone [Medrol] 4 mg tablet 4 mg PO QID Qty: 15 0RF Rx Instructions: Medrol dosepak take 1 tab at supper and 2 at bedtime. Then continue dosepak taper days 2-6 as instructed cefdinir 300 mg capsule 300 mg PO BID 1 Days Qty: 2 0RF Rx Instructions: Take remaining 2 capsules AM and PM on 01/30/22 to complete course aspirin 81 mg Tablet,Delayed Release (Dr/Ec) 81 mg PO BID Qty: 60 0RF Rx Instructions: Take twice daily for 4 weeks as instructed by ortho Continued phenytoin sodium extended 100 mg capsule 100 mg PO BID Discharge Orders: Discharge Order (Routine); Ordered 01/29/22 Ordered By: Anabella Brown Admission Data Admit Date/Time: 01/23/22 20:40 Attending Provider: Kira Schaffer Admit Provider: Horacio Malin Primary Care Provider: Jason Ruiz [facility] ; Horacio Malin ; Antonio Llanes ; Anabella Brown Other Interventions: Discharge Summary Assessment (RN) Last Done: 01/29/22 14:28 Supervising Physician Co-Signing Physician Notes Patient seen and examined at bedside as a follow-up of closed fracture of greater trochanter of right femur status post repair on 01/25/2022, after mechanical fall and history of traumatic brain injury [speech impairment and seizure disorder since then], and possible copd exacerbation vs pneumonia. Patient to complete the course of antibiotic and prednisone taper. Patient weaning down on oxygen appropriately. Upon examination: Patient chronically ill-appearing, speech impairment noted, sitting up in bed, confused, heart lungs and abdomen examination within normal limit, no BLE edema. No open skin wound noted. I have seen and examined the patient and have discussed the case with the provider above. I agree with the assessment and plan as stated.
[2022-01-30] MEDS ORDERED: methylPREDNISolone 4 MG TAB PO SCH ×2 (07:00→21:00)
[2022-01-31] MEDS ORDERED: methylPREDNISolone 4 MG TAB PO SCH (07:00)
[2022-02-01] MEDS ORDERED: methylPREDNISolone 4 MG TAB PO SCH (07:00)
[2022-02-02] MEDS ORDERED: methylPREDNISolone 4 MG TAB PO SCH (07:00)
[2022-02-03] MEDS ORDERED: methylPREDNISolone 4 MG TAB PO SCH (07:00)
== END 2022-01-29 16:24 | DRG 481 ==
LOC: ED 16:07 → SUATTDRO 20:40 → 3W 20:40
DX: Z83.3 Family history of diabetes mellitus; G40.909 Epilepsy, unspecified, not intractable, without status epilepticus; W18.39XA Other fall on same level, initial encounter; V89.2XXS Person injured in unspecified motor-vehicle accident, traffic, sequela; R64 Cachexia; R47.1 Dysarthria and anarthria; F17.210 Nicotine dependence, cigarettes, uncomplicated; Y92.009 Unspecified place in unspecified non-institutional (private) residence as the place of occurrence of the external cause; S06.9X9S Unspecified intracranial injury with loss of consciousness of unspecified duration, sequela; R21 Rash and other nonspecific skin eruption; S72.114A Nondisplaced fracture of greater trochanter of right femur, initial encounter for closed fracture

== ENCOUNTER 2022-04-17 21:38 | Inpatient (IN) ==
[2022-04-17] MEDS ORDERED: SODIUM CHLORIDE 0.9% 1000ML 2,000 ML IV ONE (21:57)
[2022-04-17] MEDS ORDERED: ALBUT/IPRATROP 3MG/0.5MG NEB 3 ML VIAL NEB ONE (21:57)
[2022-04-17] MEDS ORDERED: methylPREDNISolone 125 MG/2 ML VIAL IV STA (21:57)
[2022-04-17 22:24] LABS: Basophils # (auto) 0.03 K/uL (0-0.2); Basophils % (auto) 0.2 %; Hematocrit (blood only) 36.4 % (40.1-51.0); Immature Granulocytes # (auto) 0.07 K/uL (0.00-0.02); Immature Granulocytes % (auto) 0.5 %; Lymphocytes # (auto) 0.96 K/uL (1.2-3.4); Lymphocytes % (auto) 7.3 %; Mean Corpuscular Hemoglobin 32.1 pg (25.0-34.0); Mean Corpuscular Volume 97.3 fL (80.0-100.0); Mean Platelet Volume 9.2 fL (9.4-12.4); Monocytes # (auto) 1.17 K/uL (0.24-0.82); Monocytes % (auto) 8.9 %; Neutrophils # (auto) 10.89 K/uL (1.4-6.5); Neutrophils % (auto) 83.1 %; Platelet Count 208 K/uL (130-400); RDW Coefficient of Variation 13.4 % (11.5-14.5); RDW Standard Deviation 48.1 fL (36.4-46.3); Red Blood Count 3.74 M/uL (4.63-6.08); White Blood Count 13.12 K/ul (4.8-10.8)
[2022-04-17 22:24] LABS: iSTAT Creatinine 1.2 mg/dl (0.6-1.3); iSTAT Hemoglobin 12.9 g/dl (14.0-18.0); iSTAT Ionized Calcium 1.17 mmol/l (1.12-1.32); iSTAT Potassium 4.2 mmol/L (3.3-5.0)
[2022-04-17] MEDS ORDERED: ACETAMINOPHEN 1,000 MG/100 ML VIAL IV STA (22:30)
--- NOTE | 2022-04-17 22:37 | XRay Report ---
XR hip RT 2V w pelvis CLINICAL HISTORY: pain fall TECHNIQUE: 2 views of the right hip and single frontal view of the pelvis were obtained. Comparison: Comparison is made to right hip radiograph 01/24/2022 FINDINGS: Right medullary popeye has been placed. No evidence of acute fracture. Old deformity of the right pubic rami noted. Joint spaces are well-preserved. No soft tissue abnormality is seen. IMPRESSION: No evidence of acute osseous injury. Old healed fractures and right femoral hardware placement noted. ACT 112: Negative or not required by law. Electronically signed by: Arturo Malave M.D. 04/17/2022 10:35 PM
--- NOTE | 2022-04-17 22:38 | XRay Report ---
XR shoulder RT min 2V routine CLINICAL HISTORY: pain fall TECHNIQUE: 3 views of the right shoulder were obtained. Comparison: Comparison is made to right shoulder radiographs 08/12/2020 FINDINGS: There is an acute fracture of the proximal humerus. Comminuted appearance of the distal clavicle is u nchanged from prior exam. Soft tissue swelling is seen about the shoulder. The visualized portions of the lungs are clear. IMPRESSION: There is an acute fracture of the proximal humeral metadiaphysis which does not involve the articular surface, surrounding soft tissue swelling is seen. Old fracture of the distal clavicle is noted. ACT 112: Negative or not required by law. Electronically signed by: Arturo Malave M.D. 04/17/2022 10:36 PM
--- NOTE | 2022-04-17 22:41 | XRay Report ---
XR chest 1V portable CLINICAL HISTORY: Sepsis TECHNIQUE: Single frontal radiograph of the chest was obtained. Comparison: Comparison is made to chest radiograph 01/23/2022 FINDINGS: No lines and tubes are seen. The aorta is tortuous. The remainder of the cardiomediastinal silhouette is unremarkable. The lungs are clear. No evidence of pleural effusion or pneumothorax. IMPRESSION: No acute chest disease. Please see right shoulder radiograph for findings of humeral fracture. ACT 112: Negative or not required by law. Electronically signed by: Arturo Malave M.D. 04/17/2022 10:39 PM
[2022-04-17 22:47] LABS: Prothrombin Time 11.1 Seconds (9.0-12.0)
[2022-04-17 22:49] LABS: Alanine Aminotransferase 21 U/L (7-52); Albumin Level 4.1 gm/dl (3.4-5.0); Alkaline Phosphatase 132 U/L (34-104); Anion Gap 8 (3-11); Aspartate Aminotransferase 16 U/L (13-39); BUN Creatinine Ratio 25.2 (10-20); Bilirubin Direct 0.1 mg/dl (0-0.2); Bilirubin,Total 0.5 mg/dl (0.2-1.0); Blood Urea Nitrogen 29 mg/dl (6-23); Carbon Dioxide 27 mmol/L (21-32); Chloride 101 mmol/L (98-107); Est GFR (African American) 75.9 ml/min; Est GFR (Non-African American) 65.5 ml/min; Glucose 67 mg/dl (70-99(Fasting)); Lipase 16 U/L (11-82); Magnesium 1.8 mg/dl (1.7-2.4); Phosphorus 3.2 mg/dl (2.5-4.9); Potassium 4.1 mmol/L (3.5-5.1); Sodium 136 mmol/L (136-145); Total Protein 7.5 gm/dl (6.0-8.3); Troponin I High Sensitivity 4.5 pg/ml (0-20)
[2022-04-17 22:54] LABS: Base Excess VBG 3.6 mEq/L; HCO3 VBG 30 mmol/L; Oxygen Saturation VBG < 60.0 %; PCO2 VBG 52 mmHg (38-50); PO2 VBG 27 mmHg; pH VBG 7.37 (7.36-7.41)
[2022-04-18 00:29] LABS: Adenovirus PCR Not Detected (NotDetected); Bordetella parapertussis PCR Not Detected (NotDetected); Bordetella pertussis PCR Not Detected (NotDetected); Chlamydia pneumoniae PCR Not Detected (NotDetected); Coronavirus 229E PCR Not Detected (NotDetected); Coronavirus CoV-2 (COVID19)PCR Not Detected (NotDetected); Coronavirus HKU1 PCR Not Detected (NotDetected); Coronavirus NL63 PCR Not Detected (NotDetected); Coronavirus OC43PCR Not Detected (NotDetected); Human Metapneumovirus PCR Not Detected (NotDetected); Influenza A PCR Not Detected (NotDetected); Influenza B PCR Not Detected (NotDetected); Mycoplasma pneumoniae PCR Not Detected (NotDetected); Parainfluenza Virus 1 PCR Not Detected (NotDetected); Parainfluenza Virus 2 PCR Not Detected (NotDetected); Parainfluenza Virus 3 PCR Not Detected (NotDetected); Parainfluenza Virus 4 PCR Not Detected (NotDetected); Respiratory Syncytial VirusPCR Not Detected (NotDetected); Rhinovirus/Enterovirus PCR Not Detected (NotDetected)
[2022-04-18 00:30] LABS: Appearance Urine Clear (Clear); Bacteria Urine Automated Negative (Negative); Bilirubin Urine Negative (Negative); Blood Urine Trace (Negative); Color Urine Yellow; Glucose Urine UA Negative (Negative); Ketones Urine Negative (Negative); Leukocyte Esterase Urine Negative (Negative); Nitrite Urine Negative (Negative); Protein Urine Negative (Negative); RBC Urine Automated 0-4 /hpf (0-4); Specific Gravity Urine 1.021 (1.000-1.030); Urobilinogen Urine Negative (Negative); pH Urine 6.5 (4.5-7.5)
--- NOTE | 2022-04-18 00:35 | Emergency Department Note ---
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 effect or edema. No evidence of acute cortical stroke. Periventricular small vessel ischemic change. Visualized sinuses and mastoid air cells are clear. Radiologist: Joe Elmore MD Study ready at 01:00 and initial results transmitted at 01:02 -- Preliminary Findings Only See Final Report For Complete Findings CT C SPINE: There is exaggeration of the cervical lordotic curvature. The bones are demineralized. No acute fracture or subluxation is seen. No aggressive osseous lesion. There are moderate to severe multilevel degenerative changes. Limited vi sualization of the lung apices demonstrates advanced emphysema. Radiologist: Joe Elmore MD Study ready at 01:06 and initial results transmitted at 01:08 -- Preliminary Findings Only See Final Report For Complete Findings CTA CHEST: Fair opacification of the pulmonary toiletry, no central pulmonary arterial filling defect is seen. There is extensive emphysema. Parenchymal consolidation in the left upper lobe which may reflect infection. Radiologist: Joe Elmore MD Study ready at 01:21 and initial results transmitted at 01:23 --- Preliminary Findings Only See Final Report For Complete Findings CT ABDOMEN & PELVIS With Contrast: Prior CT of the abdomen and pelvis dated 12/05/20 is reviewed. There is moderate stool distention of the colon. There is moderate atherosclerotic disease of the aorta and its major branch vasculature. No acute pathology in the abdomen or pelvis. Please see the separately dictated report of the CTA chest. C Radiologist: Joe Elmore MD Study ready at 01:23 and initial results transmitted at 01:26 Discharge Plan Visit Data Chief Complaint: Fall Stated Complaint: FALL ED Provider: Michele Schwartz Discharge Problem: Sepsis, Pneumonia, Acute respiratory failure with hypoxia, Elevated Dilantin level, Fracture of proximal humerus Forms Stand Alone Forms: My [facility] Prescriptions Prescriptions: No Action phenytoin sodium extended 100 mg capsule 100 mg PO BID aspirin 81 mg Tablet,Delayed Release (Dr/Ec) 81 mg PO BID Qty: 60 0RF Rx Instructions: Take twice daily for 4 weeks as instructed by ortho Referrals Referrals: PCP,NO [Primary Care Provider] -
[2022-04-18] MEDS ORDERED: OPTIRAY 320 500ml IV ONE (01:01)
[2022-04-18] MEDS ORDERED: CEFEPIME 2,000 MG/20 ML VIAL IV STA (01:57)
[2022-04-18] MEDS ORDERED: VANCOMYCIN CONSULT ACTIVE PRN (01:57)
[2022-04-18] MEDS ORDERED: VANCOMYCIN HCL 1,250 MG in SODIUM CHLORIDE 0.9% 500 ML IV ONE (01:57)
[2022-04-18] MEDS ORDERED: DOXYCYCLINE HYCLATE 100 MG in DEXTROSE 5% 100 ML IV STA (02:01)
[2022-04-18] MEDS ORDERED: POLYETHYLENE (MIRALAX) 17 GM PACK PO PRN (04:37)
[2022-04-18] MEDS ORDERED: D5W AND 1/2NSS 1,000 ML IV SCH (04:37)
[2022-04-18] MEDS ORDERED: NITROGLYCERIN SL 0.4 MG/TAB TAB SL PRN (04:37)
[2022-04-18] MEDS ORDERED: ALBUT/IPRATROP 3MG/0.5MG NEB 3 ML VIAL NEB PRN (04:37)
[2022-04-18] MEDS ORDERED: Patient's HEIGHT &/or WEIGHT Needed SCH (05:00)
[2022-04-18] MEDS ORDERED: PIPERACILLIN/TAZOBACTAM 3.375 GM in DEXTROSE 5% 100 ML IV ONE (05:00)
--- NOTE | 2022-04-18 05:55 | History and Physical Report ---
DATE OF ADMISSION: 04/17/2022. CHIEF COMPLAINT: Fall, humerus fracture, pneumonia, altered mental status. HISTORY OF PRESENT ILLNESS: This is a 66-year-old male with past medical history significant for emphysema, ongoing tobacco abuse, history of head injury, repair of the windpipe, traumatic brain injury,long time back, and history of posttraumatic seizure disorder, history of falls. The patient is currently residing at a boarding house at [facility]. Presents with shortness of breath, fever, generalized weakness, and fall today morning. When he came toER he seems wheezing bilaterally and prolonged expiratory phase,, and was saturating at 85% on room air, and temperature was 37.7 on arrival, heart rate in the 100s. He was given an hour long neb treatment and his right hand was placed in the sling as x-ray showed right humerus fracture. VBG was okay. The patient's phenytoin level was supratherapeutic at 26.8. Respiratory panel was negative. He was given antibiotics vancomycin, cefepime, and doxycycline. The patient because of the injury to the windpipe generally is difficult to understand, but today he is totally sleeping and does not want to answer any questions, wants to go back to sleep. Could not get any history from the patient. ALLERGIES: No known drug allergies. PAST MEDICAL HISTORY: As mentioned above. PAST SURGICAL HISTORY: Colonoscopy, tonsillectomy and adenoidectomy, repair of the windpipe related to closed head injury. MEDICATIONS: The patient is on aspirin 81 mg p.o. b.i.d., phenytoin sodium extended release 100 mg p.o. b.i.d. FAMILY HISTORY: Significant for father has diabetes; mother has COPD. SOCIAL HISTORY: Currently living at a [facility]. Seems to be still smoking cigarettes. Alcohol, rarely. No drug use. REVIEW OF SYSTEMS: Unobtainable at this time, the patient is not answering any questions. PHYSICAL EXAMINATION: GENERAL: The patient is drowsy, does not seem to be in acute distress. VITAL SIGNS: Temperature 37.7, pulse 74, respiratory rate 18, blood pressure 106/60, oxygen 96% on 3 liters. HEENT: Pupils equal, round, and reactive to light. No facial droop seen. NECK: No neck masses seen. CARDIOVASCULAR: S1 and S2 heard. Regular rate and rhythm. No murmur, no gallop. RESPIRATORY SYSTEM: Normal AP diameter. No accessory muscle. Bilateral diminished breath sounds. ABDOMEN: Soft, bowel sounds present. No distention. CENTRAL NERVOUS SYSTEM: Drowsy and goes back to sleep. EXTREMITIES: No edema, no erythema. LABORATORY DATA: WBC 13.1, hemoglobin 12, hematocrit 36.4, platelets 208. PT 11.1, INR 1. VBG: pH of 7.37, pCO2 of 52, pO2 of 27, bicarbonate 30. Sodium 136, potassium 4.1, chloride 101, CO2 of 27, BUN 29, creatinine 1.1, serum glucose 67, point of care glucose 152. Lactate 1.2, calcium 9, phosphorus 3.2, magnesium 1.8, total bilirubin 0.8, direct bilirubin 0.1, AST 16, ALT 21, alkaline phosphatase 132. Troponin I high sensitivity 4.5. Procalcitonin 0.4. Urinalysis negative. Phenytoin level 26.8. BioFire negative. IMAGING DATA: Shoulder x-ray, right side, shows acute fracture of the proximal humerus metadiaphysis, which does not involve the articular surface. Surrounding soft tissue swelling seen. Old fracture of the distal clavicle leaf noted. Hip and pelvic x-ray on the right side, no acute findings. CT of the head, preliminary report, no acute findings. Chest x-ray, no acute disease seen in the chest; right shoulder, findings of right humeral fracture. CTA chest, preliminary report, no acute findings. Cervical spine CT, preliminary report, no acute findings. Abdomen and pelvis CT, preliminary report, no acute findings. ELECTROCARDIOGRAM: Normal sinus rhythm at a rate of 90, no significant change was found. ASSESSMENT AND PLAN: This is a 66-year-old male who lives at a boarding house at [facility], history of COPD, ongoing tobacco abuse, history of seizures, history of repair of windpipe, traumatic brain injury long time back, posttraumatic seizures, presents with a fall, right humerus fracture, and pneumonia. 1. Pneumonia in the left upper lobe on the CAT scan. He has been having temperature spikes in the ER, mild elevation of white count. Empirically ER started on vancomycin, cefepime, and doxycycline. Will continue with Zosyn and doxycycline. Monitor the response. Gentle fluids for 1 liter. 2. COPD exacerbation, ongoing tobacco: Probably from above. Solu-Medrol 40 mg t.i.d., nebs around the clock, and p.r.n. Will monitor. 3. Right humerus fracture, on a sling. Orthopedics consult. PT, OT when stable, pain control. 4. Currently, lethargic, possibly from above and also possibly from elevated phenytoin levels. CT head is okay. Will monitor. Will repeat the ABG. 5. History of posttraumatic seizure disorder. On phenytoin sodium 100 mg b.i.d. Currently levels are high, will hold, and may need to discuss with neurology for adjustment of doses and followup with neurology.Follows with [facility] neurology. 6. Tobacco abuse: Needs counseling. 7. Deep venous thrombosis prophylaxis: Lovenox. DISPOSITION: Closely monitor in the med tele. PT/OT prior to discharge. Social service to help with discharge planning. Job ID: [id number] MTDD
[2022-04-18] MEDS ORDERED: methylPREDNISolone 40 MG in SYRINGE 0 ML IV SCH (06:00)
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
[2022-04-18 07:34] LABS: Basophils # (auto) 0.02 K/uL (0-0.2); Basophils % (auto) 0.2 %; Hematocrit (blood only) 28.2 % (40.1-51.0); Hemoglobin 9.3 g/dl (14.0-18.0); Immature Granulocytes # (auto) 0.05 K/uL (0.00-0.02); Immature Granulocytes % (auto) 0.6 %; Lymphocytes # (auto) 0.95 K/uL (1.2-3.4); Lymphocytes % (auto) 11.5 %; Mean Corpuscular Hemoglobin 31.4 pg (25.0-34.0); Mean Corpuscular Volume 95.3 fL (80.0-100.0); Monocytes # (auto) 0.57 K/uL (0.24-0.82); Monocytes % (auto) 6.9 %; Neutrophils % (auto) 80.8 %; Platelet Count 146 K/uL (130-400); RDW Coefficient of Variation 13.5 % (11.5-14.5); RDW Standard Deviation 46.6 fL (36.4-46.3); Red Blood Count 2.96 M/uL (4.63-6.08); White Blood Count 8.29 K/ul (4.8-10.8)
[2022-04-18 07:40] LABS: Base Excess ABG -0.7 mEq/L (-9-1.8); HCO3 ABG 24 mmol/L (19-24); Oxygen Saturation ABG 98.4 % (90-95); PCO2 ABG 40 mmHg (35-46); PO2 ABG 89 mmHg (80-95); pH ABG 7.39 (7.35-7.45)
[2022-04-18 07:43] LABS: Allen Test Pos (Pos)
[2022-04-18] MEDS: ALBUT/IPRATROP 3MG/0.5MG NEB 3 ML VIAL NEB SCH ×2 (07:44→11:33)
--- NOTE | 2022-04-18 07:58 | CT Scan Report ---
CHEST CTA for PULMONARY ARTERIES CT DOSE: HISTORY: hypoxia, sepsis, r/o PE TECHNIQUE: Multiaxial CT images of the chest were performed following the intravenous administration of contrast to evaluate the pulmonary arteries. Maximal intensity projection images were also obtaine d. A dose lowering technique was utilized adhering to the principles of ALARA. COMPARISON STUDY: Chest CT 01/24/2022. FINDINGS: No evidence for an aortic dissection. The heart is normal in size. No pleural or pericardia l effusions. No filling defects within the pulmonary arteries to suggest a pulmonary embolus. Comminu darius and mildly displaced right humeral neck fracture is noted. Old, healed right clavicle fracture. T here are multiple old right-sided rib fractures. Postoperative changes within the left humerus. Multi ple compression deformities within the thoracic spine which are likely chronic. Abdominal structures will be reported on the same day abdomen and pelvis CT. Normal esophagus. The thyroid gland enhances normally. No mediastinal or hilar lymphadenopathy. No pneumothorax. Emphysema. Linear focus of consol idation within the left upper lobe posteriorly favors subsegmental atelectasis. A pneumonia could als o have a similar appearance. Right basilar linear densities also consistent with subsegmental atelect asis. Partial mucoid opacification the right lower lobe bronchi. IMPRESSION: 1. No evidence for a pulmonary embolus. 2. Comminuted and mildly displaced right humeral neck fracture. 3. Emphysema. 4. Linear density within the left upper lobe posteriorly favor subsegmental atelectasis. A pneumonia could also have a similar appearance. ACT 112: Negative or not required by law. Electronically signed by: Ganesh Chen M.D. 04/18/2022 7:56 AM
--- NOTE | 2022-04-18 08:05 | CT Scan Report ---
ABDOMEN AND PELVIS CT WITH IV CONTRAST CT DOSE: HISTORY: Generalized abdominal pain, fall sepsis TECHNIQUE: Multiaxial CT images of the abdomen and pelvis were performed following the use of intrave nous contrast. A dose lowering technique was utilized adhering to the principles of ALARA. COMPARISON STUDY: Abdomen and pelvis CT 12/05/2020. FINDINGS: Compression deformities again noted within the lower thoracic and lumbar spine. These are l ikely chronic. Old posttraumatic and postoperative changes noted within the right hip. There is an ac [place] nondisplaced fracture within the right acetabulum. This extends to the medial wall the acetabulum and as seen on the acetabular roof. Multiple old, healed right-sided rib fractures. Postoperative ch anges seen within the right wrist. The liver, gallbladder, spleen, adrenal glands, and pancreas are u nremarkable. There is mild heterogeneous enhancement within the kidneys. This may be due to the overl davie streak artifact from the patient's arms or scarring. Correlation with urinalysis recommended to exclude the possibility of a pyelonephritis. No hydronephrosis. No retroperitoneal lymphadenopathy or hematoma. Small right pelvic sidewall hematoma from the acetabular fracture. This results in minimal mass effect along the right bladder wall. No bladder wall thickening. Moderate well-formed stool wit hin the colon. Colonic diverticulosis. No evidence for acute diverticulitis. No definite bowel wall t hickening or obstruction. Normal appendix. IMPRESSION: 1. Acute nondisplaced right acetabular fracture. There is associated small right pelvic sidewall chavez brittny with minimal mass effect along the bladder. 2. Multiple compression deformities again noted within the lower thoracic and lumbar spine. These are likely chronic. 3. There is mild heterogeneous enhancement within the kidneys. This may be due to the overlying strea k artifact from the patient's arms or scarring. Correlation with urinalysis recommended to exclude th e possibility of a pyelonephritis. 4. This report was called/faxed to the emergency department following dictation. ACT 112: Negative or not required by law. Electronically signed by: Ganesh Chen M.D. 04/18/2022 8:03 AM
--- NOTE | 2022-04-18 08:05 | CT Scan Report ---
HEAD CT NONCONTRAST CT DOSE: HISTORY: pain fall TECHNIQUE: Multiaxial CT images of the head were performed without the use of intravenous contrast. A utomated exposure control was utilized for this study. A dose lowering technique was utilized adheri ng to the principles of ALARA. Comparison: Head CT 08/12/2020. Findings: Retention cyst within the right maxillary sinus. Opacified bilateral mastoid air cells, unc hanged. The calvarium and skull base are intact. There is no mass, hematoma, midline shift, acute inf arct. White matter hypodensity is nonspecific but suggestive of microvascular ischemic change. The ve ntricles and sulci demonstrate mild age-related involutional changes. Impression: No acute intracranial abnormality. ACT 112: Negative or not required by law. Electronically signed by: Ganesh Chen M.D. 04/18/2022 8:04 AM
--- NOTE | 2022-04-18 08:05 | CT Scan Report ---
CERVICAL SPINE CT CT DOSE: 1497.88 mGy.cm HISTORY: pain fall TECHNIQUE: Multiaxial CT images of the cervical spine were performed and reformatted in the sagittal and coronal plane without the use of contrast. A dose lowering technique was utilized adhering to th e principles of ALARA. COMPARISON: Cervical spine CT 08/12/2020. FINDINGS: No fractures. No subluxation. Prevertebral soft tissues and the C1-C2 interval are intact. No pneumothorax. Opacified mastoid air cells with middle ear effusions and chronic partial erosion of the ossicles. This remains unchanged. Emphysema. Chronic compression deformities noted within the up per thoracic spine. Moderate multilevel degenerative changes again noted. IMPRESSION: No fractures within the cervical spine. Additional findings as described above. ACT 112: Negative or not required by law. Electronically signed by: Ganesh Chen M.D. 04/18/2022 8:04 AM
[2022-04-18 08:12] LABS: BUN Creatinine Ratio 32.9 (10-20); Calcium 7.9 mg/dl (8.5-10.1); Creatinine Clr Calc Pharmacy 71.4 ml/min; Est GFR (African American) 113.2 ml/min; Est GFR (Non-African American) 97.7 ml/min; Magnesium 1.6 mg/dl (1.7-2.4); Potassium 3.9 mmol/L (3.5-5.1)
--- NOTE | 2022-04-18 08:26 | CT Scan Report ---
RIGHT SHOULDER CT CT DOSE: HISTORY: proximal humerus fracture TECHNIQUE: Multiaxial CT images of the right shoulder were performed and reformatted in the sagittal and coronal plane without the use of contrast. A dose lowering technique was utilized adhering to e principles of ALARA. COMPARISON: Right shoulder radiograph 04/17/2022. FINDINGS: Redemonstration of a comminuted, mildly displaced, and impacted right humeral neck fracture . This is not extend into the humeral head. No dislocation. The fracture demonstrates mild angulation and mild posterior lateral displacement of up to 12 mm. There are old, healed right-sided rib fractu res and an old, healed right clavicle fracture. There may be an acute nondisplaced fracture component within the right clavicle. No pneumothorax. The scapula appears intact. IMPRESSION: 1. Redemonstration of the comminuted, mildly displaced, and impacted right humeral neck fracture. No dislocation. 2. Acute on chronic nondisplaced distal right clavicle fracture ACT 112: Negative or not required by law. Electronically signed by: Ganesh Chen M.D. 04/18/2022 8:25 AM
--- NOTE | 2022-04-18 08:28 | Electrocardiogram Report ---
Test Reason : Blood Pressure : / mmHG Vent. Rate : 090 BPM Atrial Rate : 090 BPM P-R Int : 144 ms QRS Dur : 090 ms QT Int : 360 ms P-R-T Axes : 075 047 064 degrees QTc Int : 440 ms Poor data quality, interpretation may be adversely affected Normal sinus rhythm Normal ECG When compared with ECG of 24-JAN-2022 07:29, No significant change was found Confirmed by Rob Cortes ([id number]) on 04/18/2022 8:28:24 AM Referred By: REFERRED SELF Confirmed By:Rob Cortes
[2022-04-18] MEDS: HEPARIN SOD 5,000 UNIT/0.5 ML VIAL SQ SCH ×2 (10:15→22:36)
[2022-04-18] MEDS: ASPIRIN 81 MG ECTAB PO SCH ×2 (10:15→22:39)
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
--- NOTE | 2022-04-18 11:26 | Hospitalist Progress Note ---
Date of Service April 18, 2022 Assessment & Plan (1) Fracture of proximal humerus: (2) Fracture, intertrochanteric, right femur: Plan: Presents after a mechanical fall from boarding home History of repeated falls in the past as well due to ambulatory dysfunction. CT abdomen and pelvis shows acute nondisplaced right acetabular fracture. Associated a small right pelvic sidewall hematoma with minimal mass-effect along the bladder. Patient is voiding well by himself. Shoulder CT shows commuted mildly displaced and impacted humeral neck fracture. Acute on chronic nondisplaced right clavicle fracture Plan; Continue pain control with Tylenol and oxycodone. Orthopedic on board; appreciate recommendation. (3) Emphysema/COPD: (4) Acute respiratory failure with hypoxia: (5) Pneumonia: Plan: Was hypoxic with O2 sat of 88% on presentation; in room air shortly after. CT chest shows linear density within left upper lobe posteriorly. Emphysema present Received dose of steroid on admission as well. Plan; -Currently on Zosyn and Vanco and doxycycline. Obtain MRSA nasal swab; will discontinue Vanco if negative. Monitor oxygen saturation; O2 goal 88 to 92% Not on any inhalers at home; no wheezes on examination. 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 Has admissions in the past due to Dilantin toxicity. Serum Dilantin on presentation 26; 20 today Plan; Neurology on board; recommend holding Dilantin today. Will restart Dilantin 200 mg once daily in the morning starting tomorrow. Need to have trough Dilantin level checked in 1 week. Follow-up with neurology as outpatient in 3 to 4 weeks. Discussed goals of care; DNR/DNI. Heparin for DVT prophylaxis. Admission and Anticipated Discharge Date Admission Date: April 18, 2022 Subjective Patient seen and examined at bedside. Is lying down on the bed comfortably; not in distress. He Reports pain in his right hip and right arm. Review of Systems Review of Systems: All systems reviewed & are unremarkable except as noted in Subjective Physical Exam Physical Exam: Constitutional: Awake, alert orient x3; has dysarthria Head: Normocephalic, Atraumatic Eyes: PERRL, conjunctivae normal, anicteric sclerae ENMT: external ear and nose normal, oropharynx normal Neck: trachea midline, no thyromegaly normal visual inspection Respiratory: normal respiratory effort, lungs clear to auscultation, no wheeze, rales, rhonchi. Normal insp/exp effort, no accessory muscle use Cardiovascular: RRR, no murmur, no edema Vessels: no JVD or carotid bruit Chest: normal inspection of chest Abdomen: normal bowel sounds, soft, nontender, no hepatosplenomegaly Musculoskeletal: Tenderness on right arm. Painful ROM of right hip. Skin: no rashes, warm and dry normal turgor Neurologic: Awake alert oriented x3. Dysarthria present. 5/5 strength in bilateral upper extremity. 4/5 bilaterally in lower extremities. Psychiatric: A+Ox3, euthymic affect Lymphatic: no cervical or axillary lymphadenopathy : deferred Results & Data Results & Data ([facility]) Vital Signs (Past 12 Hours) Vital Signs Temp Pulse Pulse Pulse Resp BP Pulse Ox 04/18/22 07:50 36.7 C 73 18 94/55 L 96 04/18/22 07:46 76 18 96 04/18/22 07:22 71 04/18/22 06:15 04/18/22 06:15 36.5 C 77 18 110/64 96 04/18/22 03:30 36.8 C 72 18 108/65 95 04/18/22 03:15 68 16 103/58 L 97 04/18/22 02:30 74 18 106/60 96 04/18/22 01:00 84 18 96/49 L 96 04/18/22 00:00 97 H 16 111/66 88 L O2 Del Method O2 Flow Rate 04/18/22 07:50 Room Air 04/18/22 07:46 Nasal Cannula 3 04/18/22 07:22 04/18/22 06:15 Nasal Cannula 3 04/18/22 06:15 Nasal Cannula 3 04/18/22 03:30 04/18/22 03:15 Nasal Cannula 3 04/18/22 02:30 Nasal Cannula 3 04/18/22 01:00 Room Air 04/18/22 00:00 Room Air Laboratory Results Laboratory Results WBC 8.29 K/ul (4.8-10.8) 04/18/22 07:20 RBC 2.96 M/uL (4.63-6.08) L 04/18/22 07:20 Hgb 9.3 g/dl (14.0-18.0) L 04/18/22 07:20 POC Hgb 12.9 g/dl (14.0-18.0) L 04/17/22 22:11 Hct 28.2 % (40.1-51.0) L 04/18/22 07:20 POC Hct 38 % (42-52) L 04/17/22 22:11 MCV 95.3 fL (80.0-100.0) 04/18/22 07:20 MCH 31.4 pg (25.0-34.0) 04/18/22 07:20 MCHC 33.0 g/dL (32.0-36.0) 04/18/22 07:20 RDW Std Deviation 46.6 fL (36.4-46.3) H 04/18/22 07:20 RDW Coeff of Lulú 13.5 % (11.5-14.5) 04/18/22 07:20 Plt Count 146 K/uL (130-400) 04/18/22 07:20 MPV 9.0 fL (9.4-12.4) L 04/18/22 07:20 Immature Gran % (Auto) 0.6 % 04/18/22 07:20 Neut % (Auto) 80.8 % 04/18/22 07:20 Lymph % (Auto) 11.5 % 04/18/22 07:20 [place] % (Auto) 6.9 % 04/18/22 07:20 Eos % (Auto) 0.0 % 04/18/22 07:20 Baso % (Auto) 0.2 % 04/18/22 07:20 Neut # (Auto) 6.70 K/uL (1.4-6.5) H 04/18/22 07:20 Lymph # (Auto) 0.95 K/uL (1.2-3.4) L 04/18/22 07:20 [place] # (Auto) 0.57 K/uL (0.24-0.82) 04/18/22 07:20 Eos # (Auto) 0.00 K/uL (0-0.50) 04/18/22 07:20 Baso # (Auto) 0.02 K/uL (0-0.2) 04/18/22 07:20 Immature Gran # (Auto) 0.05 K/uL (0.00-0.02) H 04/18/22 07:20 PT 11.1 Seconds (9.0-12.0) 04/17/22 22:01 INR 1.0 (0.9-1.1) 04/17/22 22:01 ABG pH 7.39 (7.35-7.45) 04/18/22 07:20 ABG pCO2 40 mmHg (35-46) 04/18/22 07:20 ABG pO2 89 mmHg (80-95) 04/18/22 07:20 ABG HCO3 24 mmol/L (19-24) 04/18/22 07:20 ABG O2 Saturation 98.4 % (90-95) H 04/18/22 07:20 ABG Base Excess -0.7 mEq/L (-9-1.8) 04/18/22 07:20 Samuel Test Pos (Pos) 04/18/22 07:20 VBG pH 7.37 (7.36-7.41) 04/17/22 22:41 VBG pCO2 52 mmHg (38-50) H 04/17/22 22:41 VBG pO2 27 mmHg 04/17/22 22:41 VBG HCO3 30 mmol/L 04/17/22 22:41 VBG O2 Saturation < 60.0 % 04/17/22 22:41 VBG Base Excess 3.6 mEq/L 04/17/22 22:41 Oxygen Given 3L 04/18/22 07:20 POC Sodium 138 mmol/L (135-144) 04/17/22 22:11 Sodium 135 mmol/L (136-145) L 04/18/22 07:20 POC Potassium 4.2 mmol/L (3.3-5.0) 04/17/22 22:11 Potassium 3.9 mmol/L (3.5-5.1) 04/18/22 07:20 POC Chloride 101 mmol/L (101-112) 04/17/22 22:11 Chloride 105 mmol/L (98-107) 04/18/22 07:20 Carbon Dioxide 25 mmol/L (21-32) 04/18/22 07:20 POC Total CO2 27 mmol/L (24-31) 04/17/22 22:11 Anion Gap 5 (3-11) 04/18/22 07:20 POC Anion Gap 15.0 mmol/L (16-25) L 04/17/22 22:11 POC BUN 29 mg/dl (7-18) H 04/17/22 22:11 BUN 23 mg/dl (6-23) 04/18/22 07:20 Creatinine 0.70 mg/dl (0.6-1.4) D 04/18/22 07:20 POC Creatinine 1.2 mg/dl (0.6-1.3) 04/17/22 22:11 Est Cr Clr Drug Dosing 71.4 ml/min 04/18/22 07:20 Est GFR ( Amer) 113.2 ml/min 04/18/22 07:20 Est GFR (Non-Af Amer) 97.7 ml/min 04/18/22 07:20 BUN/Creatinine Ratio 32.9 (10-20) H 04/18/22 07:20 Glucose 158 mg/dl (70-99(Fasting)) H 04/18/22 07:20 POC Glucose 152 mg/dl (70-99) H 04/18/22 02:19 POC Glucose (other) 84 mg/dl (70-99) 04/17/22 22:11 Lactate 1.2 mmol/L (0.4-2.0) 04/17/22 22:41 Calcium 7.9 mg/dl (8.5-10.1) L 04/18/22 07:20 POC Ioniz Calcium Ugo 1.17 mmol/l (1.12-1.32) 04/17/22 22:11 Phosphorus 3.2 mg/dl (2.5-4.9) 04/17/22 22:01 Magnesium 1.6 mg/dl (1.7-2.4) L 04/18/22 07:20 Total Bilirubin 0.5 mg/dl (0.2-1.0) 04/17/22 22:01 Direct Bilirubin 0.1 mg/dl (0-0.2) 04/17/22 22:01 AST 16 U/L (13-39) 04/17/22 22:01 ALT 21 U/L (7-52) 04/17/22 22:01 Alkaline Phosphatase 132 U/L (34-104) H 04/17/22 22:01 Troponin I High Sens 4.5 pg/ml (0-20) 04/17/22 22:01 Total Protein 7.5 gm/dl (6.0-8.3) 04/17/22 22:01 Albumin 4.1 gm/dl (3.4-5.0) 04/17/22 22: Lipase 16 U/L (11-82) 04/17/22 22:01 Procalcitonin 0.42 ng/ml (0-0.5) 04/17/22 22:01 Urine Color Yellow 04/18/22 00:00 Urine Appearance Clear (Clear) 04/18/22 00:00 Urine pH 6.5 (4.5-7.5) 04/18/22 00:00 Ur Specific [place] 1.021 (1.000-1.030) 04/18/22 00:00 Urine Protein Negative (Negative) 04/18/22 00:00 Urine Glucose (UA) Negative (Negative) 04/18/22 00:00 Urine Ketones Negative (Negative) 04/18/22 00:00 Urine Blood Trace (Negative) H 04/18/22 00:00 Urine Nitrite Negative (Negative) 04/18/22 00:00 Urine Bilirubin Negative (Negative) 04/18/22 00:00 Urine Urobilinogen Negative (Negative) 04/18/22 00:00 Ur Leukocyte Esterase Negative (Negative) 04/18/22 00:00 Urine WBC (Auto) 1-5 /hpf (0-5) 04/18/22 00:00 Urine RBC (Auto) 0-4 /hpf (0-4) 04/18/22 00:00 U Hyaline Cast (Auto) 1-5 /lpf (0-5) 04/18/22 00:00 U Epithel Cells (Auto) 10-20 /lpf (0-5) H 04/18/22 00:00 Urine Bacteria (Auto) Negative (Negative) 04/18/22 00:00 Phenytoin 20.1 mcg/ml (10-20) H 04/18/22 07:20 Adenovirus (PCR) Not Detected (NotDetected) 04/17/22 23:30 B. pertussis DNA (PCR) Not Detected (NotDetected) 04/17/22 23:30 B.parapertussis DNA PCR Not Detected (NotDetected) 04/17/22 23:30 C. pneumoniae DNA (PCR) Not Detected (NotDetected) 04/17/22 23:30 Coronavirus OC43 (PCR) Not Detected (NotDetected) 04/17/22 23:30 Coronavirus HKU1 (PCR) Not Detected (NotDetected) 04/17/22 23:30 Coronavirus 229E (PCR) Not Detected (NotDetected) 04/17/22 23:30 SARS-CoV-2 (PCR) Not Detected (NotDetected) 04/17/22 23:30 Coronavirus NL63 (PCR) Not Detected (NotDetected) 04/17/22 23:30 Human Metapneumovir PCR Not Detected (NotDetected) 04/17/22 23:30 Influenza Type A (PCR) Not Detected (NotDetected) 04/17/22 23:30 Influenza Type B (PCR) Not Detected (NotDetected) 04/17/22 23:30 M. pneumoniae (PCR) Not Detected (NotDetected) 04/17/22 23:30 Parainfluenza 1 (PCR) Not Detected (NotDetected) 04/17/22 23:30 Parainfluenza 2 (PCR) Not Detected (NotDetected) 04/17/22 23:30 Parainfluenza 3 (PCR) Not Detected (NotDetected) 04/17/22 23:30 Parainfluenza 4 (PCR) Not Detected (NotDetected) 04/17/22 23:30 RSV (PCR) Not Detected (NotDetected) 04/17/22 23:30 Entero/Rhino (PCR) Not Detected (NotDetected) 04/17/22 23:30 Blood Type O Positive 04/17/22 22:46 Antibody Screen NEGATIVE 04/17/22 22:46 Impressions Abdomen/Pelvis CT 04/17/22 21:[address] WITH IV CONTRAST CT DOSE: HISTORY: Generalized abdominal pain, fall sepsis TECHNIQUE: Multiaxial CT images of the abdomen and pelvis were performed following the use of intravenous contrast. A dose lowering technique was utilized adhering to the principles of ALARA. COMPARISON STUDY: Abdomen and pelvis CT 12/05/2020. FINDINGS: Compression deformities again noted within the lower thoracic and lumbar spine. These are likely chronic. Old posttraumatic and postoperative changes noted within the right hip. There is an acute nondisplaced fracture within the right acetabulum. This extends to the medial wall the acetabulum and as seen on the acetabular roof. Multiple old, healed right-sided rib fractures. Postoperative changes seen within the right wrist. The liver, gallbladder, spleen, adrenal glands, and pancreas are unremarkable. There is mild heterogeneous enhancement within the kidneys. This may be due to the overlying streak artifact from the patient's arms or scarring. Correlation with urinalysis recommended to exclude the possibility of a pyelonephritis. No hydronephrosis. No retroperitoneal lymphadenopathy or hematoma. Small right pelvic sidewall hematoma from the acetabular fracture. This results in minimal mass effect along the right bladder wall. No bladder wall thickening. Moderate well-formed stool within the colon. Colonic diverticulosis. No evidence for acute diverticulitis. No definite bowel wall thickening or obstruction. Normal appendix. IMPRESSION: 1. Acute nondisplaced right acetabular fracture. There is associated small right pelvic sidewall hematoma with minimal mass effect along the bladder. 2. Multiple compression deformities again noted within the lower thoracic and lumbar spine. These are likely chronic. 3. There is mild heterogeneous enhancement within the kidneys. This may be due to the overlying streak artifact from the patient's arms or scarring. Correlation with urinalysis recommended to exclude the possibility of a pyelonephritis. 4. This report was called/faxed to the emergency department following dictation. ACT 112: Negative or not required by law. Electronically signed by: Ganesh Chen M.D. 04/18/2022 8:[address] 04/17/22 21:[address] DOSE: 1497.88 mGy.cm HISTORY: pain fall TECHNIQUE: Multiaxial CT images of the cervical spine were performed and reformatted in the sagittal and coronal plane without the use of contrast. A dose lowering technique was utilized adhering to the principles of ALARA. COMPARISON: Cervical spine CT 08/12/2020. FINDINGS: No fractures. No subluxation. Prevertebral soft tissues and the C1-C2 interval are intact. No pneumothorax. Opacified mastoid air cells with middle ear effusions and chronic partial erosion of the ossicles. This remains unchanged. Emphysema. Chronic compression deformities noted within the upper thoracic spine. Moderate multilevel degenerative changes again noted. IMPRESSION: No fractures within the cervical spine. Additional findings as described above. ACT 112: Negative or not required by law. Electronically signed by: Ganesh Chen M.D. 04/18/2022 8:04 AM Chest CTA 04/17/22 21:57 CHEST CTA for PULMONARY ARTERIES CT DOSE: HISTORY: hypoxia, sepsis, r/o PE TECHNIQUE: Multiaxial CT images of the chest were performed following the intravenous administration of contrast to evaluate the pulmonary arteries. Maximal intensity projection images were also obtained. A dose lowering technique was utilized adhering to the principles of ALARA. COMPARISON STUDY: Chest CT 01/24/2022. FINDINGS: No evidence for an aortic dissection. The heart is normal in size. No pleural or pericardial effusions. No filling defects within the pulmonary arteries to suggest a pulmonary embolus. Comminuted and mildly displaced right humeral neck fracture is noted. Old, healed right clavicle fracture. There are multiple old right-sided rib fractures. Postoperative changes within the left humerus. Multiple compression deformities within the thoracic spine which are likely chronic. Abdominal structures will be reported on the same day abdomen and pelvis CT. Normal esophagus. The thyroid gland enhances normally. No mediastinal or hilar lymphadenopathy. No pneumothorax. Emphysema. Linear focus of consolidation within the left upper lobe posteriorly favors subsegmental atelectasis. A pneumonia could also have a similar appearance. Right basilar linear densities also consistent with subsegmental atelectasis. Partial mucoid opacification the right lower lobe bronchi. IMPRESSION: 1. No evidence for a pulmonary embolus. 2. Comminuted and mildly displaced right humeral neck fracture. 3. Emphysema. 4. Linear density within the left upper lobe posteriorly favor subsegmental atelectasis. A pneumonia could also have a similar appearance. ACT 112: Negative or not required by law. Electronically signed by: Ganesh Chen M.D. 04/18/2022 7:56 AM Chest X-Ray 04/17/22 21:57 XR chest 1V portable CLINICAL HISTORY: Sepsis TECHNIQUE: Single frontal radiograph of the chest was obtained. Comparison: Comparison is made to chest radiograph 01/23/2022 FINDINGS: No lines and tubes are seen. The aorta is tortuous. The remainder of the cardiomediastinal silhouette is unremarkable. The lungs are clear. No evidence of pleural effusion or pneumothorax. IMPRESSION: No acute chest disease. Please see right shoulder radiograph for findings of humeral fracture. ACT 112: Negative or not required by law. Electronically signed by: Arturo Malave M.D. 04/17/2022 10:[address] 04/17/22 21:[address] DOSE: HISTORY: pain fall TECHNIQUE: Multiaxial CT images of the head were performed without the use of intravenous contrast. Automated exposure control was utilized for this study. A dose lowering technique was utilized adhering to the principles of ALARA. Comparison: Head CT 08/12/2020. Findings: Retention cyst within the right maxillary sinus. Opacified bilateral mastoid air cells, unchanged. The calvarium and skull base are intact. There is no mass, hematoma, midline shift, acute infarct. White matter hypodensity is nonspecific but suggestive of microvascular ischemic change. The ventricles and sulci demonstrate mild age-related involutional changes. Impression: No acute intracranial abnormality. ACT 112: Negative or not required by law. Electronically signed by: Ganesh Chen M.D. 04/18/2022 8:04 AM Hip/Pelvis X-Ray 04/17/22 21:57 XR hip RT 2V w pelvis CLINICAL HISTORY: pain fall TECHNIQUE: 2 views of the right hip and single frontal view of the pelvis were obtained. Comparison: Comparison is made to right hip radiograph 01/24/2022 FINDINGS: Right medullary popeye has been placed. No evidence of acute fracture. Old deformity of the right pubic rami noted. Joint spaces are well-preserved. No soft tissue abnormality is seen. IMPRESSION: No evidence of acute osseous injury. Old healed fractures and right femoral hardware placement noted. ACT 112: Negative or not required by law. Electronically signed by: Arturo Malave M.D. 04/17/2022 10:35 PM Shoulder X-Ray 04/17/22 21:57 XR shoulder RT min 2V routine CLINICAL HISTORY: pain fall TECHNIQUE: 3 views of the right shoulder were obtained. Comparison: Comparison is made to right shoulder radiographs 08/12/2020 FINDINGS: There is an acute fracture of the proximal humerus. Comminuted appearance of the distal clavicle is unchanged from prior exam. Soft tissue swelling is seen about the shoulder. The visualized portions of the lungs are clear. IMPRESSION: There is an acute fracture of the proximal humeral metadiaphysis which does not involve the articular surface, surrounding soft tissue swelling is seen. Old fracture of the distal clavicle is noted. ACT 112: Negative or not required by law. Electronically signed by: Arturo Malave M.D. 04/17/2022 10:[address] 04/18/22 07:[address] DOSE: HISTORY: proximal humerus fracture TECHNIQUE: Multiaxial CT images of the right shoulder were performed and reformatted in the sagittal and coronal plane without the use of contrast. A dose lowering technique was utilized adhering to the principles of ALARA. COMPARISON: Right shoulder radiograph 04/17/2022. FINDINGS: Redemonstration of a comminuted, mildly displaced, and impacted right humeral neck fracture. This is not extend into the humeral head. No dislocation. The fracture demonstrates mild angulation and mild posterior lateral displacement of up to 12 mm. There are old, healed right-sided rib fractures and an old, healed right clavicle fracture. There may be an acute nondisplaced fracture component within the right clavicle. No pneumothorax. The scapula appears intact. IMPRESSION: 1. Redemonstration of the comminuted, mildly displaced, and impacted right humeral neck fracture. No dislocation. 2. Acute on chronic nondisplaced distal right clavicle fracture ACT 112: Negative or not required by law. Electronically signed by: Ganesh Chen M.D. 04/18/2022 8:25 AM
[2022-04-18] MEDS: PIPERACILLIN/TAZOBACTAM 3.375 GM in DEXTROSE 5% 100 ML IV SCH ×2 (12:58→22:32)
[2022-04-18] MEDS: oxyCODONE HCL IR 5 MG TAB (IMMEDIATE RELEASE) PO PRN ×2 (14:19→22:38)
[2022-04-18] MEDS: DOXYCYCLINE HYCLATE 100 MG in DEXTROSE 5% 100 ML IV SCH (16:32)
[2022-04-18] MEDS: ACETAMINOPHEN 325 MG TAB PO PRN (18:37)
[2022-04-19] MEDS: DOXYCYCLINE HYCLATE 100 MG in DEXTROSE 5% 100 ML IV SCH ×2 (03:51→15:21)
[2022-04-19] MEDS: PIPERACILLIN/TAZOBACTAM 3.375 GM in DEXTROSE 5% 100 ML IV SCH ×3 (05:49→20:49)
[2022-04-19] MEDS: oxyCODONE HCL IR 5 MG TAB (IMMEDIATE RELEASE) PO PRN ×3 (06:29→20:52)
--- NOTE | 2022-04-19 06:37 | Orthopedic Progress Note ---
Date of Service April 19, 2022 Assessment & Plan (1) Fracture of proximal humerus: Plan: Patient has a mild to moderately displaced proximal humerus fracture. Discussed case with Dr. Brown, [facility] physician on-call. Recommend sling immobilization. No shoulder motion at this time. Ice the shoulder. Dr Brown will review CT as well (2) Acetabular fracture: Plan: Patient's abdominal CT demonstrated a nondisplaced acetabular wall fracture.Recommend partial weightbearing. We will have Dr. Brown review CT scan as well when he sees the patient. Admission and Anticipated Discharge Date Admission Date: April 18, 2022 Supervising Physician Co-Signing Physician Notes Patient seen and imaging reviewed. Given his extra-articular proximal humerus fracture and current medical comorbidities I would recommend conservative treatment for the time being with nonweightbearing right upper extremity in a simple sling. We will plan to follow him along for clinical improvement as an outpatient. Pertaining to his acetabular fracture I would recommend toe-touch weightbearing on his right lower extremity using a walker. Unfortunately with the right upper extremity also being immobilized he will likely require some type of placement or rehabilitation. No further orthopedic intervention at this time. We will sign off Subjective currently resting in bed, states pain is tolerable. denies numbness, tingling in the arm or leg. Physical Exam Physical Exam: Vital Signs Temp Pulse Pulse Pulse Resp BP BP 04/19/22 03:23 36.9 C 89 18 118/65 04/19/22 00:08 84 04/18/22 23:13 37.0 C 91 H 18 122/67 04/18/22 19:09 37.0 C 89 18 119/69 04/18/22 18:29 88 04/18/22 15:39 37.0 C 94 H 16 100/63 04/18/22 11:25 37.1 C 81 18 93/53 L 04/18/22 07:50 36.7 C 73 18 94/55 L 04/18/22 07:46 76 18 04/18/22 07:22 71 Pulse Ox O2 Del Method O2 Flow Rate 04/19/22 03:23 93 Nasal Cannula 3 04/19/22 00:08 04/18/22 23:13 95 Nasal Cannula 3 04/18/22 19:09 93 Nasal Cannula 3 04/18/22 18:29 04/18/22 15:39 93 Nasal Cannula 3 04/18/22 11:25 91 Room Air 04/18/22 07:50 96 Room Air 04/18/22 07:46 96 Nasal Cannula 3 04/18/22 07:22 Intake and Output 04/18/22 04/18/22 04/19/22 14:59 22:59 06:59 Intake Total 1309.667 / 2467.16 7 645 / 2467.167 512.5 / 2467.167 Output Total 350 / 1825 725 / 1825 750 / 1825 Balance 959.667 / 642.167 -80 / 642.167 -237.5 / 642.167 Intake: IV 1029.667 / 1467.16 7 225 / 1467.167 212.5 / 1467.167 D5w and 1/2Nss 1,000 ml @ 80 533 / 533 mls/hr IV .Q12 H30M [facility] Rx#: [id number] Doxycycline Hy clate 100 mg In 110 / 207.5 97.5 / 207.5 Dextrose 5% 10 0 ml @ 50 mls/hr IV Q12H [facility] Rx #:[id number] Piperacillin/T azobactam 3.375 115 / 230 115 / 230 gm In Dextrose 5% 100 ml @ 28. 75 mls/hr IV Q 8H [facility] Rx#: [id number] Vancomycin HCl 1,250 mg In 496.667 / 496.667 Sodium Chlorid e 0.9% 500 ml @ 200 mls/hr IV NOW ONE Rx#: [id number] Oral 280 / 1000 420 / 1000 300 / 1000 Output: Urine 350 / 1825 725 / 1825 750 / 1825 Other: Weight 49.3 kg 50.7 kg Weight Measureme nt Method Built in [facility] Patient Weight 04/19/22 06:59 Weight 50.7 kg Musculoskeletal: Right shoulder: arm resting in sling, + ecchymosis and swelling noted right shoulder, tenderness about the proximal humerus. Sensation to deltoid is intact. His fingers are mobile with good revit drafter strength. Able to do thumbs up and extend his wrist. No tenderness distally at the elbow or wrist. Distally neurovascular status and sensation intact. Results & Data ([facility]) Vital Signs (Past 12 Hours) Vital Signs Temp Pulse Pulse Resp BP Pulse Ox O2 Del Method 04/19/22 03:23 36.9 C 89 18 118/65 93 Nasal Cannula 04/19/22 00:08 84 04/18/22 23:13 37.0 C 91 H 18 122/67 95 Nasal Cannula 04/18/22 19:09 37.0 C 89 18 119/69 93 Nasal Cannula O2 Flow Rate 04/19/22 03:23 3 04/19/22 00:08 04/18/22 23:13 3 04/18/22 19:09 3 Diagnostic Findings Abdomen/Pelvis CT 04/17/22 21:[address] WITH IV CONTRAST CT DOSE: HISTORY: Generalized abdominal pain, fall sepsis TECHNIQUE: Multiaxial CT images of the abdomen and pelvis were performed following the use of intravenous contrast. A dose lowering technique was utilized adhering to the principles of ALARA. COMPARISON STUDY: Abdomen and pelvis CT 12/05/2020. FINDINGS: Compression deformities again noted within the lower thoracic and lumbar spine. These are likely chronic. Old posttraumatic and postoperative changes noted within the right hip. There is an acute nondisplaced fracture within the right acetabulum. This extends to the medial wall the acetabulum and as seen on the acetabular roof. Multiple old, healed right-sided rib fractures. Postoperative changes seen within the right wrist. The liver, gallbladder, spleen, adrenal glands, and pancreas are unremarkable. There is mild heterogeneous enhancement within the kidneys. This may be due to the overlying streak artifact from the patient's arms or scarring. Correlation with urinalysis recommended to exclude the possibility of a pyelonephritis. No hydronephrosis. No retroperitoneal lymphadenopathy or hematoma. Small right pelvic sidewall hematoma from the acetabular fracture. This results in minimal mass effect along the right bladder wall. No bladder wall thickening. Moderate well-formed stool within the colon. Colonic diverticulosis. No evidence for acute diverticulitis. No definite bowel wall thickening or obstruction. Normal appendix. IMPRESSION: 1. Acute nondisplaced right acetabular fracture. There is associated small right pelvic sidewall hematoma with minimal mass effect along the bladder. 2. Multiple compression deformities again noted within the lower thoracic and lumbar spine. These are likely chronic. 3. There is mild heterogeneous enhancement within the kidneys. This may be due to the overlying streak artifact from the patient's arms or scarring. Correlation with urinalysis recommended to exclude the possibility of a pyelonephritis. 4. This report was called/faxed to the emergency department following dictation. Hip/Pelvis X-Ray 04/17/22 21:57 XR hip RT 2V w pelvis CLINICAL HISTORY: pain fall TECHNIQUE: 2 views of the right hip and single frontal view of the pelvis were obtained. Comparison: Comparison is made to right hip radiograph 01/24/2022 FINDINGS: Right medullary popeye has been placed. No evidence of acute fracture. Old deformity of the right pubic rami noted. Joint spaces are well-preserved. No soft tissue abnormality is seen. IMPRESSION: No evidence of acute osseous injury. Old healed fractures and right femoral hardware placement noted. Shoulder X-Ray 04/17/22 21:57 XR shoulder RT min 2V routine CLINICAL HISTORY: pain fall TECHNIQUE: 3 views of the right shoulder were obtained. Comparison: Comparison is made to right shoulder radiographs 08/12/2020 FINDINGS: There is an acute fracture of the proximal humerus. Comminuted appearance of the distal clavicle is unchanged from prior exam. Soft tissue swelling is seen about the shoulder. The visualized portions of the lungs are clear. IMPRESSION: There is an acute fracture of the proximal humeral metadiaphysis which does not involve the articular surface, surrounding soft tissue swelling is seen. Old fracture of the distal clavicle is noted. Shoulder CT 04/18/22 07:[address] DOSE: HISTORY: proximal humerus fracture TECHNIQUE: Multiaxial CT images of the right shoulder were performed and reformatted in the sagittal and coronal plane without the use of contrast. A dose lowering technique was utilized adhering to the principles of ALARA. COMPARISON: Right shoulder radiograph 04/17/2022. FINDINGS: Redemonstration of a comminuted, mildly displaced, and impacted right humeral neck fracture. This is not extend into the humeral head. No dislocation. The fracture demonstrates mild angulation and mild posterior lateral displacement of up to 12 mm. There are old, healed right-sided rib fractures and an old, healed right clavicle fracture. There may be an acute nondisplaced fracture component within the right clavicle. No pneumothorax. The scapula appears intact. IMPRESSION: 1. Redemonstration of the comminuted, mildly displaced, and impacted right humeral neck fracture. No dislocation. 2. Acute on chronic nondisplaced distal right clavicle fracture ACT 112: Negative or not required by law.
[2022-04-19 06:52] LABS: Basophils # (auto) 0.05 K/uL (0-0.2); Basophils % (auto) 0.5 %; Eosinophils # (auto) 0.15 K/uL (0-0.50); Eosinophils % (auto) 1.6 %; Hematocrit (blood only) 31.2 % (40.1-51.0); Hemoglobin 10.3 g/dl (14.0-18.0); Immature Granulocytes # (auto) 0.06 K/uL (0.00-0.02); Immature Granulocytes % (auto) 0.6 %; Lymphocytes # (auto) 1.78 K/uL (1.2-3.4); Lymphocytes % (auto) 18.5 %; Mean Corpuscular Hemoglobin 31.6 pg (25.0-34.0); Mean Corpuscular Volume 95.7 fL (80.0-100.0); Mean Platelet Volume 9.7 fL (9.4-12.4); Monocytes # (auto) 0.96 K/uL (0.24-0.82); Neutrophils # (auto) 6.64 K/uL (1.4-6.5); Neutrophils % (auto) 68.8 %; Platelet Count 171 K/uL (130-400); RDW Coefficient of Variation 13.2 % (11.5-14.5); RDW Standard Deviation 46.9 fL (36.4-46.3); Red Blood Count 3.26 M/uL (4.63-6.08); White Blood Count 9.64 K/ul (4.8-10.8)
[2022-04-19 07:19] LABS: Calcium 8.3 mg/dl (8.5-10.1); Creatinine Clr Calc Pharmacy 65.1 ml/min; Est GFR (African American) 107.7 ml/min; Est GFR (Non-African American) 92.9 ml/min; Potassium 4.3 mmol/L (3.5-5.1)
[2022-04-19] MEDS: HEPARIN SOD 5,000 UNIT/0.5 ML VIAL SQ SCH ×2 (07:30→20:53)
[2022-04-19] MEDS: ASPIRIN 81 MG ECTAB PO SCH ×2 (07:30→20:55)
[2022-04-19] MEDS: PHENYTOIN SODIUM ER 100 MG CAP PO SCH (07:30)
--- NOTE | 2022-04-19 11:19 | Hospitalist Progress Note ---
Date of Service April 19, 2022 Assessment & Plan (1) Fracture of proximal humerus: (2) Fracture, intertrochanteric, right femur: Plan: Presents after a mechanical fall from boarding home History of repeated falls in the past as well due to ambulatory dysfunction. CT abdomen and pelvis shows acute nondisplaced right acetabular fracture. Associated a small right pelvic sidewall hematoma with minimal mass-effect along the bladder. Patient is voiding well by himself. Shoulder CT shows commuted mildly displaced and impacted humeral neck fracture. Acute on chronic nondisplaced right clavicle fracture Plan; Continue pain control with Tylenol and oxycodone. Orthopedic on board; recommend sling immobilization for fracture of proximal humerus. Recommend partial weightbearing for nondisplaced acetabular wall fracture. -PT OT consulted (3) Emphysema/COPD: (4) Acute respiratory failure with hypoxia: (5) Pneumonia: Plan: Was hypoxic with O2 sat of 88% on presentation; in room air shortly after. CT chest shows linear density within left upper lobe posteriorly. Emphysema present Received dose of steroid on admission as well. Plan; - Currently on Zosyn and Vanco and doxycycline. Vanco discontinued as MRSA was negative. Continue on Zosyn and doxycycline. Start him on Spiriva. -Will need pulmonology follow-up as outpatient. Monitor oxygen saturation; O2 goal 88 to 92% Not on any inhalers at home; no wheezes on examination. 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 Has admissions in the past due to Dilantin toxicity. Serum Dilantin on presentation 26; 20 today Plan; Started on Dilantin 100 mg once daily from 04/19 as per neurology recommendation. Need to have trough Dilantin level checked in 1 week. Follow- up with neurology as outpatient in 3 to 4 weeks. Discussed goals of care; DNR/DNI. Heparin for DVT prophylaxis. Admission and Anticipated Discharge Date Admission Date: April 18, 2022 Subjective Patient seen and examined at bedside. Patient is comfortably lying in the bed; not in any distress. He reports some pain on his arm and pain on movement of his right hip. Review of Systems Review of Systems: All systems reviewed & are unremarkable except as noted in Subjective Physical Exam Physical Exam: Constitutional: Awake, alert orient x3; has dysarthria Head: Normocephalic, Atraumatic Eyes: PERRL, conjunctivae normal, anicteric sclerae ENMT: external ear and nose normal, oropharynx normal Neck: trachea midline, no thyromegaly normal visual inspection Respiratory: normal respiratory effort, lungs clear to auscultation, no wheeze, rales, rhonchi. Normal insp/exp effort, no accessory muscle use Cardiovascular: RRR, no murmur, no edema Vessels: no JVD or carotid bruit Chest: normal inspection of chest Abdomen: normal bowel sounds, soft, nontender, no hepatosplenomegaly Musculoskeletal: Tenderness on right arm. Painful ROM of right hip. Skin: no rashes, warm and dry normal turgor Neurologic: Awake alert oriented x3. Dysarthria present. 5/5 strength in bilateral upper extremity. 4/5 bilaterally in lower extremities. Psychiatric: A+Ox3, euthymic affect Lymphatic: no cervical or axillary lymphadenopathy : deferred Results & Data Results & Data ([facility]) Vital Signs (Past 12 Hours) Vital Signs Temp Pulse Pulse Resp BP Pulse Ox O2 Del Method 04/19/22 08:45 Nasal Cannula 04/19/22 07:17 88 04/19/22 03:23 36.9 C 89 18 118/65 93 Nasal Cannula 04/19/22 00:08 84 O2 Flow Rate 04/19/22 08:45 3 04/19/22 07:17 04/19/22 03:23 3 04/19/22 00:08 Laboratory Results Laboratory Results WBC 9.64 K/ul (4.8-10.8) 04/19/22 06:24 RBC 3.26 M/uL (4.63-6.08) L 04/19/22 06:24 Hgb 10.3 g/dl (14.0-18.0) L 04/19/22 06:24 POC Hgb 12.9 g/dl (14.0-18.0) L 04/17/22 22:11 Hct 31.2 % (40.1-51.0) L 04/19/22 06:24 POC Hct 38 % (42-52) L 04/17/22 22:11 MCV 95.7 fL (80.0-100.0) 04/19/22 06:24 MCH 31.6 pg (25.0-34.0) 04/19/22 06:24 MCHC 33.0 g/dL (32.0-36.0) 04/19/22 06:24 RDW Std Deviation 46.9 fL (36.4-46.3) H 04/19/22 06:24 RDW Coeff of Lulú 13.2 % (11.5-14.5) 04/19/22 06:24 Plt Count 171 K/uL (130-400) 04/19/22 06:24 MPV 9.7 fL (9.4-12.4) 04/19/22 06:24 Immature Gran % (Auto) 0.6 % 04/19/22 06:24 Neut % (Auto) 68.8 % 04/19/22 06:24 Lymph % (Auto) 18.5 % 04/19/22 06:24 Edwards % (Auto) 10.0 % 04/19/22 06:24 Eos % (Auto) 1.6 % 04/19/22 06:24 Baso % (Auto) 0.5 % 04/19/22 06:24 Neut # (Auto) 6.64 K/uL (1.4-6.5) H 04/19/22 06:24 Lymph # (Auto) 1.78 K/uL (1.2-3.4) 04/19/22 06:24 Edwards # (Auto) 0.96 K/uL (0.24-0.82) H 04/19/22 06:24 Eos # (Auto) 0.15 K/uL (0-0.50) 04/19/22 06:24 Baso # (Auto) 0.05 K/uL (0-0.2) 04/19/22 06:24 Immature Gran # (Auto) 0.06 K/uL (0.00-0.02) H 04/19/22 06:24 PT 11.1 Seconds (9.0-12.0) 04/17/22 22:01 INR 1.0 (0.9-1.1) 04/17/22 22:01 ABG pH 7.39 (7.35-7.45) 04/18/22 07:20 ABG pCO2 40 mmHg (35-46) 04/18/22 07:20 ABG pO2 89 mmHg (80-95) 04/18/22 07:20 ABG HCO3 24 mmol/L (19-24) 04/18/22 07:20 ABG O2 Saturation 98.4 % (90-95) H 04/18/22 07:20 ABG Base Excess -0.7 mEq/L (-9-1.8) 04/18/22 07:20 Samuel Test Pos (Pos) 04/18/22 07:20 VBG pH 7.37 (7.36-7.41) 04/17/22 22:41 VBG pCO2 52 mmHg (38-50) H 04/17/22 22:41 VBG pO2 27 mmHg 04/17/22 22:41 VBG HCO3 30 mmol/L 04/17/22 22:41 VBG O2 Saturation < 60.0 % 04/17/22 22:41 VBG Base Excess 3.6 mEq/L 04/17/22 22:41 Oxygen Given 3L 04/18/22 07:20 POC Sodium 138 mmol/L (135-144) 04/17/22 22:11 Sodium 133 mmol/L (136-145) L 04/19/22 06:24 POC Potassium 4.2 mmol/L (3.3-5.0) 04/17/22 22:11 Potassium 4.3 mmol/L (3.5-5.1) 04/19/22 06:24 POC Chloride 101 mmol/L (101-112) 04/17/22 22:11 Chloride 101 mmol/L (98-107) 04/19/22 06:24 Carbon Dioxide 26 mmol/L (21-32) 04/19/22 06:24 POC Total CO2 27 mmol/L (24-31) 04/17/22 22:11 Anion Gap 6 (3-11) 04/19/22 06:24 POC Anion Gap 15.0 mmol/L (16-25) L 04/17/22 22:11 POC BUN 29 mg/dl (7-18) H 04/17/22 22:11 BUN 30 mg/dl (6-23) H 04/19/22 06:24 Creatinine 0.79 mg/dl (0.6-1.4) 04/19/22 06:24 POC Creatinine 1.2 mg/dl (0.6-1.3) 04/17/22 22:11 Est Cr Clr Drug Dosing 65.1 ml/min 04/19/22 06:24 Est GFR ( Amer) 107.7 ml/min 04/19/22 06:24 Est GFR (Non-Af Amer) 92.9 ml/min 04/19/22 06:24 BUN/Creatinine Ratio 38.0 (10-20) H 04/19/22 06:24 Glucose 100 mg/dl (70-99(Fasting)) H 04/19/22 06:24 POC Glucose 152 mg/dl (70-99) H 04/18/22 02:19 POC Glucose (other) 84 mg/dl (70-99) 04/17/22 22:11 Lactate 1.2 mmol/L (0.4-2.0) 04/17/22 22:41 Calcium 8.3 mg/dl (8.5-10.1) L 04/19/22 06:24 POC Ioniz Calcium Ugo 1.17 mmol/l (1.12-1.32) 04/17/22 22:11 Phosphorus 3.2 mg/dl (2.5-4.9) 04/17/22 22:01 Magnesium 1.6 mg/dl (1.7-2.4) L 04/18/22 07:20 Total Bilirubin 0.5 mg/dl (0.2-1.0) 04/17/22 22:01 Direct Bilirubin 0.1 mg/dl (0-0.2) 04/17/22 22:01 AST 16 U/L (13-39) 04/17/22 22:01 ALT 21 U/L (7-52) 04/17/22 22:01 Alkaline Phosphatase 132 U/L (34-104) H 04/17/22 22:01 Troponin I High Sens 4.5 pg/ml (0-20) 04/17/22 22:01 Total Protein 7.5 gm/dl (6.0-8.3) 04/17/22 22:01 Albumin 4.1 gm/dl (3.4-5.0) 04/17/22 22:01 Lipase 16 U/L (11-82) 04/17/22 22:01 Procalcitonin 0.42 ng/ml (0-0.5) 04/17/22 22:01 Urine Color Yellow 04/18/22 00:00 Urine Appearance Clear (Clear) 04/18/22 00:00 Urine pH 6.5 (4.5-7.5) 04/18/22 00:00 Ur Specific [place] 1.021 (1.000-1.030) 04/18/22 00:00 Urine Protein Negative (Negative) 04/18/22 00:00 Urine Glucose (UA) Negative (Negative) 04/18/22 00:00 Urine Ketones Negative (Negative) 04/18/22 00:00 Urine Blood Trace (Negative) H 04/18/22 00:00 Urine Nitrite Negative (Negative) 04/18/22 00:00 Urine Bilirubin Negative (Negative) 04/18/22 00:00 Urine Urobilinogen Negative (Negative) 04/18/22 00:00 Ur Leukocyte Esterase Negative (Negative) 04/18/22 00:00 Urine WBC (Auto) 1-5 /hpf (0-5) 04/18/22 00:00 Urine RBC (Auto) 0-4 /hpf (0-4) 04/18/22 00:00 U Hyaline Cast (Auto) 1-5 /lpf (0-5) 04/18/22 00:00 U Epithel Cells (Auto) 10-20 /lpf (0-5) H 04/18/22 00:00 Urine Bacteria (Auto) Negative (Negative) 04/18/22 00:00 Nasal Screen MRSA (PCR) Negative (Negative) 04/18/22 11:15 Phenytoin 20.1 mcg/ml (10-20) H 04/18/22 07:20 Adenovirus (PCR) Not Detected (NotDetected) 04/17/22 23:30 B. pertussis DNA (PCR) Not Detected (NotDetected) 04/17/22 23:30 B.parapertussis DNA PCR Not Detected (NotDetected) 04/17/22 23:30 C. pneumoniae DNA (PCR) Not Detected (NotDetected) 04/17/22 23:30 Coronavirus OC43 (PCR) Not Detected (NotDetected) 04/17/22 23:30 Coronavirus HKU1 (PCR) Not Detected (NotDetected) 04/17/22 23:30 Coronavirus 229E (PCR) Not Detected (NotDetected) 04/17/22 23:30 SARS-CoV-2 (PCR) Not Detected (NotDetected) 04/17/22 23:30 Coronavirus NL63 (PCR) Not Detected (NotDetected) 04/17/22 23:30 Human Metapneumovir PCR Not Detected (NotDetected) 04/17/22 23:30 Influenza Type A (PCR) Not Detected (NotDetected) 04/17/22 23:30 Influenza Type B (PCR) Not Detected (NotDetected) 04/17/22 23:30 M. pneumoniae (PCR) Not Detected (NotDetected) 04/17/22 23:30 Parainfluenza 1 (PCR) Not Detected (NotDetected) 04/17/22 23:30 Parainfluenza 2 (PCR) Not Detected (NotDetected) 04/17/22 23:30 Parainfluenza 3 (PCR) Not Detected (NotDetected) 04/17/22 23:30 Parainfluenza 4 (PCR) Not Detected (NotDetected) 04/17/22 23:30 RSV (PCR) Not Detected (NotDetected) 04/17/22 23:30 Entero/Rhino (PCR) Not Detected (NotDetected) 04/17/22 23:30 Blood Type O Positive 04/17/22 22:46 Antibody Screen NEGATIVE 04/17/22 22:46 Impressions Abdomen/Pelvis CT 04/17/22 21:[address] WITH IV CONTRAST CT DOSE: HISTORY: Generalized abdominal pain, fall sepsis TECHNIQUE: Multiaxial CT images of the abdomen and pelvis were performed following the use of intravenous contrast. A dose lowering technique was utilized adhering to the principles of ALARA. COMPARISON STUDY: Abdomen and pelvis CT 12/05/2020. FINDINGS: Compression deformities again noted within the lower thoracic and lumbar spine. These are likely chronic. Old posttraumatic and postoperative changes noted within the right hip. There is an acute nondisplaced fracture within the right acetabulum. This extends to the medial wall the acetabulum and as seen on the acetabular roof. Multiple old, healed right-sided rib fractures. Postoperative changes seen within the right wrist. The liver, gallbladder, spleen, adrenal glands, and pancreas are unremarkable. There is mild heterogeneous enhancement within the kidneys. This may be due to the overlying streak artifact from the patient's arms or scarring. Correlation with urinalysis recommended to exclude the possibility of a pyelonephritis. No hydronephrosis. No retroperitoneal lymphadenopathy or hematoma. Small right pelvic sidewall hematoma from the acetabular fracture. This results in minimal mass effect along the right bladder wall. No bladder wall thickening. Moderate well-formed stool within the colon. Colonic diverticulosis. No evidence for acute diverticulitis. No definite bowel wall thickening or obstruction. Normal appendix. IMPRESSION: 1. Acute nondisplaced right acetabular fracture. There is associated small right pelvic sidewall hematoma with minimal mass effect along the bladder. 2. Multiple compression deformities again noted within the lower thoracic and lumbar spine. These are likely chronic. 3. There is mild heterogeneous enhancement within the kidneys. This may be due to the overlying streak artifact from the patient's arms or scarring. Correlation with urinalysis recommended to exclude the possibility of a pyelonephritis. 4. This report was called/faxed to the emergency department following dictation. ACT 112: Negative or not required by law. Electronically signed by: Ganesh Chen M.D. 04/18/2022 8:[address] 04/17/22 21:[address] DOSE: 1497.88 mGy.cm HISTORY: pain fall TECHNIQUE: Multiaxial CT images of the cervical spine were performed and reformatted in the sagittal and coronal plane without the use of contrast. A dose lowering technique was utilized adhering to the principles of ALARA. COMPARISON: Cervical spine CT 08/12/2020. FINDINGS: No fractures. No subluxation. Prevertebral soft tissues and the C1-C2 interval are intact. No pneumothorax. Opacified mastoid air cells with middle ear effusions and chronic partial erosion of the ossicles. This remains unchanged. Emphysema. Chronic compression deformities noted within the upper thoracic spine. Moderate multilevel degenerative changes again noted. IMPRESSION: No fractures within the cervical spine. Additional findings as described above. ACT 112: Negative or not required by law. Electronically signed by: Ganesh Chen M.D. 04/18/2022 8:04 AM Chest CTA 04/17/22 21:57 CHEST CTA for PULMONARY ARTERIES CT DOSE: HISTORY: hypoxia, sepsis, r/o PE TECHNIQUE: Multiaxial CT images of the chest were performed following the intravenous administration of contrast to evaluate the pulmonary arteries. Maximal intensity projection images were also obtained. A dose lowering technique was utilized adhering to the principles of ALARA. COMPARISON STUDY: Chest CT 01/24/2022. FINDINGS: No evidence for an aortic dissection. The heart is normal in size. No pleural or pericardial effusions. No filling defects within the pulmonary arteries to suggest a pulmonary embolus. Comminuted and mildly displaced right humeral neck fracture is noted. Old, healed right clavicle fracture. There are multiple old right-sided rib fractures. Postoperative changes within the left humerus. Multiple compression deformities within the thoracic spine which are likely chronic. Abdominal structures will be reported on the same day abdomen and pelvis CT. Normal esophagus. The thyroid gland enhances normally. No mediastinal or hilar lymphadenopathy. No pneumothorax. Emphysema. Linear focus of consolidation within the left upper lobe posteriorly favors subsegmental atelectasis. A pneumonia could also have a similar appearance. Right basilar linear densities also consistent with subsegmental atelectasis. Partial mucoid opacification the right lower lobe bronchi. IMPRESSION: 1. No evidence for a pulmonary embolus. 2. Comminuted and mildly displaced right humeral neck fracture. 3. Emphysema. 4. Linear density within the left upper lobe posteriorly favor subsegmental atelectasis. A pneumonia could also have a similar appearance. ACT 112: Negative or not required by law. Electronically signed by: Ganesh Chen M.D. 04/18/2022 7:56 AM Chest X-Ray 04/17/22 21:57 XR chest 1V portable CLINICAL HISTORY: Sepsis TECHNIQUE: Single frontal radiograph of the chest was obtained. Comparison: Comparison is made to chest radiograph 01/23/2022 FINDINGS: No lines and tubes are seen. The aorta is tortuous. The remainder of the cardiomediastinal silhouette is unremarkable. The lungs are clear. No evidence of pleural effusion or pneumothorax. IMPRESSION: No acute chest disease. Please see right shoulder radiograph for findings of humeral fracture. ACT 112: Negative or not required by law. Electronically signed by: Arturo Malave M.D. 04/17/2022 10:[address] 04/17/22 21:[address] DOSE: HISTORY: pain fall TECHNIQUE: Multiaxial CT images of the head were performed without the use of intravenous contrast. Automated exposure control was utilized for this study. A dose lowering technique was utilized adhering to the principles of ALARA. Comparison: Head CT 08/12/2020. Findings: Retention cyst within the right maxillary sinus. Opacified bilateral mastoid air cells, unchanged. The calvarium and skull base are intact. There is no mass, hematoma, midline shift, acute infarct. White matter hypodensity is nonspecific but suggestive of microvascular ischemic change. The ventricles and sulci demonstrate mild age-related involutional changes. Impression: No acute intracranial abnormality. ACT 112: Negative or not required by law. Electronically signed by: Ganesh Chen M.D. 04/18/2022 8:04 AM Hip/Pelvis X-Ray 04/17/22 21:57 XR hip RT 2V w pelvis CLINICAL HISTORY: pain fall TECHNIQUE: 2 views of the right hip and single frontal view of the pelvis were obtained. Comparison: Comparison is made to right hip radiograph 01/24/2022 FINDINGS: Right medullary popeye has been placed. No evidence of acute fracture. Old deformity of the right pubic rami noted. Joint spaces are well-preserved. No soft tissue abnormality is seen. IMPRESSION: No evidence of acute osseous injury. Old healed fractures and right femoral hardware placement noted. ACT 112: Negative or not required by law. Electronically signed by: Arturo Malave M.D. 04/17/2022 10:35 PM Shoulder X-Ray 04/17/22 21:57 XR shoulder RT min 2V routine CLINICAL HISTORY: pain fall TECHNIQUE: 3 views of the right shoulder were obtained. Comparison: Comparison is made to right shoulder radiographs 08/12/2020 FINDINGS: There is an acute fracture of the proximal humerus. Comminuted appearance of the distal clavicle is unchanged from prior exam. Soft tissue swelling is seen about the shoulder. The visualized portions of the lungs are clear. IMPRESSION: There is an acute fracture of the proximal humeral metadiaphysis which does not involve the articular surface, surrounding soft tissue swelling is seen. Old fracture of the distal clavicle is noted. ACT 112: Negative or not required by law. Electronically signed by: Arturo Malave M.D. 04/17/2022 10:[address] 04/18/22 07:[address] DOSE: HISTORY: proximal humerus fracture TECHNIQUE: Multiaxial CT images of the right shoulder were performed and reformatted in the sagittal and coronal plane without the use of contrast. A dose lowering technique was utilized adhering to the principles of ALARA. COMPARISON: Right shoulder radiograph 04/17/2022. FINDINGS: Redemonstration of a comminuted, mildly displaced, and impacted right humeral neck fracture. This is not extend into the humeral head. No dislocation. The fracture demonstrates mild angulation and mild posterior lateral displacement of up to 12 mm. There are old, healed right-sided rib fractures and an old, healed right clavicle fracture. There may be an acute nondisplaced fracture component within the right clavicle. No pneumothorax. The scapula appears intact. IMPRESSION: 1. Redemonstration of the comminuted, mildly displaced, and impacted right humeral neck fracture. No dislocation. 2. Acute on chronic nondisplaced distal right clavicle fracture ACT 112: Negative or not required by law. Electronically signed by: Ganesh Chen M.D. 04/18/2022 8:25 AM
[2022-04-19] MEDS: ALBUT/IPRATROP 3MG/0.5MG NEB 3 ML VIAL NEB SCH ×2 (11:43→19:06)
[2022-04-19] MEDS: FLUTICASONE/VILANTEROL 100/25MCG 14 PUFFS/INHALER INH SCH (12:20)
[2022-04-19] MEDS ORDERED: HYDROmorphone INJ 0.5 MG/0.5 ML SYR IV STA (23:33)
[2022-04-20] MEDS: ALBUT/IPRATROP 3MG/0.5MG NEB 3 ML VIAL NEB SCH ×4 (00:23→20:11)
[2022-04-20] MEDS: DOXYCYCLINE HYCLATE 100 MG in DEXTROSE 5% 100 ML IV SCH (04:26)
[2022-04-20] MEDS: PIPERACILLIN/TAZOBACTAM 3.375 GM in DEXTROSE 5% 100 ML IV SCH ×2 (06:27→12:04)
[2022-04-20 07:59] LABS: Basophils # (auto) 0.05 K/uL (0-0.2); Basophils % (auto) 0.5 %; Eosinophils # (auto) 0.37 K/uL (0-0.50); Eosinophils % (auto) 3.6 %; Hematocrit (blood only) 31.1 % (40.1-51.0); Hemoglobin 10.1 g/dl (14.0-18.0); Immature Granulocytes # (auto) 0.06 K/uL (0.00-0.02); Immature Granulocytes % (auto) 0.6 %; Lymphocytes # (auto) 1.52 K/uL (1.2-3.4); Lymphocytes % (auto) 14.9 %; Mean Corpuscular Hemoglobin 31.6 pg (25.0-34.0); Mean Corpuscular Hgb Conc 32.5 g/dL (32.0-36.0); Mean Corpuscular Volume 97.2 fL (80.0-100.0); Mean Platelet Volume 9.8 fL (9.4-12.4); Monocytes # (auto) 1.04 K/uL (0.24-0.82); Monocytes % (auto) 10.2 %; Neutrophils # (auto) 7.18 K/uL (1.4-6.5); Neutrophils % (auto) 70.2 %; Platelet Count 199 K/uL (130-400); RDW Coefficient of Variation 13.4 % (11.5-14.5); White Blood Count 10.22 K/ul (4.8-10.8)
[2022-04-20 08:27] LABS: BUN Creatinine Ratio 35.7 (10-20); Calcium 8.5 mg/dl (8.5-10.1); Creatinine Clr Calc Pharmacy 59.3 ml/min; Est GFR (Non-African American) 90.6 ml/min; Potassium 4.3 mmol/L (3.5-5.1)
[2022-04-20] MEDS: ASPIRIN 81 MG ECTAB PO SCH ×2 (08:38→20:47)
[2022-04-20] MEDS: PHENYTOIN SODIUM ER 100 MG CAP PO SCH (08:38)
[2022-04-20] MEDS: FLUTICASONE/VILANTEROL 100/25MCG 14 PUFFS/INHALER INH SCH (08:38)
--- NOTE | 2022-04-20 09:02 | Neurology Progress Note ---
Date of Service April 20, 2022 Assessment & Plan (1) Elevated Dilantin level: (2) Traumatic brain injury: (3) Seizures: (4) Fracture of proximal humerus: Plan Patient has a history of traumatic brain injury with resulting seizure disorder, fairly well controlled over the years on Dilantin. He has had a few admissions in the past for Dilantin toxicity. The admission Dilantin level 04/17 was elevated at 26.8. On the morning of April 18, the level was 20. He has had no seizures since admission. The patient had a fall and fractured his right proximal humerus and clavicle. Dilantin toxicity can give you a worse balance, as well as other findings. He has no nystagmus, GI symptoms, or tremor. Fever and dehydration could of made the Dilantin level worse. He seems back to his baseline neurologically. He has chonic dysarthria, gait disturbance, and right leg spasticity as a result of his past head trauma. Recommendations: 1. Continue Dilantin at 100 milligrams qAM. 3. Check a trough Dilantin level later this week (04/24). 4. follow-up in Neurology with PA in 3-4 weeks -this could be a tele health if he can be connected to the portal. 5. I have no further neurologic testing or treatment recommendations to make at this time. Please contact me if I can be of further assistance on this case. Overall I spent a total of 25 minutes with this case including review of records, direct evaluation the patient at bedside, and discussion of the case with the patient and RN at bedside and Dr. Villarreal, including differential diagnosis and treatment options. Admission and Anticipated Discharge Date Admission Date: April 18, 2022 Subjective patient continues to be feeling fairly well with no pain or headache except the site of his fracture. He has no dizziness or vision issues. Nursing reports no further seizures. He is continent of urine Blood pressure is 109/74 and he is afebrile. Results & Data ([facility]) Vital Signs (Past 12 Hours) Vital Signs Temp Pulse Pulse Pulse Resp BP Pulse Ox 04/20/22 07:39 36.8 C 89 18 109/74 95 04/20/22 07:35 87 04/20/22 07:12 85 18 93 04/20/22 04:00 36.7 C 94 H 18 149/66 H 92 04/20/22 02:36 91 H 04/20/22 00:24 37.1 C 99 H 20 131/72 93 04/19/22 21:08 O2 Del Method O2 Flow Rate 04/20/22 07:39 Nasal Cannula 2 04/20/22 07:35 04/20/22 07:12 Nasal Cannula 2 04/20/22 04:00 Room Air 04/20/22 02:36 04/20/22 00:24 Nasal Cannula 2 04/19/22 21:08 Nasal Cannula 3 Exam (Neuro) Physical Exam: He is awake and alert. Speech is dysarthric as before. Extraocular eye muscles are intact without nystagmus and there is no facial droop. leg strength seems symmetrical and he can move his feet. He can move his hands well bilaterally and has no abnormal involuntary movements. PG Care Time/CCT Total # of Minutes Spent Total Time Spent with Patient: Total time spent is greater than 50% in coordination of care (as documented) at patient's floor/unit and/or counseling patient: Coding Level of Care Code 58371 Subseq Hosp Care Lvl 2 Diagnoses Elevated Dilantin level R78.89 Traumatic brain injury S06.9X9A Seizures R56.9 Fracture of proximal humerus S42.209A Time Spent (min) 25
[2022-04-20] MEDS: HEPARIN SOD 5,000 UNIT/0.5 ML VIAL SQ SCH ×2 (09:18→20:47)
--- NOTE | 2022-04-20 12:05 | Hospitalist Progress Note ---
Date of Service April 20, 2022 Assessment & Plan (1) Fracture of proximal humerus: (2) Fracture, intertrochanteric, right femur: Plan: Presents after a mechanical fall from boarding home History of repeated falls in the past as well due to ambulatory dysfunction. CT abdomen and pelvis shows acute nondisplaced right acetabular fracture. Associated a small right pelvic sidewall hematoma with minimal mass-effect along the bladder. Patient is voiding well by himself. Shoulder CT shows commuted mildly displaced and impacted humeral neck fracture. Acute on chronic nondisplaced right clavicle fracture Plan; Continue pain control with Tylenol and oxycodone. Orthopedic on board; recommend sling immobilization for fracture of proximal humerus. Recommend partial weightbearing for nondisplaced acetabular wall fracture. - PT OT consulted; will most likely need rehab. rehabilitation center manager on board. (3) Emphysema/COPD: (4) Acute respiratory failure with hypoxia: (5) Pneumonia: Plan: Was hypoxic with O2 sat of 88% on presentation; on 2 L/min presently CT chest shows linear density within left upper lobe posteriorly. Emphysema present Received dose of steroid on admission as well. Plan; -Was placed on Zosyn and vancomycin and doxycycline. De-escalate to ceftriaxone and doxycycline; will provide total of 5 days of antibiotic. Vancomycin DC'd as MRSA is negative. -Currently on duo nebs every 6 hours; hypertonic saline added for airway clearance. -Started on Breo. We will continue Breo, add Spiriva and provide albuterol as needed. Not on any inhalers at home. -Will need pulmonology follow-up as outpatient. 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 Has admissions in the past due to Dilantin toxicity. Serum Dilantin on presentation 26; was 20 on repeat check Plan; Started on Dilantin 100 mg once daily from 04/19 as per neurology recommendation. Need to have trough Dilantin level checked in 04/24. Follow-up with neurology as outpatient in 3 to 4 weeks. Will obtain trough level if he continues to be hospitalized here. Discussed goals of care; DNR/DNI. Heparin for DVT prophylaxis. Admission and Anticipated Discharge Date Admission Date: April 18, 2022 Subjective Patient seen and examined at bedside. Is comfortably lying in the bed. Complains of pain at the fracture site; pain is well controlled on current regimen. Review of Systems Review of Systems: All systems reviewed & are unremarkable except as noted in Subjective Physical Exam Physical Exam: Constitutional: Awake, alert orient x3; has dysarthria Respiratory: normal respiratory effort, lungs clear to auscultation, no wheeze, rales, rhonchi. Normal insp/exp effort, no accessory muscle use Cardiovascular: RRR, no murmur, no edema Vessels: no JVD or carotid bruit Chest: b/l wheeze present; rhonchi present Abdomen: normal bowel sounds, soft, nontender, no hepatosplenomegaly Musculoskeletal: Deformity, ecchymosis present on right arm. ROM painful on right hip. tenderness present on palpation. Skin: no rashes, warm and dry normal turgor Neurologic: Awake alert oriented x3. Dysarthria present. 5/5 strength in bilateral upper extremity. 4/5 bilaterally in lower extremities. Psychiatric: A+Ox3, euthymic affect Lymphatic: no cervical or axillary lymphadenopathy : deferred Results & Data Results & Data ([facility]) Vital Signs (Past 12 Hours) Vital Signs Temp Pulse Pulse Pulse Resp BP Pulse Ox 04/20/22 10:56 36.7 C 89 20 109/66 94 04/20/22 08:10 04/20/22 07:39 36.8 C 89 18 109/74 95 04/20/22 07:35 87 04/20/22 07:12 85 18 93 04/20/22 04:00 36.7 C 94 H 18 149/66 H 92 04/20/22 02:36 91 H 04/20/22 00:24 37.1 C 99 H 20 131/72 93 O2 Del Method O2 Flow Rate 04/20/22 10:56 Nasal Cannula 2 04/20/22 08:10 Nasal Cannula 3 04/20/22 07:39 Nasal Cannula 2 04/20/22 07:35 04/20/22 07:12 Nasal Cannula 2 04/20/22 04:00 Room Air 04/20/22 02:36 04/20/22 00:24 Nasal Cannula 2 Laboratory Results Laboratory Results WBC 10.22 K/ul (4.8-10.8) 04/20/22 05:42 RBC 3.20 M/uL (4.63-6.08) L 04/20/22 05:42 Hgb 10.1 g/dl (14.0-18.0) L 04/20/22 05:42 POC Hgb 12.9 g/dl (14.0-18.0) L 04/17/22 22:11 Hct 31.1 % (40.1-51.0) L 04/20/22 05:42 POC Hct 38 % (42-52) L 04/17/22 22:11 MCV 97.2 fL (80.0-100.0) 04/20/22 05:42 MCH 31.6 pg (25.0-34.0) 04/20/22 05:42 MCHC 32.5 g/dL (32.0-36.0) 04/20/22 05:42 RDW Std Deviation 48.0 fL (36.4-46.3) H 04/20/22 05:42 RDW Coeff of Lulú 13.4 % (11.5-14.5) 04/20/22 05:42 Plt Count 199 K/uL (130-400) 04/20/22 05:42 MPV 9.8 fL (9.4-12.4) 04/20/22 05:42 Immature Gran % (Auto) 0.6 % 04/20/22 05:42 Neut % (Auto) 70.2 % 04/20/22 05:42 Lymph % (Auto) 14.9 % 04/20/22 05:42 Simpson % (Auto) 10.2 % 04/20/22 05:42 Eos % (Auto) 3.6 % 04/20/22 05:42 Baso % (Auto) 0.5 % 04/20/22 05:42 Neut # (Auto) 7.18 K/uL (1.4-6.5) H 04/20/22 05:42 Lymph # (Auto) 1.52 K/uL (1.2-3.4) 04/20/22 05:42 Simpson # (Auto) 1.04 K/uL (0.24-0.82) H 04/20/22 05:42 Eos # (Auto) 0.37 K/uL (0-0.50) 04/20/22 05:42 Baso # (Auto) 0.05 K/uL (0-0.2) 04/20/22 05:42 Immature Gran # (Auto) 0.06 K/uL (0.00-0.02) H 04/20/22 05:42 PT 11.1 Seconds (9.0-12.0) 04/17/22 22:01 INR 1.0 (0.9-1.1) 04/17/22 22:01 ABG pH 7.39 (7.35-7.45) 04/18/22 07:20 ABG pCO2 40 mmHg (35-46) 04/18/22 07:20 ABG pO2 89 mmHg (80-95) 04/18/22 07:20 ABG HCO3 24 mmol/L (19-24) 04/18/22 07:20 ABG O2 Saturation 98.4 % (90-95) H 04/18/22 07:20 ABG Base Excess -0.7 mEq/L (-9-1.8) 04/18/22 07:20 Samuel Test Pos (Pos) 04/18/22 07:20 VBG pH 7.37 (7.36-7.41) 04/17/22 22:41 VBG pCO2 52 mmHg (38-50) H 04/17/22 22:41 VBG pO2 27 mmHg 04/17/22 22:41 VBG HCO3 30 mmol/L 04/17/22 22:41 VBG O2 Saturation < 60.0 % 04/17/22 22:41 VBG Base Excess 3.6 mEq/L 04/17/22 22:41 Oxygen Given 3L 04/18/22 07:20 POC Sodium 138 mmol/L (135-144) 04/17/22 22:11 Sodium 134 mmol/L (136-145) L 04/20/22 05:42 POC Potassium 4.2 mmol/L (3.3-5.0) 04/17/22 22:11 Potassium 4.3 mmol/L (3.5-5.1) 04/20/22 05:42 POC Chloride 101 mmol/L (101-112) 04/17/22 22:11 Chloride 101 mmol/L (98-107) 04/20/22 05:42 Carbon Dioxide 28 mmol/L (21-32) 04/20/22 05:42 POC Total CO2 27 mmol/L (24-31) 04/17/22 22:11 Anion Gap 5 (3-11) 04/20/22 05:42 POC Anion Gap 15.0 mmol/L (16-25) L 04/17/22 22:11 POC BUN 29 mg/dl (7-18) H 04/17/22 22:11 BUN 30 mg/dl (6-23) H 04/20/22 05:42 Creatinine 0.84 mg/dl (0.6-1.4) 04/20/22 05:42 POC Creatinine 1.2 mg/dl (0.6-1.3) 04/17/22 22:11 Est Cr Clr Drug Dosing 59.3 ml/min 04/20/22 05:42 Est GFR ( Amer) 105.0 ml/min 04/20/22 05:42 Est GFR (Non-Af Amer) 90.6 ml/min 04/20/22 05:42 BUN/Creatinine Ratio 35.7 (10-20) H 04/20/22 05:42 Glucose 90 mg/dl (70-99(Fasting)) 04/20/22 05:42 POC Glucose 152 mg/dl (70-99) H 04/18/22 02:19 POC Glucose (other) 84 mg/dl (70-99) 04/17/22 22:11 Lactate 1.2 mmol/L (0.4-2.0) 04/17/22 22:41 Calcium 8.5 mg/dl (8.5-10.1) 04/20/22 05:42 POC Ioniz Calcium Ugo 1.17 mmol/l (1.12-1.32) 04/17/22 22:11 Phosphorus 3.2 mg/dl (2.5-4.9) 04/17/22 22:01 Magnesium 1.6 mg/dl (1.7-2.4) L 04/18/22 07:20 Total Bilirubin 0.5 mg/dl (0.2-1.0) 04/17/22 22:01 Direct Bilirubin 0.1 mg/dl (0-0.2) 04/17/22 22:01 AST 16 U/L (13-39) 04/17/22 22:01 ALT 21 U/L (7-52) 04/17/22 22:01 Alkaline Phosphatase 132 U/L (34-104) H 04/17/22 22:01 Troponin I High Sens 4.5 pg/ml (0-20) 04/17/22 22:01 Total Protein 7.5 gm/dl (6.0-8.3) 04/17/22 22:01 Albumin 4.1 gm/dl (3.4-5.0) 04/17/22 22:01 Lipase 16 U/L (11-82) 04/17/22 22:01 Procalcitonin 0.42 ng/ml (0-0.5) 04/17/22 22:01 Urine Color Yellow 04/18/22 00:00 Urine Appearance Clear (Clear) 04/18/22 00:00 Urine pH 6.5 (4.5-7.5) 04/18/22 00:00 Ur Specific [place] 1.021 (1.000-1.030) 04/18/22 00:00 Urine Protein Negative (Negative) 04/18/22 00:00 Urine Glucose (UA) Negative (Negative) 04/18/22 00:00 Urine Ketones Negative (Negative) 04/18/22 00:00 Urine Blood Trace (Negative) H 04/18/22 00:00 Urine Nitrite Negative (Negative) 04/18/22 00:00 Urine Bilirubin Negative (Negative) 04/18/22 00:00 Urine Urobilinogen Negative (Negative) 04/18/22 00:00 Ur Leukocyte Esterase Negative (Negative) 04/18/22 00:00 Urine WBC (Auto) 1-5 /hpf (0-5) 04/18/22 00:00 Urine RBC (Auto) 0-4 /hpf (0-4) 04/18/22 00:00 U Hyaline Cast (Auto) 1-5 /lpf (0-5) 04/18/22 00:00 U Epithel Cells (Auto) 10-20 /lpf (0-5) H 04/18/22 00:00 Urine Bacteria (Auto) Negative (Negative) 04/18/22 00:00 Nasal Screen MRSA (PCR) Negative (Negative) 04/18/22 11:15 Phenytoin 20.1 mcg/ml (10-20) H 04/18/22 07:20 Adenovirus (PCR) Not Detected (NotDetected) 04/17/22 23:30 B. pertussis DNA (PCR) Not Detected (NotDetected) 04/17/22 23:30 B.parapertussis DNA PCR Not Detected (NotDetected) 04/17/22 23:30 C. pneumoniae DNA (PCR) Not Detected (NotDetected) 04/17/22 23:30 Coronavirus OC43 (PCR) Not Detected (NotDetected) 04/17/22 23:30 Coronavirus HKU1 (PCR) Not Detected (NotDetected) 04/17/22 23:30 Coronavirus 229E (PCR) Not Detected (NotDetected) 04/17/22 23:30 SARS-CoV-2 (PCR) Not Detected (NotDetected) 04/17/22 23:30 Coronavirus NL63 (PCR) Not Detected (NotDetected) 04/17/22 23:30 Human Metapneumovir PCR Not Detected (NotDetected) 04/17/22 23:30 Influenza Type A (PCR) Not Detected (NotDetected) 04/17/22 23:30 Influenza Type B (PCR) Not Detected (NotDetected) 04/17/22 23:30 M. pneumoniae (PCR) Not Detected (NotDetected) 04/17/22 23:30 Parainfluenza 1 (PCR) Not Detected (NotDetected) 04/17/22 23:30 Parainfluenza 2 (PCR) Not Detected (NotDetected) 04/17/22 23:30 Parainfluenza 3 (PCR) Not Detected (NotDetected) 04/17/22 23:30 Parainfluenza 4 (PCR) Not Detected (NotDetected) 04/17/22 23:30 RSV (PCR) Not Detected (NotDetected) 04/17/22 23:30 Entero/Rhino (PCR) Not Detected (NotDetected) 04/17/22 23:30 Blood Type O Positive 04/17/22 22:46 Antibody Screen NEGATIVE 04/17/22 22:46 Impressions Abdomen/Pelvis CT 04/17/22 21:[address] WITH IV CONTRAST CT DOSE: HISTORY: Generalized abdominal pain, fall sepsis TECHNIQUE: Multiaxial CT images of the abdomen and pelvis were performed following the use of intravenous contrast. A dose lowering technique was utilized adhering to the principles of ALARA. COMPARISON STUDY: Abdomen and pelvis CT 12/05/2020. FINDINGS: Compression deformities again noted within the lower thoracic and lumbar spine. These are likely chronic. Old posttraumatic and postoperative changes noted within the right hip. There is an acute nondisplaced fracture within the right acetabulum. This extends to the medial wall the acetabulum and as seen on the acetabular roof. Multiple old, healed right-sided rib fractures. Postoperative changes seen within the right wrist. The liver, gallbladder, spleen, adrenal glands, and pancreas are unremarkable. There is mild heterogen eous enhancement within the kidneys. This may be due to the overlying streak artifact from the patient's arms or scarring. Correlation with urinalysis recommended to exclude the possibility of a pyelonephritis. No hydronephrosis. No retroperitoneal lymphadenopathy or hematoma. Small right pelvic sidewall hematoma from the acetabular fracture. This results in minimal mass effect along the right bladder wall. No bladder wall thickening. Moderate well-formed stool within the colon. Colonic diverticulosis. No evidence for acute diverticulitis. No definite bowel wall thickening or obstruction. Normal appendix. IMPRESSION: 1. Acute nondisplaced right acetabular fracture. There is associated small right pelvic sidewall hematoma with minimal mass effect along the bladder. 2. Multiple compression deformities again noted within the lower thoracic and lumbar spine. These are likely chronic. 3. There is mild heterogeneous enhancement within the kidneys. This may be due to the overlying streak artifact from the patient's arms or scarring. Correlation with urinalysis recommended to exclude the possibility of a pyelonephritis. 4. This report was called/faxed to the emergency department following dictation. ACT 112: Negative or not required by law. Electronically signed by: Ganesh Chen M.D. 04/18/2022 8:[address] 04/17/22 21:[address] DOSE: 1497.88 mGy.cm HISTORY: pain fall TECHNIQUE: Multiaxial CT images of the cervical spine were performed and reformatted in the sagittal and coronal plane without the use of contrast. A dose lowering technique was utilized adhering to the principles of ALARA. COMPARISON: Cervical spine CT 08/12/2020. FINDINGS: No fractures. No subluxation. Prevertebral soft tissues and the C1-C2 interval are intact. No pneumothorax. Opacified mastoid air cells with middle ear effusions and chronic partial erosion of the ossicles. This remains unchanged. Emphysema. Chronic compression deformities noted within the upper thoracic spine. Moderate multilevel degenerative changes again noted. IMPRESSION: No fractures within the cervical spine. Additional findings as described above. ACT 112: Negative or not required by law. Electronically signed by: Ganesh Chen M.D. 04/18/2022 8:04 AM Chest CTA 04/17/22 21:57 CHEST CTA for PULMONARY ARTERIES CT DOSE: HISTORY: hypoxia, sepsis, r/o PE TECHNIQUE: Multiaxial CT images of the chest were performed following the intravenous administration of contrast to evaluate the pulmonary arteries. Maximal intensity projection images were also obtained. A dose lowering technique was utilized adhering to the principles of ALARA. COMPARISON STUDY: Chest CT 01/24/2022. FINDINGS: No evidence for an aortic dissection. The heart is normal in size. No pleural or pericardial effusions. No filling defects within the pulmonary arteries to suggest a pulmonary embolus. Comminuted and mildly displaced right humeral neck fracture is noted. Old, healed right clavicle fracture. There are multiple old right-sided rib fractures. Postoperative changes within the left humerus. Multiple compression deformities within the thoracic spine which are likely chronic. Abdominal structures will be reported on the same day abdomen and pelvis CT. Normal esophagus. The thyroid gland enhances normally. No mediastinal or hilar lymphadenopathy. No pneumothorax. Emphysema. Linear focus of consolidation within the left upper lobe posteriorly favors subsegmental atelectasis. A pneumonia could also have a similar appearance. Right basilar linear densities also consistent with subsegmental atelectasis. Partial mucoid opacification the right lower lobe bronchi. IMPRESSION: 1. No evidence for a pulmonary embolus. 2. Comminuted and mildly displaced right humeral neck fracture. 3. Emphysema. 4. Linear density within the left upper lobe posteriorly favor subsegmental atelectasis. A pneumonia could also have a similar appearance. ACT 112: Negative or not required by law. Electronically signed by: Ganesh Chen M.D. 04/18/2022 7:56 AM Chest X-Ray 04/17/22 21:57 XR chest 1V portable CLINICAL HISTORY: Sepsis TECHNIQUE: Single frontal radiograph of the chest was obtained. Comparison: Comparison is made to chest radiograph 01/23/2022 FINDINGS: No lines and tubes are seen. The aorta is tortuous. The remainder of the cardiomediastinal silhouette is unremarkable. The lungs are clear. No evidence of pleural effusion or pneumothorax. IMPRESSION: No acute chest disease. Please see right shoulder radiograph for findings of humeral fracture. ACT 112: Negative or not required by law. Electronically signed by: Arturo Malave M.D. 04/17/2022 10:[address] 04/17/22 21:[address] DOSE: HISTORY: pain fall TECHNIQUE: Multiaxial CT images of the head were performed without the use of intravenous contrast. Automated exposure control was utilized for this study. A dose lowering technique was utilized adhering to the principles of ALARA. Comparison: Head CT 08/12/2020. Findings: Retention cyst within the right maxillary sinus. Opacified bilateral mastoid air cells, unchanged. The calvarium and skull base are intact. There is no mass, hematoma, midline shift, acute infarct. White matter hypodensity is nonspecific but suggestive of microvascular ischemic change. The ventricles and sulci demonstrate mild age-related involutional changes. Impression: No acute intracranial abnormality. ACT 112: Negative or not required by law. Electronically signed by: Ganesh Chen M.D. 04/18/2022 8:04 AM Hip/Pelvis X-Ray 04/17/22 21:57 XR hip RT 2V w pelvis CLINICAL HISTORY: pain fall TECHNIQUE: 2 views of the right hip and single frontal view of the pelvis were obtained. Comparison: Comparison is made to right hip radiograph 01/24/2022 FINDINGS: Right medullary popeye has been placed. No evidence of acute fracture. Old deformity of the right pubic rami noted. Joint spaces are well-preserved. No soft tissue abnormality is seen. IMPRESSION: No evidence of acute osseous injury. Old healed fractures and right femoral hardware placement noted. ACT 112: Negative or not required by law. Electronically signed by: Arturo Malave M.D. 04/17/2022 10:35 PM Shoulder X-Ray 04/17/22 21:57 XR shoulder RT min 2V routine CLINICAL HISTORY: pain fall TECHNIQUE: 3 views of the right shoulder were obtained. Comparison: Comparison is made to right shoulder radiographs 08/12/2020 FINDINGS: There is an acute fracture of the proximal humerus. Comminuted appearance of the distal clavicle is unchanged from prior exam. Soft tissue swelling is seen about the shoulder. The visualized portions of the lungs are clear. IMPRESSION: There is an acute fracture of the proximal humeral metadiaphysis which does not involve the articular surface, surrounding soft tissue swelling is seen. Old fracture of the distal clavicle is noted. ACT 112: Negative or not required by law. Electronically signed by: Arturo Malave M.D. 04/17/2022 10:[address] 04/18/22 07:[address] DOSE: HISTORY: proximal humerus fracture TECHNIQUE: Multiaxial CT images of the right shoulder were performed and reformatted in the sagittal and coronal plane without the use of contrast. A dose lowering technique was utilized adhering to the principles of ALARA. COMPARISON: Right shoulder radiograph 04/17/2022. FINDINGS: Redemonstration of a comminuted, mildly displaced, and impacted right humeral neck fracture. This is not extend into the humeral head. No dislocation. The fracture demonstrates mild angulation and mild posterior lateral displacement of up to 12 mm. There are old, healed right-sided rib fractures and an old, healed right clavicle fracture. There may be an acute nondisplaced fracture component within the right clavicle. No pneumothorax. The scapula appears intact. IMPRESSION: 1. Redemonstration of the comminuted, mildly displaced, and impacted right humeral neck fracture. No dislocation. 2. Acute on chronic nondisplaced distal right clavicle fracture ACT 112: Negative or not required by law. Electronically signed by: Ganesh Chen M.D. 04/18/2022 8:25 AM
[2022-04-20] MEDS ORDERED: cefTRIAXone SODIUM 1,000 MG in DEXTROSE 5% 50 ML IV SCH (12:15)
[2022-04-20] MEDS: oxyCODONE HCL IR 5 MG TAB (IMMEDIATE RELEASE) PO PRN (14:57)
[2022-04-20] MEDS: DOXYCYCLINE HYCLATE 100 MG CAP PO SCH (16:39)
[2022-04-20] MEDS: SODIUM CHLOR 7% 4 ML NEB NEB SCH (20:11)
[2022-04-20] MEDS ORDERED: HYDROmorphone INJ 0.5 MG/0.5 ML SYR IV STA (21:06)
[2022-04-21] MEDS: ALBUT/IPRATROP 3MG/0.5MG NEB 3 ML VIAL NEB SCH ×4 (00:50→19:26)
[2022-04-21] MEDS: DOXYCYCLINE HYCLATE 100 MG CAP PO SCH ×2 (03:37→17:34)
[2022-04-21] MEDS: SODIUM CHLOR 7% 4 ML NEB NEB SCH ×2 (07:07→19:27)
[2022-04-21] MEDS: ASPIRIN 81 MG ECTAB PO SCH ×2 (07:41→21:14)
[2022-04-21] MEDS: PHENYTOIN SODIUM ER 100 MG CAP PO SCH (07:41)
[2022-04-21] MEDS: HEPARIN SOD 5,000 UNIT/0.5 ML VIAL SQ SCH ×2 (07:41→21:11)
[2022-04-21] MEDS: CEFDINIR 300 MG CAP PO SCH ×2 (07:41→21:43)
[2022-04-21] MEDS: FLUTICASONE/VILANTEROL 100/25MCG 14 PUFFS/INHALER INH SCH (07:42)
[2022-04-21] MEDS: oxyCODONE HCL IR 5 MG TAB (IMMEDIATE RELEASE) PO PRN ×3 (07:44→23:46)
[2022-04-21 08:02] LABS: Basophils # (auto) 0.04 K/uL (0-0.2); Basophils % (auto) 0.4 %; Eosinophils # (auto) 0.38 K/uL (0-0.50); Eosinophils % (auto) 3.8 %; Hematocrit (blood only) 32.7 % (40.1-51.0); Hemoglobin 10.9 g/dl (14.0-18.0); Immature Granulocytes # (auto) 0.06 K/uL (0.00-0.02); Immature Granulocytes % (auto) 0.6 %; Lymphocytes # (auto) 1.25 K/uL (1.2-3.4); Lymphocytes % (auto) 12.3 %; Mean Corpuscular Hgb Conc 33.3 g/dL (32.0-36.0); Mean Corpuscular Volume 95.9 fL (80.0-100.0); Mean Platelet Volume 9.3 fL (9.4-12.4); Monocytes # (auto) 0.95 K/uL (0.24-0.82); Monocytes % (auto) 9.4 %; Neutrophils # (auto) 7.45 K/uL (1.4-6.5); Neutrophils % (auto) 73.5 %; Platelet Count 215 K/uL (130-400); RDW Coefficient of Variation 13.3 % (11.5-14.5); RDW Standard Deviation 47.5 fL (36.4-46.3); Red Blood Count 3.41 M/uL (4.63-6.08); White Blood Count 10.13 K/ul (4.8-10.8)
[2022-04-21 08:24] LABS: BUN Creatinine Ratio 41.9 (10-20); Calcium 8.8 mg/dl (8.5-10.1); Creatinine Clr Calc Pharmacy 82.7 ml/min; Est GFR (Non-African American) 102.7 ml/min; Potassium 4.3 mmol/L (3.5-5.1)
--- NOTE | 2022-04-21 16:14 | Hospitalist Progress Note ---
Date of Service April 21, 2022 Assessment & Plan (1) Elevated Dilantin level: Plan (1) Fracture of proximal humerus: (2) Fracture, intertrochanteric, right femur: Presents after a mechanical fall from boarding home History of repeated falls in the past as well due to ambulatory dysfunction. CT abdomen and pelvis shows acute nondisplaced right acetabular fracture. Associated a small right pelvic sidewall hematoma with minimal mass-effect along the bladder. Patient is voiding well by himself. Shoulder CT shows commuted mildly displaced and impacted humeral neck fracture. Acute on chronic nondisplaced right clavicle fracture Plan; Continue pain control with Tylenol and oxycodone. Orthopedic on board; recommend sling immobilization for fracture of proximal humerus. Recommend partial weightbearing for nondisplaced acetabular wall fracture. - PT OT consulted; will most likely need rehab. technology services manager on board. Awaiting placement. (3) Emphysema/COPD: (4) Acute respiratory failure with hypoxia: (5) Pneumonia: Was hypoxic with O2 sat of 88% on presentation; weaned down to RA by the day today. CT chest shows linear density within left upper lobe posteriorly. Emphysema present Received dose of steroid on admission as well. Plan; -Was placed on Zosyn and vancomycin and doxycycline. De-escalated to ceftriaxone and doxycycline; will provide total of 5 days of antibiotic. Vancomycin DC'd as MRSA is negative. -Currently on duo nebs every 6 hours; hypertonic saline added for airway clearance. -Started on Breo. We will continue Breo, add Spiriva and provide albuterol as needed on DC. Not on any inhalers at home. -Will need pulmonology follow-up as outpatient. 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 Has admissions in the past due to Dilantin toxicity. Serum Dilantin on presentation 26; was 20 on repeat check Plan; Started on Dilantin 100 mg once daily from 04/19 as per neurology recomme ndation. Need to have trough Dilantin level checked in 04/24. Follow-up with neurology as outpatient in 3 to 4 weeks. Will obtain trough level if he continues to be hospitalized here. Discussed goals of care; DNR/DNI. Heparin for DVT prophylaxis. Admission and Anticipated Discharge Date Admission Date: April 18, 2022 Subjective Patient seen and examined at bedside as a follow-up for fracture of proximal humerus and fracture right femur and elevated Dilantin level. Patient was lying in bed, on 2 L nasal cannula oxygen, NAD, denies any acute event overnight, complains of pain at fracture site but under control with pain medication, reports eating okay, reports problem with bowel movement and is asking for bowel regimen, denies other review of symptoms. Physical Exam Physical Exam: GENERAL: Alert and oriented x3. NAD, on 2L NC O2, has dysarthria. HEENT: No pallor, no icterus. Pupils equal, round and reactive to light. Oral mucosa moist. NECK: No JVD, no neck masses. HEART: S1 and S2 heard. Regular rate and rhythm. No murmur, no gallop. RESPIRATORY SYSTEM: Normal AP diameter. No accessory muscle use. occasional rales and wheezes ABDOMEN: Soft, bowel sounds present, nontender, no distention. CENTRAL NERVOUS SYSTEM: No facial droop. Speech is clear. Obeys simple commands. Moves extremities. EXTREMITIES: No edema, no erythema seen. Musculoskeletal: Deformity, ecchymosis present on right arm. ROM painful on right hip. tenderness present on palpation. Results & Data Results & Data ([facility]) Vital Signs (Past 12 Hours) Vital Signs Temp Pulse Pulse Resp BP Pulse Ox O2 Del Method 04/21/22 15:45 36.7 C 82 18 98/65 L 96 Room Air 04/21/22 12:55 80 18 86 L Nasal Cannula 04/21/22 11:04 36.9 C 88 20 97/63 L 90 Nasal Cannula 04/21/22 07:43 36.8 C 84 20 110/68 92 Nasal Cannula 04/21/22 07:08 83 18 98 Nasal Cannula O2 Flow Rate 04/21/22 15:45 04/21/22 12:55 2 04/21/22 11:04 2 04/21/22 07:43 2 04/21/22 07:08 1
[2022-04-21] MEDS: POLYETHYLENE (MIRALAX) 17 GM PACK PO SCH (17:34)
[2022-04-21] MEDS: DOCUSATE SODIUM 100 MG CAP PO SCH (21:12)
[2022-04-21] MEDS: ACETAMINOPHEN 325 MG TAB PO PRN (21:43)
[2022-04-22] MEDS: ALBUT/IPRATROP 3MG/0.5MG NEB 3 ML VIAL NEB SCH ×5 (00:30→19:28)
[2022-04-22] MEDS: DOXYCYCLINE HYCLATE 100 MG CAP PO SCH ×3 (03:46→16:30)
[2022-04-22] MEDS: SODIUM CHLOR 7% 4 ML NEB NEB SCH ×2 (07:34→19:28)
[2022-04-22] MEDS: DOCUSATE SODIUM 100 MG CAP PO SCH ×2 (08:05→20:24)
[2022-04-22] MEDS: CEFDINIR 300 MG CAP PO SCH ×2 (08:05→20:24)
[2022-04-22] MEDS: ASPIRIN 81 MG ECTAB PO SCH ×2 (08:05→20:23)
[2022-04-22] MEDS: POLYETHYLENE (MIRALAX) 17 GM PACK PO SCH (08:06)
[2022-04-22] MEDS: HEPARIN SOD 5,000 UNIT/0.5 ML VIAL SQ SCH ×2 (08:06→20:20)
[2022-04-22] MEDS: PHENYTOIN SODIUM ER 100 MG CAP PO SCH (08:06)
[2022-04-22] MEDS: FLUTICASONE/VILANTEROL 100/25MCG 14 PUFFS/INHALER INH SCH (08:06)
[2022-04-22] MEDS ORDERED: guaiFENesin 600 MG TABCR PO SCH (12:00)
--- NOTE | 2022-04-22 14:38 | XRay Report ---
SINGLE VIEW CHEST CLINICAL HISTORY: Cough. Crackles on physical examination FINDINGS: An AP, portable, upright chest radiograph is compared to study dated 04/17/2022 and correla darius with chest CT dated 04/18/2022. The examination is degraded by portable technique and apical lord otic positioning. The cardiomediastinal silhouette is unremarkable noting atherosclerotic calcificati on of the thoracic aorta. Emphysema and chronic interstitial thickening is similar to previous. There are increasing bibasilar opacities which likely represents atelectasis. No large pleural effusion or pneumothorax is seen. The skeletal structures are osteopenic. Fracture of the right humeral shaft is again noted. Postsurgical changes noted in the left proximal humerus. There are healed bilateral rib fractures. IMPRESSION: 1. Emphysema. 2. Bibasilar opacities have modestly increased from previous and likely represent atelectasis. Correl ate clinically for evidence of a developing pneumonitis. 3. Right proximal humeral fracture is again noted. ACT 112: Negative or not required by law. Electronically signed by: Franki Merritt M.D. 04/22/2022 2:37 PM
--- NOTE | 2022-04-22 15:54 | Hospitalist Progress Note ---
Date of Service April 22, 2022 Assessment & Plan (1) Elevated Dilantin level: Plan (1) Fracture of proximal humerus: (2) Fracture, intertrochanteric, right femur: Presents after a mechanical fall from boarding home History of repeated falls in the past as well due to ambulatory dysfunction. CT abdomen and pelvis shows acute nondisplaced right acetabular fracture. Associated a small right pelvic sidewall hematoma with minimal mass-effect along the bladder. Patient is voiding well by himself. Shoulder CT shows commuted mildly displaced and impacted humeral neck fracture. Acute on chronic nondisplaced right clavicle fracture Plan; Continue pain control with Tylenol and oxycodone. Orthopedic on board; recommend sling immobilization for fracture of proximal humerus. Recommend partial weightbearing for nondisplaced acetabular wall fracture. - PT OT consulted; will most likely need rehab. cashier manager on board. (3) Emphysema/COPD: (4) Acute respiratory failure with hypoxia: (5) Pneumonia: Was hypoxic with O2 sat of 88% on presentation; weaned down to RA by the day today. CT chest shows linear density within left upper lobe posteriorly. Emphysema present Received dose of steroid on admission as well. Repeat CXR w/ modestly increasing bibasilar opacities. Plan; -Was placed on Zosyn and vancomycin and doxycycline. De-escalated to cefdinir and doxycycline; will provide total of 5 days of antibiotic. Vancomycin DC'd as MRSA is negative. -Currently on duo nebs every 6 hours; hypertonic saline, mucomyst inh. -Started on Breo. We will continue Breo, add Spiriva and provide albuterol as needed on DC. Not on any inhalers at home. -Will need pulmonology follow-up as outpatient. 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 Has admissions in the past due to Dilantin toxicity. Serum Dilantin on presentation 26; was 20 on repeat check Plan; Started on Dilantin 100 mg once daily from 04/19 as per neurology recommendation. Need to have trough Dilantin level checked in 04/24. Follow-up with neurology as outpatient in 3 to 4 weeks. Will obtain trough level if he continues to be hospitalized here. Discussed goals of care; DNR/DNI. Heparin for DVT prophylaxis. Dispo: BP soft in AM, pt feels weak and not very well, will monitor overnight, CXR repeated w/ b/b opacities -- encourage incentive spirometer even on DC d/t decreased mobility. c/w PT/OT. likely dc in 1-2 days. Admission and Anticipated Discharge Date Admission Date: April 18, 2022 Subjective Patient seen and examined at bedside as a follow-up for fracture of proximal humerus and fracture right femur and elevated Dilantin level. Patient was lying in bed, on 2 L nasal cannula oxygen, NAD, denies any acute event overnight, complains of pain at fracture site but under control with pain medication, reports eating okay, reports problem with bowel movement, bowel regimen was added, will increase. reports not being able to cough up and feels congested, will add mucomyst inh. denies other review of symptoms. Physical Exam Physical Exam: GENERAL: Alert and oriented x3. NAD, on 2L NC O2, has dysarthria. HEENT: No pallor, no icterus. Pupils equal, round and reactive to light. Oral mucosa moist. NECK: No JVD, no neck masses. HEART: S1 and S2 heard. Regular rate and rhythm. No murmur, no gallop. RESPIRATORY SYSTEM: Normal AP diameter. No accessory muscle use. occasional rales and wheezes ABDOMEN: Soft, bowel sounds present, nontender, no distention. CENTRAL NERVOUS SYSTEM: No facial droop. Speech is clear. Obeys simple commands. Moves extremities. EXTREMITIES: No edema, no erythema seen. Musculoskeletal: Deformity, ecchymosis present on right arm. ROM painful on right hip. tenderness present on palpation. Results & Data Results & Data ([facility]) Vital Signs (Past 12 Hours) Vital Signs Temp Pulse Pulse Resp BP Pulse Ox O2 Del Method 04/22/22 15:17 36.8 C 88 16 112/69 96 Nasal Cannula 04/22/22 15:10 Nasal Cannula 04/22/22 14:00 112/71 90 Room Air 04/22/22 12:21 90 18 93 Nasal Cannula 04/22/22 12:00 109/63 04/22/22 11:54 36.3 C L 93 H 18 109/65 93 Nasal Cannula 04/22/22 10:48 37.2 C 92 H 18 100/64 92 Nasal Cannula 04/22/22 10:42 98 H 99/59 L 04/22/22 08:00 36.6 C 75 20 87/60 L 91 Nasal Cannula 04/22/22 07:34 77 18 85 L Room Air O2 Flow Rate 04/22/22 15:17 4 04/22/22 15:10 2 04/22/22 14:00 04/22/22 12:21 2 04/22/22 12:00 04/22/22 11:54 2 04/22/22 10:48 2 04/22/22 10:42 04/22/22 08:00 2 04/22/22 07:34
[2022-04-22] MEDS: ACETYLCYSTEINE 20% INHAL SOLN 4ML ***DISPENSED BY RESP. INH SCH ×2 (15:58→19:27)
[2022-04-23] MEDS: ALBUT/IPRATROP 3MG/0.5MG NEB 3 ML VIAL NEB SCH ×4 (02:05→19:03)
[2022-04-23] MEDS: SODIUM CHLOR 7% 4 ML NEB NEB SCH ×2 (07:03→19:04)
[2022-04-23] MEDS: ACETYLCYSTEINE 20% INHAL SOLN 4ML ***DISPENSED BY RESP. INH SCH ×2 (07:04→20:36)
[2022-04-23 07:15] LABS: Hematocrit (blood only) 32.8 % (40.1-51.0); Hemoglobin 10.6 g/dl (14.0-18.0); Mean Corpuscular Hemoglobin 31.5 pg (25.0-34.0); Mean Corpuscular Hgb Conc 32.3 g/dL (32.0-36.0); Mean Corpuscular Volume 97.6 fL (80.0-100.0); Platelet Count 281 K/uL (130-400); RDW Coefficient of Variation 13.6 % (11.5-14.5); RDW Standard Deviation 48.6 fL (36.4-46.3); Red Blood Count 3.36 M/uL (4.63-6.08); White Blood Count 9.84 K/ul (4.8-10.8)
[2022-04-23 07:46] LABS: BUN Creatinine Ratio 40.4 (10-20); Calcium 8.9 mg/dl (8.5-10.1); Creatinine Clr Calc Pharmacy 87.5 ml/min; Est GFR (African American) 123.2 ml/min; Est GFR (Non-African American) 106.3 ml/min; Potassium 4.4 mmol/L (3.5-5.1)
[2022-04-23] MEDS ORDERED: FUROSEMIDE INJ 20 MG/2 ML VIAL IV ONE (08:01)
[2022-04-23] MEDS: DOCUSATE SODIUM 100 MG CAP PO SCH ×2 (09:16→19:52)
[2022-04-23] MEDS: HEPARIN SOD 5,000 UNIT/0.5 ML VIAL SQ SCH ×2 (09:16→19:52)
[2022-04-23] MEDS: ASPIRIN 81 MG ECTAB PO SCH ×2 (09:16→21:37)
[2022-04-23] MEDS: POLYETHYLENE (MIRALAX) 17 GM PACK PO SCH (09:16)
[2022-04-23] MEDS: PHENYTOIN SODIUM ER 100 MG CAP PO SCH (09:16)
[2022-04-23] MEDS: FLUTICASONE/VILANTEROL 100/25MCG 14 PUFFS/INHALER INH SCH (09:16)
[2022-04-23] MEDS: oxyCODONE HCL IR 5 MG TAB (IMMEDIATE RELEASE) PO PRN ×2 (09:21→17:46)
[2022-04-23] MEDS: ACETAMINOPHEN 325 MG TAB PO PRN ×2 (12:57→21:37)
--- NOTE | 2022-04-23 12:59 | Hospitalist Progress Note ---
Date of Service April 23, 2022 Assessment & Plan (1) Elevated Dilantin level: Plan (1) Fracture of proximal humerus: (2) Fracture, intertrochanteric, right femur: Presents after a mechanical fall from boarding home History of repeated falls in the past as well due to ambulatory dysfunction. CT abdomen and pelvis shows acute nondisplaced right acetabular fracture. Associated a small right pelvic sidewall hematoma with minimal mass-effect along the bladder. Patient is voiding well by himself. Shoulder CT shows commuted mildly displaced and impacted humeral neck fracture. Acute on chronic nondisplaced right clavicle fracture Plan; Continue pain control with Tylenol and oxycodone. Orthopedic on board; recommend sling immobilization for fracture of proximal humerus. Recommend partial weightbearing for nondisplaced acetabular wall fracture. You will need follow-up as outpatient after discharge from rehab. - PT OT consulted; will most likely need rehab. biodiesel operations manager on board. (3) Emphysema/COPD: (4) Acute respiratory failure with hypoxia: (5) Pneumonia: Was hypoxic with O2 sat of 88% on presentation; CT chest shows linear density within left upper lobe posteriorly. Emphysema present Received dose of steroid on admission as well. Repeat CXR w/ modestly increasing bibasilar opacities. Plan; -Was placed on Zosyn and vancomycin and doxycycline. Status post 5 days of ceftriaxone and doxycycline. -Currently on duo nebs every 6 hours; hypertonic saline, mucomyst inh. -Started on Breo. We will continue Breo, add Spiriva and provide albuterol as needed on DC. Not on any inhalers at home. -Will need pulmonology follow-up as outpatient. 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 Has admissions in the past due to Dilantin toxicity. Serum Dilantin on presentation 26; was 20 on repeat check Plan; Started on Dilantin 100 mg once daily from 04/19 as per neurology recomm endation. Need to have trough Dilantin level checked in 04/24. Follow-up with neurology as outpatient in 3 to 4 weeks. Phenytoin level ordered for tomorrow morning labs. Discussed goals of care; DNR/DNI. Heparin for DVT prophylaxis. Dispositionpatient reports he feels better compared to yesterday. Discussed with case management regarding rehab placement; awaiting bed availability. Admission and Anticipated Discharge Date Admission Date: April 18, 2022 Subjective Patient seen and examined at bedside. He reports feeling better compared to yesterday. Complains of pain in his right arm at the fracture site. Oxygen requirement slightly improved to 2 L/min by nasal cannula Review of Systems Review of Systems: All systems reviewed & are unremarkable except as noted in Subjective Physical Exam Physical Exam: Constitutional: Awake, alert orient x3; has dysarthria Respiratory: normal respiratory effort, lungs clear to auscultation, no wheeze, rales, rhonchi. Normal insp/exp effort, no accessory muscle use Cardiovascular: RRR, no murmur, no edema Vessels: no JVD or carotid bruit Chest: b/l wheeze present; rhonchi present. Slightly improved. Abdomen: normal bowel sounds, soft, nontender, no hepatosplenomegaly Musculoskeletal: Deformity, ecchymosis present on right arm. ROM painful on right hip. tenderness present on palpation. Skin: no rashes, warm and dry normal turgor Neurologic: Awake alert oriented x3. Dysarthria present. 5/5 strength in bilateral upper extremity. 4/5 bilaterally in lower extremities. Psychiatric: A+Ox3, euthymic affect Lymphatic: no cervical or axillary lymphadenopathy : deferred Results & Data Results & Data ([facility]) Vital Signs (Past 12 Hours) Vital Signs Temp Pulse Resp BP Pulse Ox O2 Del Method O2 Flow Rate 04/23/22 12:44 83 18 94 Nasal Cannula 2 04/23/22 12:03 36.7 C 90 18 106/64 97 Nasal Cannula 3 04/23/22 08:00 Nasal Cannula 4 04/23/22 07:51 82 18 103/61 96 Nasal Cannula 4 04/23/22 07:41 36.5 C 87 18 107/58 L 93 Room Air 04/23/22 07:05 89 18 90 Nasal Cannula 2 04/23/22 03:26 37.0 C 91 H 18 101/67 92 Nasal Cannula 2 04/23/22 02:05 90 18 93 Room Air, Nasal Cannula 2 04/23/22 01:20 Nasal Cannula 2 Laboratory Results Laboratory Results WBC 9.84 K/ul (4.8-10.8) 04/23/22 06:47 RBC 3.36 M/uL (4.63-6.08) L 04/23/22 06:47 Hgb 10.6 g/dl (14.0-18.0) L 04/23/22 06:47 POC Hgb 12.9 g/dl (14.0-18.0) L 04/17/22 22:11 Hct 32.8 % (40.1-51.0) L 04/23/22 06:47 POC Hct 38 % (42-52) L 04/17/22 22:11 MCV 97.6 fL (80.0-100.0) 04/23/22 06:47 MCH 31.5 pg (25.0-34.0) 04/23/22 06:47 MCHC 32.3 g/dL (32.0-36.0) 04/23/22 06:47 RDW Std Deviation 48.6 fL (36.4-46.3) H 04/23/22 06:47 RDW Coeff of Lulú 13.6 % (11.5-14.5) 04/23/22 06:47 Plt Count 281 K/uL (130-400) 04/23/22 06:47 MPV 9.0 fL (9.4-12.4) L 04/23/22 06:47 Immature Gran % (Auto) 0.6 % 04/21/22 07:35 Neut % (Auto) 73.5 % 04/21/22 07:35 Lymph % (Auto) 12.3 % 04/21/22 07:35 Wise % (Auto) 9.4 % 04/21/22 07:35 Eos % (Auto) 3.8 % 04/21/22 07:35 Baso % (Auto) 0.4 % 04/21/22 07:35 Neut # (Auto) 7.45 K/uL (1.4-6.5) H 04/21/22 07:35 Lymph # (Auto) 1.25 K/uL (1.2-3.4) 04/21/22 07:35 Wise # (Auto) 0.95 K/uL (0.24-0.82) H 04/21/22 07:35 Eos # (Auto) 0.38 K/uL (0-0.50) 04/21/22 07:35 Baso # (Auto) 0.04 K/uL (0-0.2) 04/21/22 07:35 Immature Gran # (Auto) 0.06 K/uL (0.00-0.02) H 04/21/22 07:35 PT 11.1 Seconds (9.0-12.0) 04/17/22 22:01 INR 1.0 (0.9-1.1) 04/17/22 22:01 ABG pH 7.39 (7.35-7.45) 04/18/22 07:20 ABG pCO2 40 mmHg (35-46) 04/18/22 07:20 ABG pO2 89 mmHg (80-95) 04/18/22 07:20 ABG HCO3 24 mmol/L (19-24) 04/18/22 07:20 ABG O2 Saturation 98.4 % (90-95) H 04/18/22 07:20 ABG Base Excess -0.7 mEq/L (-9-1.8) 04/18/22 07:20 Samuel Test Pos (Pos) 04/18/22 07:20 VBG pH 7.37 (7.36-7.41) 04/17/22 22:41 VBG pCO2 52 mmHg (38-50) H 04/17/22 22:41 VBG pO2 27 mmHg 04/17/22 22:41 VBG HCO3 30 mmol/L 04/17/22 22:41 VBG O2 Saturation < 60.0 % 04/17/22 22:41 VBG Base Excess 3.6 mEq/L 04/17/22 22:41 Oxygen Given 3L 04/18/22 07:20 POC Sodium 138 mmol/L (135-144) 04/17/22 22:11 Sodium 135 mmol/L (136-145) L 04/23/22 06:47 POC Potassium 4.2 mmol/L (3.3-5.0) 04/17/22 22:11 Potassium 4.4 mmol/L (3.5-5.1) 04/23/22 06:47 POC Chloride 101 mmol/L (101-112) 04/17/22 22:11 Chloride 100 mmol/L (98-107) 04/23/22 06:47 Carbon Dioxide 30 mmol/L (21-32) 04/23/22 06:47 POC Total CO2 27 mmol/L (24-31) 04/17/22 22:11 Anion Gap 5 (3-11) 04/23/22 06:47 POC Anion Gap 15.0 mmol/L (16-25) L 04/17/22 22:11 POC BUN 29 mg/dl (7-18) H 04/17/22 22:11 BUN 23 mg/dl (6-23) 04/23/22 06:47 Creatinine 0.57 mg/dl (0.6-1.4) L 04/23/22 06:47 POC Creatinine 1.2 mg/dl (0.6-1.3) 04/17/22 22:11 Est Cr Clr Drug Dosing 87.5 ml/min 04/23/22 06:47 Est GFR ( Amer) 123.2 ml/min 04/23/22 06:47 Est GFR (Non-Af Amer) 106.3 ml/min 04/23/22 06:47 BUN/Creatinine Ratio 40.4 (10-20) H 04/23/22 06:47 Glucose 97 mg/dl (70-99(Fasting)) 04/23/22 06:47 POC Glucose 152 mg/dl (70-99) H 04/18/22 02:19 POC Glucose (other) 84 mg/dl (70-99) 04/17/22 22:11 Lactate 1.2 mmol/L (0.4-2.0) 04/17/22 22:41 Calcium 8.9 mg/dl (8.5-10.1) 04/23/22 06:47 POC Ioniz Calcium Ugo 1.17 mmol/l (1.12-1.32) 04/17/22 22:11 Phosphorus 3.2 mg/dl (2.5-4.9) 04/17/22 22:01 Magnesium 1.6 mg/dl (1.7-2.4) L 04/18/22 07:20 Total Bilirubin 0.5 mg/dl (0.2-1.0) 04/17/22 22:01 Direct Bilirubin 0.1 mg/dl (0-0.2) 04/17/22 22:01 AST 16 U/L (13-39) 04/17/22 22:01 ALT 21 U/L (7-52) 04/17/22 22:01 Alkaline Phosphatase 132 U/L (34-104) H 04/17/22 22:01 Troponin I High Sens 4.5 pg/ml (0-20) 04/17/22 22:01 Total Protein 7.5 gm/dl (6.0-8.3) 04/17/22 22:01 Albumin 4.1 gm/dl (3.4-5.0) 04/17/22 22: Lipase 16 U/L (11-82) 04/17/22 22:01 Procalcitonin 0.05 ng/ml (0-0.5) 04/23/22 06:47 Urine Color Yellow 04/18/22 00:00 Urine Appearance Clear (Clear) 04/18/22 00:00 Urine pH 6.5 (4.5-7.5) 04/18/22 00:00 Ur Specific [place] 1.021 (1.000-1.030) 04/18/22 00:00 Urine Protein Negative (Negative) 04/18/22 00:00 Urine Glucose (UA) Negative (Negative) 04/18/22 00:00 Urine Ketones Negative (Negative) 04/18/22 00:00 Urine Blood Trace (Negative) H 04/18/22 00:00 Urine Nitrite Negative (Negative) 04/18/22 00:00 Urine Bilirubin Negative (Negative) 04/18/22 00:00 Urine Urobilinogen Negative (Negative) 04/18/22 00:00 Ur Leukocyte Esterase Negative (Negative) 04/18/22 00:00 Urine WBC (Auto) 1-5 /hpf (0-5) 04/18/22 00:00 Urine RBC (Auto) 0-4 /hpf (0-4) 04/18/22 00:00 U Hyaline Cast (Auto) 1-5 /lpf (0-5) 04/18/22 00:00 U Epithel Cells (Auto) 10-20 /lpf (0-5) H 04/18/22 00:00 Urine Bacteria (Auto) Negative (Negative) 04/18/22 00:00 Nasal Screen MRSA (PCR) Negative (Negative) 04/18/22 11:15 Phenytoin 20.1 mcg/ml (10-20) H 04/18/22 07:20 Adenovirus (PCR) Not Detected (NotDetected) 04/17/22 23:30 B. pertussis DNA (PCR) Not Detected (NotDetected) 04/17/22 23:30 B.parapertussis DNA PCR Not Detected (NotDetected) 04/17/22 23:30 C. pneumoniae DNA (PCR) Not Detected (NotDetected) 04/17/22 23:30 Coronavirus OC43 (PCR) Not Detected (NotDetected) 04/17/22 23:30 Coronavirus HKU1 (PCR) Not Detected (NotDetected) 04/17/22 23:30 Coronavirus 229E (PCR) Not Detected (NotDetected) 04/17/22 23:30 SARS-CoV-2 (PCR) Not Detected (NotDetected) 04/17/22 23:30 Coronavirus NL63 (PCR) Not Detected (NotDetected) 04/17/22 23:30 Human Metapneumovir PCR Not Detected (NotDetected) 04/17/22 23:30 Influenza Type A (PCR) Not Detected (NotDetected) 04/17/22 23:30 Influenza Type B (PCR) Not Detected (NotDetected) 04/17/22 23:30 M. pneumoniae (PCR) Not Detected (NotDetected) 04/17/22 23:30 Parainfluenza 1 (PCR) Not Detected (NotDetected) 04/17/22 23:30 Parainfluenza 2 (PCR) Not Detected (NotDetected) 04/17/22 23:30 Parainfluenza 3 (PCR) Not Detected (NotDetected) 04/17/22 23:30 Parainfluenza 4 (PCR) Not Detected (NotDetected) 04/17/22 23:30 RSV (PCR) Not Detected (NotDetected) 04/17/22 23:30 Entero/Rhino (PCR) Not Detected (NotDetected) 04/17/22 23:30 Blood Type O Positive 04/17/22 22:46 Antibody Screen NEGATIVE 04/17/22 22:46 Impressions Abdomen/Pelvis CT 04/17/22 21:[address] WITH IV CONTRAST CT DOSE: HISTORY: Generalized abdominal pain, fall sepsis TECHNIQUE: Multiaxial CT images of the abdomen and pelvis were performed following the use of intravenous contrast. A dose lowering technique was utilized adhering to the principles of ALARA. COMPARISON STUDY: Abdomen and pelvis CT 12/05/2020. FINDINGS: Compression deformities again noted within the lower thoracic and lumbar spine. These are likely chronic. Old posttraumatic and postoperative changes noted within the right hip. There is an acute nondisplaced fracture within the right acetabulum. This extends to the medial wall the acetabulum and as seen on the acetabular roof. Multiple old, healed right-sided rib fractures. Postoperative changes seen within the right wrist. The liver, gallbladder, spleen, adrenal glands, and pancreas are unremarkable. There is mild heterogeneous enhancement within the kidneys. This may be due to the overlying streak artifact from the patient's arms or scarring. Correlation with urinalysis recommended to exclude the possibility of a pyelonephritis. No hydronephrosis. No retroperitoneal lymphadenopathy or hematoma. Small right pelvic sidewall hematoma from the acetabular fracture. This results in minimal mass effect along the right bladder wall. No bladder wall thickening. Moderate well-formed stool within the colon. Colonic diverticulosis. No evidence for acute diverticulitis. No definite bowel wall thickening or obstruction. Normal appendix. IMPRESSION: 1. Acute nondisplaced right acetabular fracture. There is associated small right pelvic sidewall hematoma with minimal mass effect along the bladder. 2. Multiple compression deformities again noted within the lower thoracic and lumbar spine. These are likely chronic. 3. There is mild heterogeneous enhancement within the kidneys. This may be due to the overlying streak artifact from the patient's arms or scarring. Correlation with urinalysis recommended to exclude the possibility of a pyelonephritis. 4. This report was called/faxed to the emergency department following dictation. ACT 112: Negative or not required by law. Electronically signed by: Ganesh Chen M.D. 04/18/2022 8:[address] 04/17/22 21:[address] DOSE: 1497.88 mGy.cm HISTORY: pain fall TECHNIQUE: Multiaxial CT images of the cervical spine were performed and reformatted in the sagittal and coronal plane without the use of contrast. A dose lowering technique was utilized adhering to the principles of ALARA. COMPARISON: Cervical spine CT 08/12/2020. FINDINGS: No fractures. No subluxation. Prevertebral soft tissues and the C1-C2 interval are intact. No pneumothorax. Opacified mastoid air cells with middle ear effusions and chronic partial erosion of the ossicles. This remains unchanged. Emphysema. Chronic compression deformities noted within the upper thoracic spine. Moderate multilevel degenerative changes again noted. IMPRESSION: No fractures within the cervical spine. Additional findings as described above. ACT 112: Negative or not required by law. Electronically signed by: Ganesh Chen M.D. 04/18/2022 8:04 AM Chest CTA 04/17/22 21:57 CHEST CTA for PULMONARY ARTERIES CT DOSE: HISTORY: hypoxia, sepsis, r/o PE TECHNIQUE: Multiaxial CT images of the chest were performed following the intravenous administration of contrast to evaluate the pulmonary arteries. Maximal intensity projection images were also obtained. A dose lowering technique was utilized adhering to the principles of ALARA. COMPARISON STUDY: Chest CT 01/24/2022. FINDINGS: No evidence for an aortic dissection. The heart is normal in size. No pleural or pericardial effusions. No filling defects within the pulmonary arteries to suggest a pulmonary embolus. Comminuted and mildly displaced right humeral neck fracture is noted. Old, healed right clavicle fracture. There are multiple old right-sided rib fractures. Postoperative changes within the left humerus. Multiple compression deformities within the thoracic spine which are likely chronic. Abdominal structures will be reported on the same day abdomen and pelvis CT. Normal esophagus. The thyroid gland enhances normally. No mediastinal or hilar lymphadenopathy. No pneumothorax. Emphysema. Linear focus of consolidation within the left upper lobe posteriorly favors subsegmental atelectasis. A pneumonia could also have a similar appearance. Right basilar linear densities also consistent with subsegmental atelectasis. Partial mucoid opacification the right lower lobe bronchi. IMPRESSION: 1. No evidence for a pulmonary embolus. 2. Comminuted and mildly displaced right humeral neck fracture. 3. Emphysema. 4. Linear density within the left upper lobe posteriorly favor subsegmental atelectasis. A pneumonia could also have a similar appearance. ACT 112: Negative or not required by law. Electronically signed by: Ganesh Chen M.D. 04/18/2022 7:[address] 04/17/22 21:[address] DOSE: HISTORY: pain fall TECHNIQUE: Multiaxial CT images of the head were performed without the use of intravenous contrast. Automated exposure control was utilized for this study. A dose lowering technique was utilized adhering to the principles of ALARA. Comparison: Head CT 08/12/2020. Findings: Retention cyst within the right maxillary sinus. Opacified bilateral mastoid air cells, unchanged. The calvarium and skull base are intact. There is no mass, hematoma, midline shift, acute infarct. White matter hypodensity is nonspecific but suggestive of microvascular ischemic change. The ventricles and sulci demonstrate mild age-related involutional changes. Impression: No acute intracranial abnormality. ACT 112: Negative or not required by law. Electronically signed by: Ganesh Chen M.D. 04/18/2022 8:04 AM Hip/Pelvis X-Ray 04/17/22 21:57 XR hip RT 2V w pelvis CLINICAL HISTORY: pain fall TECHNIQUE: 2 views of the right hip and single frontal view of the pelvis were obtained. Comparison: Comparison is made to right hip radiograph 01/24/2022 FINDINGS: Right medullary popeye has been placed. No evidence of acute fracture. Old deformity of the right pubic rami noted. Joint spaces are well-preserved. No soft tissue abnormality is seen. IMPRESSION: No evidence of acute osseous injury. Old healed fractures and right femoral hardware placement noted. ACT 112: Negative or not required by law. Electronically signed by: Arturo Malave M.D. 04/17/2022 10:35 PM Shoulder X-Ray 04/17/22 21:57 XR shoulder RT min 2V routine CLINICAL HISTORY: pain fall TECHNIQUE: 3 views of the right shoulder were obtained. Comparison: Comparison is made to right shoulder radiographs 08/12/2020 FINDINGS: There is an acute fracture of the proximal humerus. Comminuted appearance of the distal clavicle is unchanged from prior exam. Soft tissue swelling is seen about the shoulder. The visualized portions of the lungs are clear. IMPRESSION: There is an acute fracture of the proximal humeral metadiaphysis which does not involve the articular surface, surrounding soft tissue swelling is seen. Old fracture of the distal clavicle is noted. ACT 112: Negative or not required by law. Electronically signed by: Arturo Malave M.D. 04/17/2022 10:[address] 04/18/22 07:[address] DOSE: HISTORY: proximal humerus fracture TECHNIQUE: Multiaxial CT images of the right shoulder were performed and reformatted in the sagittal and coronal plane without the use of contrast. A dose lowering technique was utilized adhering to the principles of ALARA. COMPARISON: Right shoulder radiograph 04/17/2022. FINDINGS: Redemonstration of a comminuted, mildly displaced, and impacted right humeral neck fracture. This is not extend into the humeral head. No dislocation. The fracture demonstrates mild angulation and mild posterior lateral displacement of up to 12 mm. There are old, healed right-sided rib fractures and an old, healed right clavicle fracture. There may be an acute nondisplaced fracture component within the right clavicle. No pneumothorax. The scapula appears intact. IMPRESSION: 1. Redemonstration of the comminuted, mildly displaced, and impacted right humeral neck fracture. No dislocation. 2. Acute on chronic nondisplaced distal right clavicle fracture ACT 112: Negative or not required by law. Electronically signed by: Ganesh Chen M.D. 04/18/2022 8:25 AM Chest X-Ray 04/22/22 12:02 SINGLE VIEW CHEST CLINICAL HISTORY: Cough. Crackles on physical examination FINDINGS: An AP, portable, upright chest radiograph is compared to study dated 04/17/2022 and correlated with chest CT dated 04/18/2022. The examination is degraded by portable technique and apical lordotic positioning. The cardiomediastinal silhouette is unremarkable noting atherosclerotic calcification of the thoracic aorta. Emphysema and chronic interstitial thickening is similar to previous. There are increasing bibasilar opacities whic h likely represents atelectasis. No large pleural effusion or pneumothorax is seen. The skeletal structures are osteopenic. Fracture of the right humeral shaft is again noted. Postsurgical changes noted in the left proximal humerus. There are healed bilateral rib fractures. IMPRESSION: 1. Emphysema. 2. Bibasilar opacities have modestly increased from previous and likely represent atelectasis. Correlate clinically for evidence of a developing pneumonitis. 3. Right proximal humeral fracture is again noted. ACT 112: Negative or not required by law. Electronically signed by: Franki Merritt M.D. 04/22/2022 2:37 PM
[2022-04-24] MEDS: ALBUT/IPRATROP 3MG/0.5MG NEB 3 ML VIAL NEB SCH ×3 (00:32→13:17)
[2022-04-24] MEDS: ACETYLCYSTEINE 20% INHAL SOLN 4ML ***DISPENSED BY RESP. INH SCH (07:08)
[2022-04-24] MEDS: SODIUM CHLOR 7% 4 ML NEB NEB SCH (07:09)
[2022-04-24 07:40] LABS: Basophils # (auto) 0.02 K/uL (0-0.2); Basophils % (auto) 0.3 %; Eosinophils # (auto) 0.34 K/uL (0-0.50); Eosinophils % (auto) 5.3 %; Hematocrit (blood only) 31.4 % (40.1-51.0); Immature Granulocytes # (auto) 0.04 K/uL (0.00-0.02); Immature Granulocytes % (auto) 0.6 %; Lymphocytes # (auto) 1.17 K/uL (1.2-3.4); Lymphocytes % (auto) 18.3 %; Mean Corpuscular Hemoglobin 31.2 pg (25.0-34.0); Mean Corpuscular Hgb Conc 31.8 g/dL (32.0-36.0); Mean Corpuscular Volume 97.8 fL (80.0-100.0); Monocytes # (auto) 0.74 K/uL (0.24-0.82); Monocytes % (auto) 11.5 %; Platelet Count 296 K/uL (130-400); RDW Coefficient of Variation 13.5 % (11.5-14.5); RDW Standard Deviation 48.3 fL (36.4-46.3); Red Blood Count 3.21 M/uL (4.63-6.08); White Blood Count 6.41 K/ul (4.8-10.8)
[2022-04-24 08:08] LABS: BUN Creatinine Ratio 35.1 (10-20); Calcium 8.6 mg/dl (8.5-10.1); Creatinine Clr Calc Pharmacy 87.2 ml/min; Est GFR (African American) 123.2 ml/min; Est GFR (Non-African American) 106.3 ml/min; Potassium 4.1 mmol/L (3.5-5.1)
[2022-04-24] MEDS: ACETAMINOPHEN 325 MG TAB PO PRN (09:16)
[2022-04-24] MEDS: FLUTICASONE/VILANTEROL 100/25MCG 14 PUFFS/INHALER INH SCH (09:18)
[2022-04-24] MEDS: ASPIRIN 81 MG ECTAB PO SCH (09:18)
[2022-04-24] MEDS: DOCUSATE SODIUM 100 MG CAP PO SCH (09:20)
[2022-04-24] MEDS: PHENYTOIN SODIUM ER 100 MG CAP PO SCH (09:21)
[2022-04-24] MEDS: POLYETHYLENE (MIRALAX) 17 GM PACK PO SCH (09:30)
[2022-04-24] MEDS: HEPARIN SOD 5,000 UNIT/0.5 ML VIAL SQ SCH (09:30)
[2022-04-24] MEDS: oxyCODONE HCL IR 5 MG TAB (IMMEDIATE RELEASE) PO PRN (11:13)
--- NOTE | 2022-04-24 12:25 | Discharge Summary ---
Date of Service April 24, 2022 Admission HPI Per Admitting Provider This is a 66-year-old male with past medical history significant for emphysema, ongoing tobacco abuse, history of head injury, repair of the windpipe, traumatic brain injury,long time back, and history of posttraumatic seizure disorder, history of falls. The patient is currently residing at [facility]. Presents with shortness of breath, fever, generalized weakness, and fall today morning. When he came to[facility] he seems wheezing bilaterally and prolonged expiratory phase,, and was saturating at 85% on room air, and temperature was 37.7 on arrival, heart rate in the 100s. He was given an hour long neb treatment and his right hand was placed in the sling as x-ray showed right humerus fracture. VBG was okay. The patient's phenytoin level was supratherapeutic at 26.8. Respiratory panel was negative. He was given antibiotics vancomycin, cefepime, and doxycycline. The patient because of the injury to the windpipe generally is difficult to understand, but today he is totally sleeping and does not want to answer any questions, wants to go back to sleep. Could not get any history from the patient Admission Exam Per Admitting Provider GENERAL: The patient is drowsy, does not seem to be in acute distress. VITAL SIGNS: Temperature 37.7, pulse 74, respiratory rate 18, blood pressure 106/60, oxygen 96% on 3 liters. HEENT: Pupils equal, round, and reactive to light. No facial droop seen. NECK: No neck masses seen. CARDIOVASCULAR: S1 and S2 heard. Regular rate and rhythm. No murmur, no gallop. RESPIRATORY SYSTEM: Normal AP diameter. No accessory muscle. Bilateral diminished breath sounds. ABDOMEN: Soft, bowel sounds present. No distention. CENTRAL NERVOUS SYSTEM: Drowsy and goes back to sleep. EXTREMITIES: No edema, no erythema. Principal Diagnosis (1) Fracture of proximal humerus: (2) Fracture, intertrochanteric, right femur (3) Emphysema/COPD: (4) Acute respiratory failure with hypoxia: (5) Pneumonia: Discharge Exam Constitutional: Awake, alert orient x3; has dysarthria Respiratory: normal respiratory effort, lungs clear to auscultation, no wheeze, rales, rhonchi. Normal insp/exp effort, no accessory muscle use Cardiovascular: RRR, no murmur, no edema Vessels: no JVD or carotid bruit Chest: b/l wheeze present; rhonchi present. Slightly improved. Abdomen: normal bowel sounds, soft, nontender, no hepatosplenomegaly Musculoskeletal: Deformity, ecchymosis present on right arm. ROM painful on right hip. tenderness present on palpation. Skin: no rashes, warm and dry normal turgor Neurologic: Awake alert oriented x3. Dysarthria present. 5/5 strength in bilateral upper extremity. 4/5 bilaterally in lower extremities. Psychiatric: A+Ox3, euthymic affect Lymphatic: no cervical or axillary lymphadenopathy : deferred Discharge Data Allergies Allergy/AdvReac Type Severity Reaction Status Date / Time No Known Allergies Allergy Unknown Verified 04/17/22 23:54 Consultations 04/18/22 01:56 ED Decision to Admit Stat 04/18/22 07:26 Consult Neurology Routine 04/18/22 08:00 Consult Orthopedic Surgery Routine Ordered Studies 04/17/22 21:57 CT abd pelvis IV con only Urgent CT angio chest PE protocol Urgent CT cervical spine wo con Urgent CT head/brain wo con Urgent 04/18/22 07:42 CT shoulder RT wo con Routine Hospital Course (1) Elevated Dilantin level: Plan (1) Fracture of proximal humerus: (2) Fracture, intertrochanteric, right femur: Presents after a mechanical fall from boarding home History of repeated falls in the past as well due to ambulatory dysfunction. CT abdomen and pelvis shows acute nondisplaced right acetabular fracture. Associated a small right pelvic sidewall hematoma with minimal mass-effect along the bladder. Shoulder CT shows commuted mildly displaced and impacted humeral neck fracture. Acute on chronic nondisplaced right clavicle fracture Plan; Orthopedic saw the patient during the hospitalization on board; recommended sling immobilization for fracture of proximal humerus. Recommend partial weightbearing for nondisplaced acetabular wall fracture. Patient to follow-up as outpatient in 1 week. -Was prescribed Tylenol and oxycodone as needed for pain control. Lovenox for 2 weeks for DVT prophylaxis. (3) Emphysema/COPD: (4) Acute respiratory failure with hypoxia: (5) Pneumonia: Was hypoxic with O2 sat of 88% on presentation; CT chest shows linear density within left upper lobe posteriorly. Emphysema present Received dose of steroid on admission as well. Repeat CXR w/ modestly increasing bibasilar opacities. Plan; Completed antibiotic course for 5 days during the hospitalization. He was treated with airway clearance with flutter valve and hypertonic/Mucomyst inhalation. He was started on Breo and was given duo nebs [id number]-koeoa. Follow-up as outpatient with pulmonology. (6) Seizures, Elevated Dilantin level: Plan: History of traumatic brain injury with seizure disorder since several years. Has admissions in the past due to Dilantin toxicity. Serum Dilantin on presentation 26 Plan; Neurology consultation was done during the hospitalization. Dilantin dose was decreased to 100 mg once daily. Repeat trough level was done in 04/24 which showed subtherapeutic level. housecalls nurse neurologist Dr. Louis was contacted; patient was placed back on 100 mg twice daily with instruction to obtain trough level in 10 days. Patient was discharged to [facility]. Vitals signs were stable at time of discharge Total Time Total Time Spent Total Time Spent (In Minutes): 35 Total Time Includes: Examination of the Patient, Discharge Planning, Medication Reconciliation, Communication With Other Providers and Other Discharge Plan Discharge Items Patient Disposition: Transfer Inpatient Rehab Fac Reason For Visit: FALL Discharge Diagnosis: (1) Fracture of proximal humerus: (2) Fracture, intertrochanteric, right femur: 3) Acute Respiratory failure with hypoxia 4) Pneumonia 5) Elevated dilantin level Activity: Per Instructions section Activity Comment: toe-touch weightbearing on his right lower extremity using a walker Non-emergency contact: Primary Care Provider Call non-emergency contact if: you have any medication questions and your symptoms worsen Follow-up/Referrals: PCP,NO [Primary Care Provider] - Diet: Regular Addtl Attending Provider Instructions: You were admitted to the hospital after a fall. You were found to have fracture of proximal humerus of right arm. Please continue sling immobilization for the fracture. You are also found to have nondisplaced acetabular wall fracture of right hip. Please continue physical therapy at the rehab with toe-touch weightbearing on the right side. Continue pain control with as needed Tylenol and oxycodone. Lovenox is prescribed for next 2 weeks given your hip fracture for DVT prevention. You were seen by Dr. Sylvester Brown from [facility] . Follow-up with him in 1 week time. Please continue to take 100 mg twice daily of Dilantin. You should follow-up with neurology in 3 weeks. Trough level of Dilantin should be obtained on April 03. You were also found to have emphysema. You are prescribed Breo Ellipta and Spiriva which you should use daily. Please continue nebulization and rehab as needed every 6 hours for wheeze. You will need pulmonology follow-up as outpatient for management of your COPD. Pending Studies at Discharge: No Stand-Alone Forms: My [facility] Skilled Items Patient informed of condition?: Yes DNR: No Discharge Level of Care: Acute rehab Communicable Disease: No Discharge Prognosis: Stable Lines: None Urinary Catheter: No Medications and DC Order Prescriptions: New ipratropium-albuterol 0.5 mg-3 mg(2.5 mg base)/3 mL Solution For Nebulization 3 ml NEB Q6R PRN (Reason: shortness of breath or wheezing) Qty: 90 0RF acetaminophen 325 mg Tablet 650 mg PO Q4H PRN (Reason: pain) Qty: 30 0RF oxycodone 5 mg Tablet 5 mg PO Q6H PRN (Reason: pain) Qty: 10 0RF polyethylene glycol 3350 [Miralax] 17 gram Powder In Packet 17 g PO DAILY PRN (Reason: constipation) Qty: 14 0RF fluticasone furoate-vilanterol [Breo Ellipta] 100-25 mcg/dose Blister With Device 1 inh inhalation DAILY Qty: 60 0RF enoxaparin [Lovenox] 30 mg/0.3 mL syringe 30 mg subcut DAILY 14 Days Qty: 4.2 0RF albuterol sulfate [Proventil HFA] 90 mcg/actuation HFA aerosol inhaler 1 inh inhalation Q6H PRN (Reason: shortness of breath or wheezing) Qty: 6.7 0RF Spiriva Respimat 2.5 mcg/actuation mist 2 inh inhalation DAILY Qty: 4 0RF Continued phenytoin sodium extended 100 mg capsule 100 mg PO BID Changed aspirin 81 mg Tablet,Delayed Release (Dr/Ec) 81 mg PO DAILY Qty: 60 0RF Rx Instructions: Take twice daily for 4 weeks as instructed by ortho Discharge Orders: Discharge Order (Routine); Ordered 04/24/22 Ordered By: Js Villarreal Admission Data Admit Date/Time: 04/18/22 03:03 Attending Provider: Js Villarreal Admit Provider: Horacio Malin Primary Care Provider: PCP,NO Other Providers: Horacio Malin ; Shine Velazco ; Antonoi Llanes ; Williams Syed ; Veronica Pichardo ; Thad Shepherd ; Kenia Moe ; Colton Malcolm ; Benny Torrez ; Lalo Flores ; Rachid Adams ; Benny Peng ; Daniel Murillo ; Oseas Mckeon ; Travis Steele ; Tc Méndez ; Kenia Dinh ; Chalo Ramirez ; Angelica Reagan ; Jason Colorado ; Winifred Siu ; Sylvester Brown ; Agustina Sim ; Kraig Oconnell ; [facility] Other Interventions: Discharge Summary Assessment (RN) Last Done: 04/24/22 12:24
--- NOTE | 2022-05-03 11:10 | Coding Query ---
CODING QUERY To promote full compliance with coding requirements relating to patient care, provider participation is requested in all cases of cath lab manager uncertainty. Please assist us with the question(s) below: Coding Question(s): Please specify below, in your clinical opinion, the diagnosis, most responsible for occasioning the inpatient admission: ( X ) Fracture of proximal humerus, right side ( ) Fracture of the Right Hip. Please specify further below: ( X ) nondisplaced acetabular wall fracture of right hip ( ) fracture, intertrochanteric, right femur ( ) both nondisplaced acetabular fracture of right hip and fracture, intertrochanteric, right femur ( X ) Pneumonia ( X ) Acute Respiratory Failure with Hypoxia ( ) Other: Please Specify Physician's Response(s): Thank you Alejandra Rosa Principal Diagnosis: "that condition established after study, to be chiefly responsible for occasioning the admission of the patient to the hospital for care." Co-Existing Principal Diagnosis: "when two or more diagnoses equally meet the criteria for principal diagnosis as determined by the circumstances of admission, diagnostic work up, and/or therapy provided, and the Alphabetic Index, Tabular List, or another coding guideline does not provide sequencing direction, any one of the diagnoses may be sequenced first." "When the physician has documented what appears to be a current diagnosis in the body of the record, but has not included the diagnosis in the final diagnostic statement, the physician should be asked whether the diagnosis should be added." (Source Coding Clinic 2 QTR90. p3-4) ERICA
== END 2022-04-24 14:20 | DRG 193 ==
LOC: ED 21:38 → 2N 04-18 03:03 → SUATTDRO 04-18 03:03 → 2N 04-18 04:08

== ENCOUNTER 2024-06-15 22:57 | Inpatient (IN) ==
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
[2024-06-15] MEDS: fentaNYL citrate PF 100 MCG/2 ML VIAL ONE (23:38)
[2024-06-15 23:39] LABS: Appearance Urine Clear (Clear); Bilirubin Urine Negative (Negative); Blood Urine Negative (Negative); Color Urine Yellow; Glucose Urine UA Negative (Negative); Ketones Urine Trace (Negative); Leukocyte Esterase Urine Negative (Negative); Nitrite Urine Negative (Negative); Protein Urine Negative (Negative); Specific Gravity Urine 1.021 (1.000-1.030); Urobilinogen Urine Negative (Negative)
[2024-06-16 00:25] LABS: Basophils # (auto) 0.02 K/uL (0.00-0.20); Basophils % (auto) 0.2 %; Eosinophils # (auto) 0.18 K/uL (0.00-0.50); Eosinophils % (auto) 1.7 %; Hematocrit (blood only) 40.7 % (42.0-52.0); Hemoglobin 13.2 g/dl (14.0-18.0); Immature Granulocytes # (auto) 0.03 K/uL (0.01-0.20); Immature Granulocytes % (auto) 0.3 %; Lymphocytes % (auto) 13.1 %; Mean Corpuscular Hemoglobin 30.6 pg (25.0-34.0); Mean Corpuscular Hgb Conc 32.4 g/dL (32.0-36.0); Mean Corpuscular Volume 94.4 fL (80.0-100.0); Mean Platelet Volume 9.5 fL (9.4-12.4); Monocytes # (auto) 0.87 K/uL (0.11-0.59); Monocytes % (auto) 8.2 %; Neutrophils # (auto) 8.16 K/uL (1.40-6.50); Neutrophils % (auto) 76.5 %; Platelet Count 205 K/uL (130-400); RDW Coefficient of Variation 12.7 % (11.5-14.5); RDW Standard Deviation 43.8 fL (36.4-46.3); Red Blood Count 4.31 M/uL (4.70-6.10); White Blood Count 10.66 K/ul (4.8-10.8)
--- NOTE | 2024-06-16 00:28 | XRay Report ---
Exam(s): XR CXR 1 VIEW EXAM: XR Chest, 1 View CLINICAL HISTORY: Reason for exam: pre-op. TECHNIQUE: Frontal view of the chest. COMPARISON: 04/22/22 FINDINGS: Lungs: Emphysema. No consolidation. Pleural space: Unremarkable. No pleural effusion or pneumothorax. Heart: Unremarkable. No cardiomegaly or pulmonary vascular congestion. Bones/joints: Osteopenia. Old bilateral humerus fractures. Old right clavicle fracture. Screw fixation of the proximal left humerus. Old rib fractures. IMPRESSION: No acute findings in the chest. Electronically signed by: Ludwin Delgadillo M.D. 06/16/24 00:27 AM
--- NOTE | 2024-06-16 00:35 | XRay Report ---
Exam(s): XR HIP + PELVIS, 1 view EXAM: XR Left Hip With Pelvis When Performed, 2 or 3 Views CLINICAL HISTORY: Reason for exam: fall. TECHNIQUE: Two or three views of the left hip with pelvis when performed. COMPARISON: No relevant prior studies available. FINDINGS: Bones/joints: Acute displaced and angulated intratrochanteric fracture of the left femur. No other acute fractures. No dislocation. Osteopenia. Possible old right inferior pubic ramus fracture. Prior open reduction and internal fixation of the right femur with intramedullary nail and proximal interlocking dynamic hip screw. Heterotopic ossification superior to the right greater trochanter and along the right femoral shaft. Possible osteochondroma of the left femoral shaft. Soft tissues: Soft tissue swelling of the upper left thigh. IMPRESSION: Acute displaced and angulated intratrochanteric fracture of the left femur. Electronically signed by: Ludwin Delgadillo M.D. 06/16/24 00:35 AM
[2024-06-16 00:43] LABS: Albumin Globulin Ratio 1.7 (0.9-2); Albumin Level 4.2 gm/dl (3.4-5.0); Bilirubin,Total 0.3 mg/dl (0.2-1.0); Calcium 8.9 mg/dl (8.6-10.3); Creatinine Clr Calc Pharmacy 80.7 ml/min; Globulin 2.5 gm/dl (2.5-4.0); Potassium 4.4 mmol/L (3.5-5.1); Total Protein 6.7 gm/dl (6.0-8.3)
--- NOTE | 2024-06-16 00:44 | Emergency Department Note ---
ED Visit Note I was consulted by the Advanced Practice Provider. I personally made/approved the management plan and take responsibility for the patient management. I performed a substantive portion of the visit. Case was reviewed with Yaz Elmore PA-C. This includes x-ray of the chest and hip indicating a left intertrochanteric hip fracture. Patient will be evaluated by the hospitalist service for admission, orthopedic consultation and further management. Please refer to Yaz Elmore PA-C's notes for further details of the history, physical and visit. .
[2024-06-16] MEDS: fentaNYL citrate PF 100 MCG/2 ML VIAL IV PRN (00:49)
[2024-06-16 01:03] LABS: Partial Thromboplastin Time 27 Seconds (21-31); Prothrombin Time 11.3 Seconds (9.0-12.0)
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
[2024-06-16] MEDS ORDERED: bisacodyL 10 MG SUPP PR PRN (03:08)
[2024-06-16] MEDS ORDERED: IPRATROPIUM BROMIDE/ALBUTEROL respimat INH INH PRN (03:08)
[2024-06-16] MEDS ORDERED: HYDROmorphone INJ 0.5 MG/0.5 ML SYR IV PRN (03:08)
[2024-06-16] MEDS ORDERED: CALCIUM CARBONATE 500 MG CHEWABLE TAB PO PRN (03:29)
[2024-06-16] MEDS ORDERED: IPRATROPIUM BROMIDE HFA INHALER INH PRN (03:32)
[2024-06-16] MEDS ORDERED: ALBUTEROL HFA 8 GM INHALER INH PRN (03:32)
[2024-06-16] MEDS: SODIUM CHLORIDE 0.9% 1,000 ML IV SCH (03:50)
[2024-06-16] MEDS: HYDROmorphone INJ 0.5 MG/0.5 ML SYR IV PRN (03:51)
[2024-06-16 07:33] LABS: Basophils # (auto) 0.03 K/uL (0.00-0.20); Basophils % (auto) 0.2 %; Eosinophils # (auto) 0.01 K/uL (0.00-0.50); Eosinophils % (auto) 0.1 %; Hematocrit (blood only) 34.4 % (42.0-52.0); Hemoglobin 11.3 g/dl (14.0-18.0); Immature Granulocytes # (auto) 0.07 K/uL (0.01-0.20); Immature Granulocytes % (auto) 0.5 %; Lymphocytes # (auto) 1.29 K/uL (1.20-3.40); Lymphocytes % (auto) 8.4 %; Mean Corpuscular Hemoglobin 31.6 pg (25.0-34.0); Mean Corpuscular Hgb Conc 32.8 g/dL (32.0-36.0); Mean Corpuscular Volume 96.1 fL (80.0-100.0); Mean Platelet Volume 9.9 fL (9.4-12.4); Monocytes # (auto) 1.53 K/uL (0.11-0.59); Neutrophils # (auto) 12.39 K/uL (1.40-6.50); Neutrophils % (auto) 80.8 %; Platelet Count 225 K/uL (130-400); RDW Coefficient of Variation 12.7 % (11.5-14.5); RDW Standard Deviation 43.8 fL (36.4-46.3); Red Blood Count 3.58 M/uL (4.70-6.10); White Blood Count 15.32 K/ul (4.8-10.8)
[2024-06-16 07:55] LABS: BUN Creatinine Ratio 23.6 (10-20); Calcium 8.6 mg/dl (8.6-10.3); Creatinine Clr Calc Pharmacy 82.9 ml/min; Magnesium 1.6 mg/dl (1.7-2.4); Potassium 5.3 mmol/L (3.5-5.1)
--- NOTE | 2024-06-16 08:51 | Communication Note ---
Date of Service: June 16, 2024 Patient was seen and briefly examined in the emergency room, he is a 69-year-old gentleman resident at [facility] with history of COPD, prior traumatic brain injury, seizure disorder who apparently had a fall and had left hip fracture, patient is waiting to be seen by orthopedics at this point. He had minimal leukocytosis of 15,000 with potassium of 5.3 this morning, magnesium of 1.6 normal urinalysis, the report of his imaging was reviewed showing acute displaced and angulated intertrochanteric fracture of the left femur. Continue monitoring and await input by orthopedics. Replete magnesium.
[2024-06-16] MEDS: MAGNESIUM SULFATE / D5W 1 GM/100 ML BAG IV ONE (09:11)
[2024-06-16] MEDS: ASPIRIN 81 MG ECTAB PO SCH (09:25)
[2024-06-16] MEDS: SERTRALINE HCL 50 MG TABLET PO SCH (09:25)
[2024-06-16] MEDS: CEROVITE ADV FORMULA TAB PO SCH (09:25)
[2024-06-16] MEDS: DIVALPROEX DELAY RELEASE 125 MG TABEC PO SCH (09:25)
[2024-06-16] MEDS: BACLOFEN 10 MG TAB PO SCH (09:26)
[2024-06-16] MEDS: PHENYTOIN SODIUM ER 100 MG CAP PO SCH (09:26)
[2024-06-16] MEDS: FLUTICASONE/VILANTEROL 100/25MCG 14 PUFFS/INHALER INH SCH (09:26)
[2024-06-16] MEDS ORDERED: ONDANSETRON INJ 2 MG/ML 2 ML VIAL IV PRN ×2 (10:39→15:09)
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
[2024-06-16] MEDS ORDERED: ROCURONIUM BROMIDE 10 MG/ML 5 ML VIAL IV ONE (14:15)
[2024-06-16] MEDS ORDERED: PROPOFOL IV EMULSION 10 MG/ML 20 ML VIAL IV ONE (14:15)
[2024-06-16] MEDS ORDERED: LIDOCAINE 2% 2 ML VIAL/AMP(20MG/ML) INFIL ONE (14:15)
[2024-06-16] MEDS ORDERED: ONDANSETRON INJ 2 MG/ML 2 ML VIAL ONE (14:24)
[2024-06-16] MEDS ORDERED: DEXAMETHASONE SOD INJ 4 MG/ML VIAL ONE (14:24)
[2024-06-16] MEDS ORDERED: ACETAMINOPHEN 1000 MG/100 ML IV IV ONE (14:27)
--- NOTE | 2024-06-16 14:55 | Anesthesiology Consultation ---
Date of Service June 16, 2024 Assessment & Plan Chart Review Chart Review: Acceptable Risk for Surgery and Patient NOT seen in Pre Admission Testing Consults Requested none ASA ASA3 Proposed Anesthesia Anesthesia Type: General History Surgery Operation Date: 06/16/24 08:40 Proposed Procedures p Left Intermediate Trochanteric Femoral Nail - Keegan Montez Brown MD Height/Weight Height: 5 ft 7 in Weight: 61.4 kg Allergies Allergy/AdvReac Type Severity Reaction Status Date / Time No Known Allergies Allergy Unknown Verified 09/22/22 02:08 Medications Home Medications Medication Instructions Recorded Confirmed Last Taken aspirin 81 mg tablet,delayed 81 mg PO DAILY 06/16/24 06/16/24 Unknown release baclofen 5 mg tablet 5 mg PO BID 06/16/24 06/16/24 Unknown bisacodyl 10 mg rectal suppository 10 mg [place] DAILY PRN Constipation 06/16/24 06/16/24 Unknown (Dulcolax (bisacodyl)) calcium carbonate 650 mg PO QID PRN Heartburn 06/16/24 06/16/24 Unknown divalproex 125 mg tablet,delayed 125 mg PO BID 06/16/24 06/16/24 Unknown release (Depakote) fluticasone furoate 100 1 inh inhalation DAILY 06/16/24 06/16/24 Unknown mcg-vilanterol 25 mcg/dose inhalation powder (Breo Ellipta) ipratropium 20 mcg-albuterol 100 1 puff inhalation Q6H PRN 06/16/24 06/16/24 Unknown mcg/actuation mist for inhalation Shortness Of Breath Or Wheezing (Combivent Respimat) multivitamin with minerals 1 tab PO DAILY 06/16/24 06/16/24 Unknown phenytoin sodium extended 100 mg 100 mg PO DAILY 06/16/24 06/16/24 Unknown capsule phenytoin sodium extended 30 mg 60 mg PO HS 06/16/24 06/16/24 Unknown capsule (Dilantin) sertraline 25 mg tablet (Zoloft) 25 mg PO DAILY 06/16/24 06/16/24 Unknown Active Medications Generic Name Dose Route Start Last Admin Trade Name Freq PRN Reason Stop Dose Admin Aspirin 81 mg 06/16/24 09:00 06/16/24 09:25 Aspirin 81 Mg Ectab PO 07/16/24 08:59 81 mg DAILY RAFAEL Administration Baclofen 5 mg 06/16/24 09:00 06/16/24 09:26 Baclofen 10 Mg Tab PO 07/16/24 08:59 5 mg BID RAFAEL Administration Divalproex Sodium 125 mg 06/16/24 09:00 06/16/24 09:25 Divalproex Delay Release 125 Mg Tabec PO 07/16/24 08:59 125 mg BID RAFAEL Administration Fluticasone/Vilanterol 1 puffs 06/16/24 09:00 06/16/24 09:26 Fluticasone/Vilanterol 100/25mcg 14 Puffs/Inhaler INH 07/16/24 08:59 1 puffs DAILY RAFAEL Administration Hydromorphone HCl 0.5 mg 06/16/24 03:08 06/16/24 09:25 Hydromorphone Inj 0.5 Mg/0.5 Ml Syr IV 06/30/24 03:07 0.5 mg Q4H PRN Administration Severe Pain (Scale 7, 8, 9,10) Sodium Chloride 1,000 mls @ 100 mls/hr 06/16/24 03:08 06/16/24 13:50 Nss IV 06/17/24 03:07 100 mls/hr .Q10H RAFAEL Administration Multivitamins/Minerals 1 tab 06/16/24 09:00 06/16/24 09:25 Cerovite Adv Formula Tab PO 07/16/24 08:59 1 tab DAILY RAFAEL Administration Phenytoin Sodium 100 mg 06/16/24 09:00 06/16/24 09:26 Phenytoin Sodium Er 100 Mg Cap PO 07/16/24 08:59 100 mg DAILY RAFAEL Administration Sertraline HCl 25 mg 06/16/24 09:00 06/16/24 09:25 Sertraline Hcl 50 Mg Tablet PO 07/16/24 08:59 25 mg DAILY RAFAEL Administration Past Medical History Medical History Elevated Dilantin level Acute respiratory failure with hypoxia Pneumonia Fracture, intertrochanteric, right femur Dysarthria Right wrist fracture Poor historian PMH/PSH provided by caregiver, Blaire --> admits not entirely sure of complete med/surg history - has been caring for pt x 5 years - no family per caregiver. Ambulatory dysfunction Smokers' cough ASCVD Ao Emphysema Hx/o seizures anemia frequent falls TBI Exercise / Class Metabolic Activity III < 4 Walking/Shop/Light housework Past Surgical History Surgical History History of shoulder surgery Status post left foot surgery History of ear surgery Past Anesthesia History No Hx of Anesthesia Complications and No Family Hx of Anesthesia Complications History of PONV No Hx of PONV and No Hx of Motion Sickness Social History Smoking Status: Current every day smoker tobacco type: cigarettes Smoking cigarettes per day: 1.5 ppd Do You Dip or Chew Tobacco: No Hx Alcohol Use: No Hx Substance Use: No substance use type: does not use Last Used Substance Other:: last used in Physical Exam Vital Signs Last Vital Signs Temp 37.4 C 06/16/24 14:49 Pulse 98 H 06/16/24 14:49 Resp 22 06/16/24 14:49 BP 118/73 06/16/24 14:49 Pulse Ox 96 06/16/24 14:49 O2 Del Method Nasal Cannula 06/16/24 14:49 O2 Flow Rate 2 06/16/24 14:49 Testing Laboratory Results 06/16/24 06:49 06/16/24 06:49 PT 11.3 Seconds (9.0-12.0) 06/16/24 00:10 INR 1.0 (0.9-1.1) 06/16/24 00:10 APTT 27 Seconds (21-31) 06/16/24 00:10 Urine Color Yellow 06/15/24 23:30 Urine Appearance Clear (Clear) 06/15/24 23:30 Urine pH 5.0 (4.5-7.5) 06/15/24 23:30 Ur Specific [place] 1.021 (1.000-1.030) 06/15/24 23:30 Urine Protein Negative (Negative) 06/15/24 23:30 Urine Glucose (UA) Negative (Negative) 06/15/24 23:30 Urine Ketones Trace (Negative) H 06/15/24 23:30 Urine Nitrite Negative (Negative) 06/15/24 23:30 Ur Leukocyte Esterase Negative (Negative) 06/15/24 23:30 Electrocardiogram Date: 06/15/24 Findings: + NSR @ (@ 81) Chest X-Ray Date: 06/15/24 Findings: + NAD and + other (C/W emphysema)
[2024-06-16] MEDS ORDERED: ATROPINE SULFATE 0.1 MG/ML 10ML SYR IV PRN (15:09)
[2024-06-16] MEDS ORDERED: ePHEDrine sulfate 50 MG/ML AMP IV PRN (15:09)
[2024-06-16] MEDS ORDERED: fentaNYL citrate PF 100 MCG/2 ML VIAL IV PRN (15:09)
[2024-06-16] MEDS: ceFAZolin 2000MG 2,000 MG/15 ML SYR IV SCH (15:20)
[2024-06-16] MEDS ORDERED: fentaNYL citrate PF 100 MCG/2 ML VIAL ONE ×2 (15:22→16:40)
[2024-06-16 15:31] LABS: iSTAT Creatinine 0.7 mg/dl (0.6-1.3); iSTAT Hemoglobin 10.5 g/dl (14.0-18.0); iSTAT Ionized Calcium 1.21 mmol/l (1.12-1.32); iSTAT Potassium 4.9 mmol/L (3.3-5.0)
[2024-06-16] MEDS: ceFAZolin 1000MG 1,000 MG/7.5 ML SYR IV ONE (16:24)
[2024-06-16] MEDS ORDERED: ceFAZolin 330 MG/ML 1 GM VIAL ONE (16:36)
[2024-06-16] MEDS: TRANEXAMIC ACID / 0.7% NACL 1,000 MG/100 ML BAG IV ONE ×2 (16:49→22:40)
[2024-06-16] MEDS ORDERED: SUGAMMADEX SODIUM 200 MG/2 ML VIAL IV ONE (17:11)
[2024-06-16] MEDS ORDERED: PHENYLEPHRINE HCL 10 MG/ML VIAL ONE (17:21)
[2024-06-16] MEDS: BUPIVACAINE 0.5 % 5 MG/1 ML MPF 30ML VIAL ONE (17:22)
[2024-06-16] MEDS: LIDOCAINE 1%/EPINEPHRINE 1:100,000 50 ML VIAL ONE (17:23)
--- NOTE | 2024-06-16 17:27 | Electrocardiogram Report ---
Test Reason : Blood Pressure : */* mmHG Vent. Rate : 81 BPM Atrial Rate : 81 BPM P-R Int : 190 ms QRS Dur : 78 ms QT Int : 390 ms P-R-T Axes : 65 34 69 degrees QTcB Int : 453 ms Normal sinus rhythm Normal ECG When compared with ECG of 17-Apr-2022 21:52, No significant change was found Confirmed by Arsenio Hernadez ([id number]) on 06/16/2024 5:27:23 PM Referred By: REFERRED SELF Confirmed By: Arsenio Hernadez
--- NOTE | 2024-06-16 17:32 | Post Operative Brief Note ---
Immediate Post Op Note Date of Surgery June 16, 2024 Pre & Post Diagnosis Operation Date: 06/16/24 08:40 Pre-Op Diagnosis: Closed fracture of left hip Post-Op Diagnosis: Closed fracture of left hip I identified the patient and participated in the time-out.: Yes Procedure Operation Date: 06/16/24 08:40 Actual Procedures p Open Reduction Internal Fixation of Left Hip Fracture(Left) - Keegan Brown MD Surgeon Keegan Brown MD Drilling Engineering Manager Cathi Govea DO Estimated Blood Loss 100 Findings Consistent with Post-Op Diagnosis Fluids 1000 cc Anesthesia Type General Complications none
--- NOTE | 2024-06-16 17:33 | Operative Report ---
Post Operative Report Pre & Post Diagnosis Operation Date: 06/16/24 08:40 Pre-Op Diagnosis: Closed fracture of left hip Post-Op Diagnosis: Closed fracture of left hip I identified the patient and participated in the time-out.: Yes Procedure Operation Date: 06/16/24 08:40 Actual Procedures p Open Reduction Internal Fixation of Left Hip Fracture(Left) - Keegan Brown MD Surgeon Keegan Brown MD Natural Resource Specialist Cathi Govea DO Estimated Blood Loss 100 Findings See Below Displaced, comminuted, left hip intra-trochanteric fracture Fluids 1000 cc Specimens n/a Drains Mireles Anesthesia Type General Complications none Indications The patient is a 69 year old male who sustained a left hip fracture from a ground level fall. The patients treatment options of conservative versus surgical intervention were discussed. Since the patient was an ambulatory prior to the injury and to avoid the risks of bed sores, pulmonary complications, and to give the best chance for ambulation, I recommended surgery. The patient understands the risks of surgery, which include but are not limited to: bleeding, infection, re-operation, damage to nerves and arteries, continued pain, failure of the hardware, mal-union, non-union, DVT, and . In addition the patient is aware of the 20-30% morbidity associated with hip fracture for up to 1 year following a hip fracture. The patient understands all of these instructions and explanations, all of their questions have been satisfactorily addressed. The patient has elected to proceed with surgery and the informed consent was signed. Description of Procedure IMPLANTS: 1) 12 mm short Troch nail (Synthes). 2) 12 x 95 mm helical screw. 3) 5 x 42 mm locking screw. Procedure: The patient was taken to the Operating Room and placed in the supine position on the fracture table after general anesthesia was administered. A multidisciplinary time-out was performed identifying my initials on the left lower limb as the correct and operative limb. Prior to the incision being made, 2 grams of intravenous Ancef were given. Fluoroscopy was brought in to ensure adequate x-rays images could be obtained. A reduction was performed with traction, adduction, and internal rotation of the operative limb. Once this was confirmed with Fluro, the left lower extremity was prepped in the standard fashion. The trochanter was marked as was the planned incision and trajectory of the helical screw. The incisions were injected with a 50:50 mixture of 1% Lidocaine plain and 0.5% Bupivacaine with epinephrine for a total of 10cc. The planned incision proximal to the greater trochanter was made and carried down through the Tensor Fascia Melissa to expose the tip of the greater trochanter and the starting position. A starting guide wire was placed and the starting reamer was used to create the entry hole for the short implant. A size 12 was selected. The implant was then inserted without difficulty. A second incision was made for placement of the helical blade and distal locking screw. These were placed through the aiming guide in the standard fashion. The Helical blade was locked in place. The traction was released. Final x-rays were obtained showing TAD of less than 25mm. The wounds were copiously irrigated. The Tensor Fascia Melissa and IT Band was closed with 0 Vicryl. The subcutaneous tissue was closed with 3-0 Vicryl. The skin was closed with evelio. The incisions were covered with Xeroform, 4x4s, ABD, and foam tape. The patient was transfer to her hospital bed and taken to the PACU in stable condition. The sponge and needle counts were correct. Post-op Instructions: The patient was admitted to the hospitalist service. The patient will be WBAT with a walker. The patient will be seen by PT/OT. Labs will be checked in the am. DVT prophylaxis will be with TEDs, mechanical devices and 81 mg ASA BID x 3 weeks. I attest to the content of the Intraoperative Record and any orders documented therein. Any exceptions are noted below.
--- NOTE | 2024-06-16 17:45 | Operative Report ---
Post Operative Report Pre & Post Diagnosis Operation Date: 06/16/24 08:40 Pre-Op Diagnosis: Closed fracture of left hip Post-Op Diagnosis: Closed fracture of left hip I identified the patient and participated in the time-out.: Yes Procedure Operation Date: 06/16/24 08:40 Actual Procedures p Open Reduction Internal Fixation of Left Hip Fracture(Left) - Keegan Brown MD Surgeon Keegan Brown MD Equipment Processor Cathi Govea DO Estimated Blood Loss 100 Findings Consistent with Post-Op Diagnosis Specimens None Description of Procedure Patient was brought to the operative suite where he underwent anesthesia. Left intertrochanteric femur fracture was closed reduced. Left lower extremity was prepped and draped in usual sterile fashion. A surgical timeout was performed. The patient underwent a left intertrochanteric femur fracture closed reduction with internal fixation using a cephalomedullary nail. Please see Dr. Brown's operative report for full details. I was present and assisted with patient positioning, limb positioning, fracture reduction, surgical approach, hardware placement, wound closure, postoperative dressing placement. The patient was awakened taken to the recovery room in satisfactory condition. I attest to the content of the Intraoperative Record and any orders documented therein. Any exceptions are noted below.
--- NOTE | 2024-06-16 18:31 | Anesthesiology Progress Note ---
Date of Service June 16, 2024 Anesthesia Post Procedure Vital Signs Vital Signs: Temp Pulse Pulse Resp BP BP Pulse Ox 06/16/24 18:20 97.5 F L 92 H 16 135/94 94 06/16/24 18:10 90 14 104/73 96 06/16/24 18:00 88 16 115/79 98 06/16/24 17:50 79 16 138/72 99 06/16/24 17:43 98.2 F 86 14 137/76 99 06/16/24 14:49 99.3 F 98 H 22 118/73 96 06/16/24 11:09 16 96 06/16/24 09:00 06/16/24 09:00 97.5 F L 100 H 18 107/72 96 06/16/24 08:01 101 H 15 106/72 95 06/16/24 07:18 95 H 06/16/24 07:00 103 H 20 107/88 95 06/16/24 04:00 103 H 20 110/75 95 06/16/24 04:00 06/16/24 01:30 88 18 122/86 92 06/16/24 01:03 85 12 94/77 L 93 06/16/24 00:36 90 16 126/94 93 06/16/24 00:12 88 20 94 06/15/24 23:45 87 L 06/15/24 23:30 86 14 94 06/15/24 23:04 85 06/15/24 22:52 97.7 F 88 16 139/88 95 Pulse Ox O2 Del Method O2 Del Method O2 Flow Rate 06/16/24 18:20 Nasal Cannula 2 06/16/24 18:10 Nasal Cannula 2 06/16/24 18:00 Oxymask 4 06/16/24 17:50 Oxymask 4 06/16/24 17:43 Oxymask 8 06/16/24 14:49 Nasal Cannula 2 06/16/24 11:09 Nasal Cannula 2 06/16/24 09:00 Nasal Cannula 2 06/16/24 09:00 Nasal Cannula 3 06/16/24 08:01 Room Air 06/16/24 07:18 06/16/24 07:00 Room Air 06/16/24 04:00 Nasal Cannula 06/16/24 04:00 94 Nasal Cannula 06/16/24 01:30 Nasal Cannula 2 06/16/24 01:03 Nasal Cannula 2 06/16/24 00:36 Nasal Cannula 2 06/16/24 00:12 Nasal Cannula 2 06/15/24 23:45 Room Air, Nasal Cannula 06/15/24 23:30 Nasal Cannula 2 06/15/24 23:04 06/15/24 22:52 Nasal Cannula 2 Pain Intensity Left Hip: Pain Intensity: 10 Transfer of Care Handoff Completed per policy Notes Mental Status: alert / awake / arousable and participated in evaluation Patient Amnestic to Procedure: Yes Nausea / Vomiting: adequately controlled Pain: adequately controlled Airway Patency, RR, SpO2: stable & adequate BP & HR: stable & adequate Hydration State: stable & adequate Anesthetic Complications: no major complications apparent and Pt Satisfied with anesthetic care
[2024-06-16] MEDS: PHENYTOIN SODIUM ER 30 MG CAP PO SCH (20:15)
[2024-06-17] MEDS: ceFAZolin 2000MG 2,000 MG/15 ML SYR IV SCH (00:36)
[2024-06-17] MEDS: NICOTINE 21 MG/24 HR TDSY TD SCH (05:24)
[2024-06-17 06:25] LABS: Calcium 7.9 mg/dl (8.6-10.3); Magnesium 1.7 mg/dl (1.7-2.4); Potassium 4.8 mmol/L (3.5-5.1)
[2024-06-17 06:30] LABS: BUN Creatinine Ratio 26.1 (10-20); Creatinine Clr Calc Pharmacy 86.5 ml/min
[2024-06-17 06:45] LABS: Basophils # (auto) 0.03 K/uL (0.00-0.20); Basophils % (auto) 0.2 %; Hematocrit (blood only) 26.2 % (42.0-52.0); Hemoglobin 8.3 g/dl (14.0-18.0); Immature Granulocytes # (auto) 0.07 K/uL (0.01-0.20); Immature Granulocytes % (auto) 0.5 %; Lymphocytes # (auto) 1.51 K/uL (1.20-3.40); Lymphocytes % (auto) 10.4 %; Mean Corpuscular Hemoglobin 30.9 pg (25.0-34.0); Mean Corpuscular Hgb Conc 31.7 g/dL (32.0-36.0); Mean Corpuscular Volume 97.4 fL (80.0-100.0); Mean Platelet Volume 10.6 fL (9.4-12.4); Monocytes # (auto) 1.69 K/uL (0.11-0.59); Monocytes % (auto) 11.6 %; Neutrophils # (auto) 11.27 K/uL (1.40-6.50); Neutrophils % (auto) 77.3 %; Platelet Count 163 K/uL (130-400); Platelet Estimate Normal (Normal); Polychromasia 1+; RDW Standard Deviation 46.1 fL (36.4-46.3); Red Blood Count 2.69 M/uL (4.70-6.10); White Blood Count 14.57 K/ul (4.8-10.8)
[2024-06-17] MEDS: ASPIRIN 81 MG ECTAB PO SCH (07:50)
[2024-06-17] MEDS: POLYETHYLENE (MIRALAX) 17 GM PACK PO PRN (07:54)
[2024-06-17] MEDS ORDERED: traMADol HCL 50 MG TABLET PO PRN (08:30)
--- NOTE | 2024-06-17 08:37 | Hospitalist Progress Note ---
Date of Service June 17, 2024 Assessment & Plan (1) Closed fracture of left hip: Plan: Status post ORIF of the left hip, follow with postop recommendation by orthopedics, and initially wanted to start him on tramadol however due to his history of seizures, will convert to instant release opioids to be used cautiously. (2) Seizure disorder: Plan: Continue with home dose of phenytoin and Depakote. (3) ABLA (acute blood loss anemia): Plan: Hemoglobin dropped to 8.3 from 11.3 yesterday, likely because of blood loss during surgery, monitor and transfuse as needed. Plan Awaiting formal PT and OT assessment although this is going to be difficult assessment, patient is from SNF and so I imagine that he would be returning to SNF, will today work on his pain control and will communicate with case management to sort out his his transfer back to his original facility. Admission and Anticipated Discharge Date Admission Date: June 16, 2024 Subjective Patient is a 69-year-old gentleman resident at [facility] with history of COPD, prior traumatic brain injury, seizure disorder who apparently had a fall and had left hip fracture, patient was seen by orthopedics and was taken for open reduction internal fixation of left hip on 06/16/2024. Patient was seen and examined today, his pain medication will be addressed, he is difficult to understand because of his expressive aphasia. Otherwise no issues reported overnight. Case was discussed with nurse at bedside. Physical Exam Physical Exam: VITALS: Reviewed. WEIGHT/BMI reviewed. CV: RRR, no m/r/g. LUNGS: CTAB, no w/r/c. EXT: status post left ORIF Results & Data Results & Data Vital Signs (Past 12 Hours) Vital Signs Temp Pulse Pulse Resp BP Pulse Ox O2 Del Method 06/17/24 07:10 36.9 C 97 H 18 119/77 94 Nasal Cannula 06/17/24 03:22 36.3 C L 100 H 18 121/76 95 Nasal Cannula 06/16/24 23:24 36.5 C 96 H 18 119/75 94 Nasal Cannula 06/16/24 21:55 Nasal Cannula 06/16/24 21:45 36.4 C L 89 18 106/71 96 Nasal Cannula 06/16/24 20:45 36.6 C 99 H 18 112/72 96 Nasal Cannula O2 Flow Rate 06/17/24 07:10 1 06/17/24 03:22 2 06/16/24 23:24 2 06/16/24 21:55 2 06/16/24 21:45 2 06/16/24 20:45 2 Laboratory Results Laboratory Results - last 24 hr 06/16/24 06/16/24 06/17/24 00:15 15:16 05:40 WBC 14.57 H RBC 2.69 L Hgb 8.3 L D POC Hgb 10.5 L Hct 26.2 L POC Hct 31 L MCV 97.4 MCH 30.9 MCHC 31.7 L RDW Std Deviation 46.1 RDW Coeff of Lulú 13.0 Plt Count 163 MPV 10.6 Immature Gran % (Auto) 0.5 Neut % (Auto) 77.3 Lymph % (Auto) 10.4 [place] % (Auto) 11.6 Eos % (Auto) 0.0 Baso % (Auto) 0.2 Neut # (Auto) 11.27 H Lymph # (Auto) 1.51 [place] # (Auto) 1.69 H Eos # (Auto) 0.00 Baso # (Auto) 0.03 Immature Gran # (Auto) 0.07 Platelet Estimate Normal Polychromasia 1+ POC Sodium 140 Sodium 138 POC Potassium 4.9 Potassium 4.8 POC Chloride 101 Chloride 108 H Carbon Dioxide 26 POC Total CO2 26 Anion Gap 4 POC Anion Gap 19.0 POC BUN 17 BUN 18 Creatinine 0.69 POC Creatinine 0.7 Est Cr Clr Drug Dosing 86.5 eGFR 99.56 BUN/Creatinine Ratio 26.1 H Glucose 143 H POC Glucose (other) 134 H Calcium 7.9 L POC Ioniz Calcium Ugo 1.21 Magnesium 1.7 25-OH Vitamin D Total 21.3 L Blood Type O Positive Antibody Screen NEGATIVE Medications Administered Current Inpatient Medications Albuterol (Albuterol Hfa 8 Gm Inhaler) 1 puffs INH Q6H PRN; Protocol PRN Reason: SOB/WHEEZING Stop: 07/16/24 03:31 Aspirin (Aspirin 81 Mg Ectab) 81 mg PO BID [facility] Stop: 07/17/24 08:59 Last Admin: 06/17/24 07:50 Dose: 81 mg Baclofen (Baclofen 10 Mg Tab) 5 mg PO BID [facility] Stop: 07/16/24 08:59 Last Admin: 06/17/24 07:51 Dose: 5 mg Bisacodyl (Bisacodyl 10 Mg Supp) 10 mg LA DAILY PRN PRN Reason: Constipation Stop: 07/16/24 03:07 Calcium Carbonate (Calcium Carbonate 500 Mg Chewable Tab) 500 mg PO QID PRN PRN Reason: Heartburn Stop: 07/16/24 03:28 Divalproex Sodium (Divalproex Delay Release 125 Mg Tabec) 125 mg PO BID [facility] Stop: 07/16/24 08:59 Last Admin: 06/17/24 07:50 Dose: 125 mg Fluticasone/Vilanterol (Fluticasone/Vilanterol 100/25mcg 14 Puffs/Inhaler) 1 p uffs INH DAILY [facility] Stop: 07/16/24 08:59 Last Admin: 06/17/24 07:54 Dose: 1 puffs Hydromorphone HCl (Hydromorphone Inj 0.5 Mg/0.5 Ml Syr) 0.25 mg IV Q4H PRN PRN Reason: Moderate Pain (Scale 4, 5, 6) Stop: 06/30/24 03:07 Hydromorphone HCl (Hydromorphone Inj 0.5 Mg/0.5 Ml Syr) 0.5 mg IV Q4H PRN PRN Reason: Severe Pain (Scale 7, 8, 9,10) Stop: 06/30/24 03:07 Last Admin: 06/17/24 07:47 Dose: 0.5 mg Cefazolin Sodium (Ancef 2000mg) 2,000 mg in 15 mls @ 3.75 mls/min IV Q8H [facility]; Protocol Stop: 06/17/24 08:33 Last Admin: 06/17/24 07:41 Dose: 3.75 mls/min Ipratropium Ethel (Ipratropium Ethel Hfa Inhaler) 1 puffs INH Q6H PRN; Protocol PRN Reason: SOB/WHEEZING Stop: 07/16/24 03:31 Miscellaneous (Remove Nicoderm Patch) 1 each N/A DAILY@0859 [facility] Stop: 07/18/24 08:58 Multivitamins/Minerals (Cerovite Adv Formula Tab) 1 tab PO DAILY [facility] Stop: 07/16/24 08:59 Last Admin: 06/17/24 07:51 Dose: 1 tab Nicotine (Nicotine 21 Mg/24 Hr Tdsy) 1 patch TD DAILY RAFAEL Stop: 07/17/24 05:14 Last Admin: 06/17/24 05:24 Dose: 1 patch Ondansetron HCl (Ondansetron Inj 2 Mg/Ml 2 Ml Vial) 4 mg IV Q6H PRN PRN Reason: Nausea/Vomiting Stop: 07/16/24 10:38 Oxycodone HCl (Oxycodone Hcl Ir 5 Mg Tab (Immediate Release)) 5 mg PO Q6 PRN PRN Reason: pain Stop: 07/01/24 08:30 Phenytoin Sodium (Phenytoin Sodium Er 100 Mg Cap) 100 mg PO DAILY RAFAEL Stop: 07/16/24 08:59 Last Admin: 06/17/24 07:50 Dose: 100 mg Phenytoin Sodium (Phenytoin Sodium Er 30 Mg Cap) 60 mg PO HS RAFAEL Stop: 07/16/24 20:59 Last Admin: 06/16/24 20:15 Dose: 60 mg Polyethylene Glycol (Polyethylene (Miralax) 17 Gm Pack) 17 gm PO DAILY PRN PRN Reason: Constipation Stop: 07/16/24 03:07 Last Admin: 06/17/24 07:54 Dose: 17 gm Sertraline HCl (Sertraline Hcl 50 Mg Tablet) 25 mg PO DAILY RAFAEL Stop: 07/16/24 08:59 Last Admin: 06/17/24 07:50 Dose: 25 mg (1) Closed fracture of left hip Encounter type: initial encounter Qualified Code(s): S72.002A - Fracture of unspecified part of neck of left femur, initial encounter for closed fracture
--- NOTE | 2024-06-17 09:55 | Orthopedic Progress Note ---
Date of Service June 17, 2024 Assessment & Plan (1) Closed fracture of left hip: Plan: POD # 1 s/p ORIF left hip fracture Acute anemia blood loss, Hgb 8.3, will continue to monitor WBAT with walker Resume diet. PT/OT DVT prophylaxis: TEDs, SCD's while in hospital, ASA 81 mg PO BID x 3 weeks Continue pain control Ice left hip D/C Planning Continue care per primary service Admission and Anticipated Discharge Date Admission Date: June 16, 2024 Subjective No complaints Physical Exam Physical Exam: LLE sensation to light touch intact distally. 2+ DP pulse. Able to wiggle toes and ankle. Dressing clean, dry, intact Results & Data Vital Signs (Past 12 Hours) Vital Signs Temp Pulse Pulse Resp BP Pulse Ox O2 Del Method 06/17/24 07:10 36.9 C 97 H 18 119/77 94 Nasal Cannula 06/17/24 03:22 36.3 C L 100 H 18 121/76 95 Nasal Cannula 06/16/24 23:24 36.5 C 96 H 18 119/75 94 Nasal Cannula 06/16/24 21:55 Nasal Cannula O2 Flow Rate 06/17/24 07:10 1 06/17/24 03:22 2 06/16/24 23:24 2 06/16/24 21:55 2 Laboratory Results 06/17/24 06/16/24 06/16/24 Range/Units 05:40 15:16 00:15 WBC 14.57 H (4.8-10.8) K/ul RBC 2.69 L (4.70-6.10) M/uL Hgb 8.3 L D (14.0-18.0) g/dl POC Hgb 10.5 L (14.0-18.0) g/dl Hct 26.2 L (42.0-52.0) % POC Hct 31 L (42-52) % MCV 97.4 (80.0-100.0) fL MCH 30.9 (25.0-34.0) pg MCHC 31.7 L (32.0-36.0) g/dL RDW Std Deviation 46.1 (36.4-46.3) fL RDW Coeff of Lulú 13.0 (11.5-14.5) % Plt Count 163 (130-400) K/uL MPV 10.6 (9.4-12.4) fL Immature Gran % (Auto) 0.5 % Neut % (Auto) 77.3 % Lymph % (Auto) 10.4 % [place] % (Auto) 11.6 % Eos % (Auto) 0.0 % Baso % (Auto) 0.2 % Neut # (Auto) 11.27 H (1.40-6.50) K/uL Lymph # (Auto) 1.51 (1.20-3.40) K/uL [place] # (Auto) 1.69 H (0.11-0.59) K/uL Eos # (Auto) 0.00 (0.00-0.50) K/uL Baso # (Auto) 0.03 (0.00-0.20) K/uL Immature Gran # (Auto) 0.07 (0.01-0.20) K/uL Platelet Estimate Normal (Normal) Polychromasia 1+ POC Sodium 140 (135-144) mmol/L Sodium 138 (136-145) mmol/L POC Potassium 4.9 (3.3-5.0) mmol/L Potassium 4.8 (3.5-5.1) mmol/L POC Chloride 101 (101-112) mmol/L Chloride 108 H (98-107) mmol/L Carbon Dioxide 26 (21-32) mmol/L POC Total CO2 26 (24-31) mmol/L Anion Gap 4 (3-11) POC Anion Gap 19.0 (16-25) mmol/L POC BUN 17 (7-18) mg/dl BUN 18 (6-23) mg/dl Creatinine 0.69 (0.6-1.4) mg/dl POC Creatinine 0.7 (0.6-1.3) mg/dl Est Cr Clr Drug Dosing 86.5 ml/min eGFR 99.56 BUN/Creatinine Ratio 26.1 H (10-20) Glucose 143 H (70-99(Fasting)) mg/dl POC Glucose (other) 134 H (70-99) mg/dl Calcium 7.9 L (8.6-10.3) mg/dl POC Ioniz Calcium Ugo 1.21 (1.12-1.32) mmol/l Magnesium 1.7 (1.7-2.4) mg/dl 25-OH Vitamin D Total 21.3 L (30-100) ng/ml Blood Type O Positive Antibody Screen NEGATIVE (1) Closed fracture of left hip Encounter type: initial encounter Qualified Code(s): S72.002A - Fracture of unspecified part of neck of left femur, initial encounter for closed fracture
[2024-06-17] MEDS: oxyCODONE HCL IR 5 MG TAB (IMMEDIATE RELEASE) PO PRN (09:59)
[2024-06-17] MEDS: SODIUM CHLORIDE 0.9% 500 ML IV ONE (11:56)
[2024-06-18 07:20] LABS: Mean Corpuscular Hemoglobin 31.9 pg (25.0-34.0); Mean Corpuscular Hgb Conc 33.2 g/dL (32.0-36.0); Mean Corpuscular Volume 96.2 fL (80.0-100.0); Mean Platelet Volume 9.9 fL (9.4-12.4); Platelet Count 175 K/uL (130-400); RDW Coefficient of Variation 13.1 % (11.5-14.5); RDW Standard Deviation 45.3 fL (36.4-46.3); White Blood Count 14.75 K/ul (4.8-10.8)
[2024-06-18 07:21] LABS: Hematocrit (blood only) 20.2 % (42.0-52.0); Hemoglobin 6.7 g/dl (14.0-18.0)
[2024-06-18 07:40] LABS: Basophils # (auto) 0.03 K/uL (0.00-0.20); Basophils % (auto) 0.2 %; Eosinophils # (auto) 0.03 K/uL (0.00-0.50); Eosinophils % (auto) 0.2 %; Immature Granulocytes # (auto) 0.06 K/uL (0.01-0.20); Immature Granulocytes % (auto) 0.4 %; Lymphocytes % (auto) 11.5 %; Monocytes # (auto) 1.72 K/uL (0.11-0.59); Monocytes % (auto) 11.7 %; Neutrophils # (auto) 11.21 K/uL (1.40-6.50); RBC Morphology Unremarkable
--- NOTE | 2024-06-18 07:48 | Orthopedic Progress Note ---
Date of Service June 18, 2024 Assessment & Plan (1) Closed fracture of left hip: Plan: POD # 2 s/p ORIF left hip fracture Acute anemia blood loss, Hgb 6.7, repeat H&H stat, 6.8, will transfuse 2 units pRBC, Tachy WBAT with walker Resume diet. PT/OT DVT prophylaxis: TEDs, SCD's while in hospital, ASA 81 mg PO BID x 3 weeks Continue pain control Ice left hip Dressing changed 06/18/24 D/C Planning Continue care per primary service Admission and Anticipated Discharge Date Admission Date: June 16, 2024 Physical Exam Physical Exam: LLE sensation to light touch intact distally. 2+ DP pulse. Able to wiggle toes and ankle. Incisions clean, dry, intact Results & Data Vital Signs (Past 12 Hours) Vital Signs Temp Pulse Resp BP Pulse Ox O2 Del Method O2 Flow Rate 06/18/24 07:36 Nasal Cannula 2 06/18/24 07:31 105 H 20 95 Nasal Cannula 2 06/18/24 07:22 37.3 C 110 H 16 110/64 95 Nasal Cannula 06/17/24 23:06 Nasal Cannula 4 06/17/24 20:11 36.6 C 101 H 16 135/83 95 Nasal Cannula 4 Laboratory Results 06/18/24 Range/Units 06:32 WBC 14.75 H (4.8-10.8) K/ul RBC 2.10 L (4.70-6.10) M/uL Hgb 6.7 L* (14.0-18.0) g/dl Hct 20.2 L* (42.0-52.0) % MCV 96.2 (80.0-100.0) fL MCH 31.9 (25.0-34.0) pg MCHC 33.2 (32.0-36.0) g/dL RDW Std Deviation 45.3 (36.4-46.3) fL RDW Coeff of Lulú 13.1 (11.5-14.5) % Plt Count 175 (130-400) K/uL MPV 9.9 (9.4-12.4) fL Immature Gran % (Auto) 0.4 % Neut % (Auto) 76.0 % Lymph % (Auto) 11.5 % Darke % (Auto) 11.7 % Eos % (Auto) 0.2 % Baso % (Auto) 0.2 % Neut # (Auto) 11.21 H (1.40-6.50) K/uL Lymph # (Auto) 1.70 (1.20-3.40) K/uL Darke # (Auto) 1.72 H (0.11-0.59) K/uL Eos # (Auto) 0.03 (0.00-0.50) K/uL Baso # (Auto) 0.03 (0.00-0.20) K/uL Immature Gran # (Auto) 0.06 (0.01-0.20) K/uL RBC Morphology Unremarkable (1) Closed fracture of left hip Encounter type: initial encounter Qualified Code(s): S72.002A - Fracture of unspecified part of neck of left femur, initial encounter for closed fracture
[2024-06-18 08:21] LABS: Hematocrit (blood only) 21.1 % (42.0-52.0); Hemoglobin 6.8 g/dl (14.0-18.0)
[2024-06-18] MEDS ORDERED: SODIUM CHLORIDE 0.9% 50 ML IV PRN ×2 (08:29→08:33)
[2024-06-18] MEDS ORDERED: SODIUM CHLORIDE 0.9% 100 ML IV PRN ×2 (08:29→08:33)
--- NOTE | 2024-06-18 08:54 | Hospitalist Progress Note ---
Date of Service June 18, 2024 Assessment & Plan (1) Closed fracture of left hip: Plan: Status post ORIF of the left hip, pain is well-controlled, patient is making good progress, no complaint of pain anymore. (2) Seizure disorder: Plan: Continue with home dose of phenytoin and Depakote. (3) ABLA (acute blood loss anemia): Plan: Hemoglobin dropped to 6.8, his initial hemoglobin was 11.3, orthopedic service ordered 2 units of PRBC which I do concur, monitor H&H. This seems to be anemia of blood loss after surgery. Plan Continue monitoring H&H and transfuse as needed, he would need authorization by his insurance to return to his facility, likely tomorrow. Admission and Anticipated Discharge Date Admission Date: June 16, 2024 Subjective Patient is a 69-year-old gentleman resident at [facility] with history of COPD, prior traumatic brain injury, seizure disorder who apparently had a fall and had left hip fracture, patient was seen by orthopedics and was taken for open reduction internal fixation of left hip on 06/16/2024. Patient was seen and examined today, he overall looks just fine, he is from facility and I was told that he needs authorization for returning to his facility which is going to take place likely tomorrow. His hemoglobin dropped to 6.8 and from the orthopedic service 2 units of PRBC ordered which I concur. Physical Exam Physical Exam: VITALS: Reviewed. WEIGHT/BMI reviewed. CV: RRR, no m/r/g. LUNGS: CTAB, no w/r/c. EXT: status post left ORIF Results & Data Results & Data Vital Signs (Past 12 Hours) Vital Signs Temp Pulse Resp BP Pulse Ox O2 Del Method O2 Flow Rate 06/18/24 07:36 Nasal Cannula 2 06/18/24 07:31 105 H 20 95 Nasal Cannula 2 06/18/24 07:22 37.3 C 110 H 16 110/64 95 Nasal Cannula 06/17/24 23:06 Nasal Cannula 4 Laboratory Results Laboratory Results - last 24 hr 06/16/24 06/18/24 06/18/24 00:15 06:32 08:06 WBC 14.75 H RBC 2.10 L Hgb 6.7 L* 6.8 L* Hct 20.2 L* 21.1 L MCV 96.2 MCH 31.9 MCHC 33.2 RDW Std Deviation 45.3 RDW Coeff of Lulú 13.1 Plt Count 175 MPV 9.9 Immature Gran % (Auto) 0.4 Neut % (Auto) 76.0 Lymph % (Auto) 11.5 [place] % (Auto) 11.7 Eos % (Auto) 0.2 Baso % (Auto) 0.2 Neut # (Auto) 11.21 H Lymph # (Auto) 1.70 [place] # (Auto) 1.72 H Eos # (Auto) 0.03 Baso # (Auto) 0.03 Immature Gran # (Auto) 0.06 RBC Morphology Unremarkable Blood Type O Positive Antibody Screen NEGATIVE Crossmatch See Detail Medications Administered Current Inpatient Medications Albuterol (Albuterol Hfa 8 Gm Inhaler) 1 puffs INH Q6H PRN; Protocol PRN Reason: SOB/WHEEZING Stop: 07/16/24 03:31 Aspirin (Aspirin 81 Mg Ectab) 81 mg PO BID [facility] Stop: 07/17/24 08:59 Last Admin: 06/17/24 20:05 Dose: 81 mg Baclofen (Baclofen 10 Mg Tab) 5 mg PO BID [facility] Stop: 07/16/24 08:59 Last Admin: 06/18/24 08:13 Dose: 5 mg Bisacodyl (Bisacodyl 10 Mg Supp) 10 mg FL DAILY PRN PRN Reason: Constipation Stop: 07/16/24 03:07 Calcium Carbonate (Calcium Carbonate 500 Mg Chewable Tab) 500 mg PO QID PRN PRN Reason: Heartburn Stop: 07/16/24 03:28 Divalproex Sodium (Divalproex Delay Release 125 Mg Tabec) 125 mg PO BID [facility] Stop: 07/16/24 08:59 Last Admin: 06/18/24 08:14 Dose: 125 mg Fluticasone/Vilanterol (Fluticasone/Vilanterol 100/25mcg 14 Puffs/Inhaler) 1 puffs INH DAILY [facility] Stop: 07/16/24 08:59 Last Admin: 06/18/24 07:34 Dose: 1 puffs Hydromorphone HCl (Hydromorphone Inj 0.5 Mg/0.5 Ml Syr) 0.25 mg IV Q4H PRN PRN Reason: Moderate Pain (Scale 4, 5, 6) Stop: 06/30/24 03:07 Hydromorphone HCl (Hydromorphone Inj 0.5 Mg/0.5 Ml Syr) 0.5 mg IV Q4H PRN PRN Reason: Severe Pain (Scale 7, 8, 9,10) Stop: 06/30/24 03:07 Last Admin: 06/18/24 00:58 Dose: 0.5 mg Sodium Chloride (Nss) 100 mls @ 15 mls/hr IV .Q6H40M PRN PRN Reason: For Transfusion Duration Stop: 06/18/24 16:29 Sodium Chloride (Nss) 50 mls @ 15 mls/hr IV .Q3H20M PRN PRN Reason: For Transfusion Duration Stop: 06/18/24 16:29 Sodium Chloride (Nss) 100 mls @ 15 mls/hr IV .Q6H40M PRN PRN Reason: For Transfusion Duration Stop: 06/18/24 16:33 Sodium Chloride (Nss) 50 mls @ 15 mls/hr IV .Q3H20M PRN PRN Reason: For Transfusion Duration Stop: 06/18/24 16:33 Ipratropium [place] (Ipratropium [place] Hfa Inhaler) 1 puffs INH Q6H PRN; Protocol PRN Reason: SOB/WHEEZING Stop: 07/16/24 03:31 Miscellaneous (Remove Nicoderm Patch) 1 each N/A DAILY@0859 [facility] Stop: 07/18/24 08:58 Last Admin: 06/18/24 07:32 Dose: 1 each Multivitamins/Minerals (Cerovite Adv Formula Tab) 1 tab PO DAILY [facility] Stop: 07/16/24 08:59 Last Admin: 06/18/24 08:14 Dose: 1 tab Nicotine (Nicotine 21 Mg/24 Hr Tdsy) 1 patch TD DAILY [facility] Stop: 07/17/24 05:14 Last Admin: 06/18/24 07:32 Dose: 1 patch Ondansetron HCl (Ondansetron Inj 2 Mg/Ml 2 Ml Vial) 4 mg IV Q6H PRN PRN Reason: Nausea/Vomiting Stop: 07/16/24 10:38 Oxycodone HCl (Oxycodone Hcl Ir 5 Mg Tab (Immediate Release)) 5 mg PO Q6 PRN PRN Reason: pain Stop: 07/01/24 08:30 Last Admin: 06/18/24 08:16 Dose: 5 mg Phenytoin Sodium (Phenytoin Sodium Er 100 Mg Cap) 100 mg PO DAILY [facility] Stop: 07/16/24 08:59 Last Admin: 06/18/24 08:14 Dose: 100 mg Phenytoin Sodium (Phenytoin Sodium Er 30 Mg Cap) 60 mg PO HS [facility] Stop: 07/16/24 20:59 Last Admin: 06/17/24 20:04 Dose: 60 mg Polyethylene Glycol (Polyethylene (Miralax) 17 Gm Pack) 17 gm PO DAILY PRN PRN Reason: Constipation Stop: 07/16/24 03:07 Last Admin: 06/18/24 08:13 Dose: 17 gm Sertraline HCl (Sertraline Hcl 50 Mg Tablet) 25 mg PO DAILY [facility] Stop: 07/16/24 08:59 Last Admin: 06/18/24 08:13 Dose: 25 mg (1) Closed fracture of left hip Encounter type: initial encounter Qualified Code(s): S72.002A - Fracture of unspecified part of neck of left femur, initial encounter for closed fracture
[2024-06-18] MEDS: ACETAMINOPHEN 325 MG TAB PO SCH (17:36)
[2024-06-18 19:22] VITALS: PULSE 90
--- NOTE | 2024-06-19 08:09 | Fluoroscopy Report ---
FL hip LT 2-3V CLINICAL HISTORY: LEFT TROCH NAIL COMPARISON STUDY: Pelvis and left hip radiographs June 15, 2024. FLUOROSCOPY TIME: 76.4 seconds. Ka,r: 14.88 mGy FLUOROSCOPIC IMAGES: 4 FINDINGS: Fluoroscopy was provided during open reduction and internal fixation of the intertrochanter ic fracture of the left femur. Fracture alignment has significantly improved and appears near anatomi c. Trochanteric nail is in place. Hardware is intact. There are no unexpected radiopaque foreign bodi es. IMPRESSION: Fluoroscopy provided during open reduction and internal fixation of the intertrochanteri c fracture of the left femur. ACT 112: Negative or not required by law. Electronically signed by: Markel Abdi M.D. 06/19/2024 7:32 AM
[2024-06-19 08:15] LABS: Basophils # (auto) 0.02 K/uL (0.00-0.20); Basophils % (auto) 0.2 %; Eosinophils # (auto) 0.07 K/uL (0.00-0.50); Eosinophils % (auto) 0.7 %; Hematocrit (blood only) 28.4 % (42.0-52.0); Hemoglobin 9.6 g/dl (14.0-18.0); Immature Granulocytes # (auto) 0.06 K/uL (0.01-0.20); Immature Granulocytes % (auto) 0.6 %; Lymphocytes # (auto) 1.08 K/uL (1.20-3.40); Lymphocytes % (auto) 11.5 %; Mean Corpuscular Hemoglobin 30.4 pg (25.0-34.0); Mean Corpuscular Hgb Conc 33.8 g/dL (32.0-36.0); Mean Corpuscular Volume 89.9 fL (80.0-100.0); Mean Platelet Volume 9.6 fL (9.4-12.4); Monocytes # (auto) 1.02 K/uL (0.11-0.59); Monocytes % (auto) 10.9 %; Neutrophils # (auto) 7.12 K/uL (1.40-6.50); Neutrophils % (auto) 76.1 %; Platelet Count 145 K/uL (130-400); RDW Coefficient of Variation 14.6 % (11.5-14.5); RDW Standard Deviation 47.6 fL (36.4-46.3); Red Blood Count 3.16 M/uL (4.70-6.10); White Blood Count 9.37 K/ul (4.8-10.8)
[2024-06-19 08:17] VITALS: RESP 14; TEMP 98.4; O2SAT 91
--- NOTE | 2024-06-19 09:38 | Orthopedic Progress Note ---
Date of Service June 19, 2024 Assessment & Plan (1) Closed fracture of left hip: Plan: POD # 3 s/p ORIF left hip fracture Acute anemia blood loss, Hgb 9.6 after being transfused 2 units pRBC, 06/18/24 WBAT with walker Resume diet. PT/OT DVT prophylaxis: TEDs, SCD's while in hospital, ASA 81 mg PO BID x 3 weeks Continue pain control Ice left hip Dressing changed 06/18/24 D/C Planning Continue care per primary service Admission and Anticipated Discharge Date Admission Date: June 16, 2024 Subjective Left hip pain. Not as tired. Physical Exam Physical Exam: LLE sensation to light touch intact distally. 2+ DP pulse. Able to wiggle toes and ankle. Incisions clean, dry, intact Results & Data Vital Signs (Past 12 Hours) Vital Signs Temp Pulse Resp BP Pulse Ox O2 Del Method O2 Flow Rate 06/19/24 07:50 36.9 C 90 14 110/70 91 Room Air 06/18/24 21:40 Nasal Cannula 2 Laboratory Results 06/19/24 06/16/24 Range/Units 07:30 00:15 WBC 9.37 (4.8-10.8) K/ul RBC 3.16 L (4.70-6.10) M/uL Hgb 9.6 L (14.0-18.0) g/dl Hct 28.4 L (42.0-52.0) % MCV 89.9 D (80.0-100.0) fL MCH 30.4 (25.0-34.0) pg MCHC 33.8 (32.0-36.0) g/dL RDW Std Deviation 47.6 H (36.4-46.3) fL RDW Coeff of Lulú 14.6 H (11.5-14.5) % Plt Count 145 (130-400) K/uL MPV 9.6 (9.4-12.4) fL Immature Gran % (Auto) 0.6 % Neut % (Auto) 76.1 % Lymph % (Auto) 11.5 % [place]field % (Auto) 10.9 % Eos % (Auto) 0.7 % Baso % (Auto) 0.2 % Neut # (Auto) 7.12 H (1.40-6.50) K/uL Lymph # (Auto) 1.08 L (1.20-3.40) K/uL [place] # (Auto) 1.02 H (0.11-0.59) K/uL Eos # (Auto) 0.07 (0.00-0.50) K/uL Baso # (Auto) 0.02 (0.00-0.20) K/uL Immature Gran # (Auto) 0.06 (0.01-0.20) K/uL Blood Type O Positive Antibody Screen NEGATIVE Crossmatch See Detail (1) Closed fracture of left hip Encounter type: initial encounter Qualified Code(s): S72.002A - Fracture of unspecified part of neck of left femur, initial encounter for closed fracture
--- NOTE | 2024-06-19 09:49 | Discharge Summary ---
Discharge Summary Date of Service June 19, 2024 Principal Dx & Hospital Course #1 = Principal Diagnosis (1) Closed fracture of left hip: (2) Seizure disorder: (3) ABLA (acute blood loss anemia): Notes For Next Care Provider Medication Changes From Visit Oxycodone 5 mg every 6 hours as needed MiraLAX 17 g packet daily as needed Admission HPI Per Admitting Provider Patient is a 69-year-old gentleman resident at [facility] with history of COPD, prior traumatic brain injury, seizure disorder who apparently h ad a fall and had left hip fracture, patient was seen by orthopedics and was taken for open reduction internal fixation of left hip on 06/16/2024. Patient remained stable and was seen by physical therapy, on 06/18/2024 patient was found to have his hemoglobin dropped to 6.8, this was considered to be ABLA, patient was transfused with 2 units of PRBC and hemoglobin improved to 9.6 today. Patient was seen and examined, case was discussed with nursing staff and also case management, it seems that he will be able to return to his facility while pending his insurance authorization for his status to be changed to skilled. Discharge Exam VITALS: Reviewed. CV: RRR, no m/r/g. LUNGS: CTAB, no w/r/c. EXT: status post left ORIF Updated Medication List Medication Instructions Recorded Confirmed Type baclofen 5 mg tablet 5 mg PO BID 06/16/24 06/16/24 History bisacodyl 10 mg rectal suppository 10 mg CO DAILY PRN Constipation 06/16/24 06/16/24 History (Dulcolax (bisacodyl)) calcium carbonate 650 mg PO QID PRN Heartburn 06/16/24 06/16/24 History divalproex 125 mg tablet,delayed 125 mg PO BID 06/16/24 06/16/24 History release (Depakote) fluticasone furoate 100 1 inh inhalation DAILY 06/16/24 06/16/24 History mcg-vilanterol 25 mcg/dose inhalation powder (Breo Ellipta) ipratropium 20 mcg-albuterol 100 1 puff inhalation Q6H PRN 06/16/24 06/16/24 History mcg/actuation mist for inhalation Shortness Of Breath Or Wheezing (Combivent Respimat) multivitamin with minerals 1 tab PO DAILY 06/16/24 06/16/24 History phenytoin sodium extended 100 mg 100 mg PO DAILY 06/16/24 06/16/24 History capsule phenytoin sodium extended 30 mg 60 mg PO HS 06/16/24 06/16/24 History capsule (Dilantin) sertraline 25 mg tablet (Zoloft) 25 mg PO DAILY 06/16/24 06/16/24 History aspirin 81 mg tablet,delayed 81 mg PO BID 42 days #84 tabs 06/19/24 Rx release oxycodone 5 mg tablet 5 mg PO Q6 PRN pain #30 tabs 06/19/24 Rx polyethylene glycol 3350 17 gram 17 g PO DAILY PRN constipation #14 06/19/24 Rx oral powder packet (Miralax) ea Hospital Stay Data Consultations 06/15/24 23:42 ED Decision to Admit Stat 06/16/24 07:00 Consult Orthopedic Surgery Routine Procedures Performed Operation Date: 06/16/24 08:40 Actual Procedures p Open Reduction Internal Fixation of Left Hip Fracture(Left) - Keegan Montez Brown MD Diagnostic Imagining Performed 06/16/24 FL hip LT 2-3V Routine Pending Results Patient Have Any Pending Studies at Discharge: No Discharge Instructions Given to Patient (Per Discharging Provider) Follow with recommendation per orthopedics Total Time Total Time Spent Total Time Spent (In Minutes): More than 35 minutes
[2024-06-19 10:06] VITALS: BP 119/77
== END 2024-06-19 11:45 | DRG 481 ==
LOC: ED 22:57 → EDINP 06-16 01:54 → 3E 06-16 08:41